=== PATIENT | female | born 1980 | race Caucasian/White ===

== ENCOUNTER 2016-06-11 05:22 | Emergency (ER) | payer OTHER ==
[~2016-06-11] VITALS: Ht 165.1 cm; Wt 74.8 kg
[~2016-06-11 05:22] MED LIST: AGM875T PO; ALPR.5T; AMOX500C2 PO; CTLP20T; CYCL10TA9 PO; HYDR-3454 PO; HYDR-757 PO; HYDR1TAB8 OP; IBUP-2055 PO; METR500T21 PO; NAPR-243 PO; ONDA8TAB9 PO; ONDAN4ODT PO; PRD20T PO; PRD5T PO; SSD50T TOP; TRAM50TA2 PO; TRM50T PO
--- OUTSIDE RECORDS SUMMARY | 2016-06-11 05:30 | XMS REPORT | Continuity of Care Document ---
Author Author [facility] Organization [facility] Address Unknown Phone Unavailable Care Team Providers Care Metropolitan Editor Name Role Phone [facility] PCP Insurance Providers Payer Name Policy Number Subscriber Name Relationship Enter Insurance Name [id number] Stephania Browne Jr 01 Advance Directives Directive Response Recorded Date/Time Advance Directives No 10/04/15 9:27am Health Care Power of Corporate Communications Manager No 10/04/15 9:27am Organ Donor No 10/04/15 9:27am Resuscitation Status Full Code 10/04/15 9:27am Problems Active Problems Medical Problem Onset Date Status Abdominal pain Unknown Acute Bacterial vaginosis Unknown Acute Cholecystitis with cholelithiasis Unknown Acute Contusion of wrist Unknown Acute Dental caries into pulp Unknown Acute Facial swelling Unknown Acute Labile hypertension Unknown Acute Labile hypertension Unknown Acute Small bowel ischemia Unknown Acute Strain of wrist, right Unknown Acute small bowel obstruction with ischemia Unknown Acute Medications Current Home Medications Medication Dose Units Route Directions Days/Qty Instructions Start Date Tramadol Hcl 50 Mg 50 Mg Oral Three Times A Day as needed for Pain 10/03/15 Ibuprofen 200 Mg 400 Mg Oral Daily as needed for Pain TAKES 2 (200 MG) TABLETS 10/04/15 Hydrocodone/Acetaminophen 1 Each 1 Each Oral Every 4HRS as needed for Abdominal Pain 30 10/05/15 Past Home Medications Medication Directions Ordered Status Alprazolam 0.5 Mg Tablet, 08/23/09 Discontinued Citalopram Hydrobromide 20 Mg Tablet, 08/23/09 Discontinued Prednisone 5 Mg Tab, 5 Mg Oral As Directed 11/25/09 Discontinued Silver Sulfadiazine 50 Gm Cr, 0 Topically Three Times A Day 08/02/10 Discontinued Hydrocodone Bitartrate/Ibuprofen 1 Each Tablet, 1 - 2 Each Ophthalmic Q 4 - 6 Hrs Prn 08/02/10 Discontinued Cyclobenzaprine Hcl (Flexeril) 10 Mg Tablet, 1 Each Oral Q8hr Prn 10/18/11 Discontinued Naproxen 500 Mg Tablet, 1 Each Oral Three Times A Day And Prn 10/18/11 Discontinued Naproxen 500 Mg Tablet, 1 Each Oral Three Times A Day And Prn 10/31/11 Discontinued Tramadol Hcl 50 Mg Tab, 50 Mg Oral Q4-6HOURS as needed 10/31/11 Discontinued Ondansetron Hcl 4 Mg Tab, 4 Mg Oral Every 4HRS 10/31/11 Discontinued Amoxicillin 500 Mg Capsule, 2 Each Oral Three Times A Day 09/29/12 Discontinued Prednisone 20 Mg Tab, 40 Mg Oral Daily 09/29/12 Discontinued Amoxicillin/Clavulanate K 875 Mg Tab, 1 Tab Oral Twice A Day 08/01/14 Discontinued Hydrocodone Bit/Acetaminophen 1 Each Tablet, 1 Ea Oral Every 6 Hours as needed for Mild Pain 08/01/14 Discontinued Metronidazole 500 Mg Tablet, 500 Mg Oral Twice A Day 01/01/15 Discontinued Hydrocodone/Acetaminophen 1 Each Tablet, 1 Each Oral Every 4HRS as needed for Pain 10/03/15 Discontinued Ondansetron 8 Mg Tab.rapdis, 8 Mg Oral Every 4HRS as needed for Nausea/ Vomiting 10/03/15 Discontinued Social History Social History Problem Response Recorded Date/Time Alcohol Use Denies Use 10/04/2015 9:27am Recreational Drug Use No 10/04/2015 9:27am Recent Foreign Travel No 10/04/2015 9:27am Recent Infectious Disease Exposure No 10/04/2015 9:27am Hospitalization with Isolation Denies 10/05/2015 2:33pm Sexually Transmitted Disease No 10/04/2015 9:27am HIV/AIDS No 10/04/2015 9:27am Smoking Status Current Everyday Smoker 10/04/2015 9:27am Query Response Start Date Stop Date Smoking Status Current Everyday Smoker Hospital Discharge Instructions Patient Instructions Physician Instructions New, Converted or Re-Newed RX: RX on Chart Plan of Care/Instructions/FU: Dressings off in 48 hours. Incentive spirometry. F/U in 3 weeks Activity as Tolerated: Yes Discharge Diet: No Restrictions Care Plan Patient Instructions:: Dressings off in 48 hours. Incentive spirometry. F/U in 3 weeks Plan of Care Discharge Date 10/05/15 1:35pm Disposition 01 HOME, SELF-CARE Instructions/Education Provided Laparoscopic Cholecystectomy (DC) Forms Provided PDI Surgical Prescriptions See Medication Section Referrals (Unspecified) - Reason(s) for Referral: FOLLOW UP WITH DR WOO ON 10/27/15 AT 11:00 Care Plan and Goals See Discharge Instructions Section Functional Status Query Response Date Recorded Patient Orientation Person Place Time Situation Normal For Age October 05, 2015 2:33pm Comprehension Ability Understands Concepts October 04, 2015 9:27am Allergies, Adverse Reactions, Alerts Allergen Type Severity Reaction Status Last Updated Morphine Allergy Unknown Active 10/04/15 Immunizations Name Given Type Date of Influenza Vaccine 01/27/14 Historical Hepatitis A No Historical Hepatitis B No Historical Tetanus Booster (TDap) Less than 5yrs Historical Vital Signs Acute Vital Signs Vital Response Date/Time Temperature (Fahrenheit) 97.8 degrees F (97.6 - 99.5) 10/05/2015 2:31pm Temperature (Calculated Celsius) 36.32549 degrees C (36.4 - 37.5) 10/05/2015 1:00pm Temperature Source Tympanic 10/05/2015 2:31pm Pulse Rate (adult) 84 bpm (60 - 90) 10/05/2015 2:31pm Respiratory Rate 20 bpm (12 - 24) 10/05/2015 2:31pm O2 Sat by Pulse Oximetry 97 % (88 - 100) 10/05/2015 2:31pm Blood Pressure 133/85 mm Hg 10/05/2015 2:31pm Blood Pressure Mean 101 mm Hg 10/05/2015 1:00pm Pain Pain Intensity 4 10/05/2015 1:00pm Height (Feet) 5 feet 10/04/2015 9:27am Height (Inches) 5.00 inches 10/04/2015 9:27am Height (Calculated Centimeters) 165.501245 cm 10/04/2015 9:27am Weight (Pounds) 162 pounds 10/04/2015 9:27am Weight (Ounces) 0.0 oz 10/04/2015 9:27am Weight (Calculated Grams) 03517.965 gm 10/04/2015 9:27am Weight (Calculated Kilograms) 73.304590 kilograms 10/04/2015 9:27am Calculated BMI 27.0 10/04/2015 9:27am Results Laboratory Results Test Name Result Units Flags Reference Collection Date/Time Result Date/ Time Comments White Blood Count 11.6 10^3/uL H 4.3-11.0 10/03/2015 5:10pm 10/03/2015 5: 19pm Red Blood Count 4.69 10^6/uL 4.35-5.85 10/03/2015 5:10pm 10/03/2015 5: 19pm Hemoglobin 14.6 G/DL 11.5-16.0 10/03/2015 5:10pm 10/03/2015 5:19pm Hematocrit 42 % 35-52 10/03/2015 5:10pm 10/03/2015 5:19pm Mean Corpuscular Volume 89 FL 80-99 10/03/2015 5:10pm 10/03/2015 5: 19pm Mean Corpuscular Hemoglobin 31 PG 25-34 10/03/2015 5:10pm 10/03/2015 5: 19pm Mean Corpuscular Hemoglobin Concent 35 G/DL 32-36 10/03/2015 5:10pm 09/2015 5:19pm Red Cell Distribution Width 12.0 % 10.0-14.5 10/03/2015 5:10pm 2015 5:19pm Platelet Count 310 10^3/uL 130-400 10/03/2015 5:10pm 10/03/2015 5:19pm Mean Platelet Volume 9.3 FL 7.4-10.4 10/03/2015 5:10pm 10/03/2015 5: 19pm Neutrophils (%) (Auto) 50 % 42-75 10/03/2015 5:10pm 10/03/2015 5:19pm Lymphocytes (%) (Auto) 35 % 12-44 10/03/2015 5:10pm 10/03/2015 5:19pm Monocytes (%) (Auto) 10 % 0-12 10/03/2015 5:10pm 10/03/2015 5:19pm Eosinophils (%) (Auto) 5 % 0-10 10/03/2015 5:10pm 10/03/2015 5:19pm Basophils (%) (Auto) 1 % 0-10 10/03/2015 5:10pm 10/03/2015 5:19pm Neutrophils # (Auto) 5.8 X 10^3 1.8-7.8 10/03/2015 5:10pm 10/03/2015 5: 19pm Lymphocytes # (Auto) 4.0 X 10^3 1.0-4.0 10/03/2015 5:10pm 10/03/2015 5: 19pm Monocytes # (Auto) 1.2 X 10^3 H 0.0-1.0 10/03/2015 5:10pm 10/03/2015 5: 19pm Eosinophils # (Auto) 0.5 10^3/uL H 0.0-0.3 10/03/2015 5:10pm 10/03/2015 5 :19pm Basophils # (Auto) 0.1 10^3/uL 0.0-0.1 10/03/2015 5:10pm 10/03/2015 5: 19pm Urine Color YELLOW 10/03/2015 4:39pm 10/03/2015 5:01pm Urine Clarity CLEAR 10/03/2015 4:39pm 10/03/2015 5:01pm Urine pH 7 5-9 10/03/2015 4:39pm 10/03/2015 5:01pm Urine Specific [place] 1.005 * 1.016-1.022 10/03/2015 4:39pm 2015 5:01pm Urine Protein NEGATIVE NEGATIVE 10/03/2015 4:39pm 10/03/2015 5:01pm Urine Glucose (UA) NEGATIVE NEGATIVE 10/03/2015 4:39pm 10/03/2015 5: 01pm Urine RBC (Auto) NEGATIVE NEGATIVE 10/03/2015 4:39pm 10/03/2015 5: 01pm Urine Ketones NEGATIVE NEGATIVE 10/03/2015 4:39pm 10/03/2015 5:01pm Urine Nitrite NEGATIVE NEGATIVE 10/03/2015 4:39pm 10/03/2015 5:01pm Urine Bilirubin NEGATIVE NEGATIVE 10/03/2015 4:39pm 10/03/2015 5: 01pm Urine Urobilinogen NORMAL MG/DL NORMAL 10/03/2015 4:39pm 10/03/2015 5: 01pm Urine Leukocyte Esterase NEGATIVE NEGATIVE 10/03/2015 4:39pm 2015 5:01pm Urine RBC NONE /HPF 10/03/2015 4:39pm 10/03/2015 5:01pm Urine WBC RARE /HPF 10/03/2015 4:39pm 10/03/2015 5:01pm Urine Bacteria NONE /HPF 10/03/2015 4:39pm 10/03/2015 5:01pm Urine Squamous Epithelial Cells 5-10 /HPF 10/03/2015 4:39pm 2015 5:01pm Urine Crystals NONE /LPF 10/03/2015 4:39pm 10/03/2015 5:01pm Urine Casts NONE /LPF 10/03/2015 4:39pm 10/03/2015 5:01pm Urine Mucus NEGATIVE /LPF 10/03/2015 4:39pm 10/03/2015 5:01pm Urine Culture Indicated NO 10/03/2015 4:39pm 10/03/2015 5:01pm Sodium Level 138 MMOL/L 135-145 10/03/2015 5:10pm 10/03/2015 5:42pm Potassium Level 3.8 MMOL/L 3.6-5.0 10/03/2015 5:10pm 10/03/2015 5:42pm Chloride Level 107 MMOL/L 98-107 10/03/2015 5:10pm 10/03/2015 5:42pm Carbon Dioxide Level 24 MMOL/L 21-32 10/03/2015 5:10pm 10/03/2015 5: 42pm Anion Gap 7 MMOL/L 5-14 10/03/2015 5:10pm 10/03/2015 5:42pm Blood Urea Nitrogen 7 MG/DL 7-18 10/03/2015 5:10pm 10/03/2015 5:42pm Creatinine 0.62 MG/DL 0.60-1.30 10/03/2015 5:10pm 10/03/2015 5:42pm BUN/Creatinine Ratio 11 10/03/2015 5:10pm 10/03/2015 5:42pm Estimat Glomerular Filtration Rate > 60 10/03/2015 5:10pm 2015 5:42pm GFR INTERPRETIVE DATA UNITS FOR ESTIMATED GFR (eGFR): mL/min/1.73 M2 REFERENCE RANGE FOR ESTIMATED GFR (eGFR) eGFR NORMAL eGFR >60 MODERATELY DECREASED eGFR 30-59 SEVERLY DECREASED eGFR 15-29 KIDNEY FAILURE <15 (OR DIALYSIS) Glucose Level 84 MG/DL 70-105 10/03/2015 5:10pm 10/03/2015 5:42pm Calcium Level 8.7 MG/DL 8.5-10.1 10/03/2015 5:10pm 10/03/2015 5:42pm Total Bilirubin 0.3 MG/DL 0.1-1.0 10/03/2015 5:10pm 10/03/2015 5:42pm Alkaline Phosphatase 71 U/L 40-136 10/03/2015 5:10pm 10/03/2015 5:42pm Aspartate Amino Transf (AST/SGOT) 11 U/L 5-34 10/03/2015 5:10pm 2015 5:42pm Alanine Aminotransferase (ALT/SGPT) 10 U/L 0-55 10/03/2015 5:10pm 10/02 5:42pm Total Protein 6.5 G/DL 6.4-8.2 10/03/2015 5:10pm 10/03/2015 5:42pm Albumin 4.1 G/DL 3.2-4.5 10/03/2015 5:10pm 10/03/2015 5:42pm Amylase Level 38 U/L 25-125 10/03/2015 5:10pm 10/03/2015 5:42pm Lipase 32 U/L 8-78 10/03/2015 5:10pm 10/03/2015 5:42pm Procedures Procedure Status Date Provider(s) Robot-assisted laparoscopic cholecystectomy Completed 10/05/15 RONALD WOO MD Encounters Encounter Location Arrival/Admit Date Discharge/Depart Date Attending Provider Discharged Inpatient (obs) [facility] 10/04/15 8:41am 1:35pm RONALD WOO MD Departed Emergency Room [facility] 10/03/15 3:51pm 10/02 7:56pm ZAC VICENTE APRN
[2016-06-11] MEDS ORDERED: DEXAMETHASONE PF 10 MG/ML (DECADRON) VIAL IM STA (05:36)
--- NOTE | 2016-06-11 05:42 | ED Cough/URI ---
General Chief Complaint: Cough/Cold/Flu Symptoms Stated Complaint: SORE THROAT, COUGH, WIZZY Source: patient Exam Limitations: no limitations History of Present Illness Time seen by provider: 05:30 Initial Comments Here with report of cough, runny nose, nasal congestion and mild sore throat for the last 2 days. States she overall just doesn't feel well. She is drinking okay but eating a little less. Maybe some mild nausea but no vomiting. Denies diarrhea. Denies fever. Does feel chills. Timing/Duration: getting worse Severity/Quality: mild, dry cough Associated Symptoms: cough, muscle aches, nasal congestion, nasal drainage, sore throat, wheezing Allergies and Home Medications Allergies Coded Allergies: morphine (Verified Allergy, Unknown, 10/04/15) Home Medications No Active Prescriptions or Reported Meds Constitutional: see HPI chillsNo fever EENTM: nose congestion throat pain Respiratory: cough wheezing Cardiovascular: no symptoms reported Gastrointestinal: see HPI nauseaNo vomiting Genitourinary: no symptoms reported Musculoskeletal: no symptoms reported Skin: no symptoms reported Past [id number]-[id number] Hx Patient Social History Alcohol Use: Denies Use Recreational Drug Use: No Smoking Status: Never a Smoker Recent Foreign Travel: No Contact w/Someone Who Travel: No Recent Hopitalizations: No Immunizations Up To Date Tetanus Booster (TDap): Less than 5yrs PED Vaccines UTD: Yes Date of Influenza Vaccine: Jan 27, 2014 Seasonal Allergies Seasonal Allergies: No Surgeries HX Surgeries: Yes (D&C X2) Surgeries: Appendectomy, Section, Gallbladder, Hysterectomy Respiratory Hx Respiratory Disorders: No Cardiovascular Hx Cardiac Disorders: No Neurological Hx Neurological Disorders: No 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 System Hx 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 Disorders: No Sexually Transmitted Disease: No HIV/AIDS: No Female 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 Disorders: Denies [employer] History: Hysterectomy Genitourinary Hx Genitourinary Disorders: No Gastrointestinal Hx Gastrointestinal Disorders: Yes Gastrointestinal Disorders: Gall Bladder Disease Musculoskeletal Hx Musculoskeletal Disorders: Yes Musculoskeletal Disorders: Chronic Back Pain Endocrine Hx Endocrine Disorders: No HEENT HX ENT Disorders: No Loss of Vision: Denies Hearing Impairment: Denies Cancer Hx Cancer: No Psychosocial Hx Psychiatric Problems: No Integumentary HX Skin/Integumentary Disorder: No Blood Transfusions Hx Blood Disorders: No Adverse Reaction to a Blood Tr: No Reviewed Nursing Assessment Reviewed/Agree w Nursing PMH: Yes Family Medical History Significant Family History: No Pertinent Family Hx Family Medial History: Diabetes mellitus FHx: ovarian cancer Physical Exam Vital Signs Vital Sign - Last 12Hours 06/11/16 05:29 O2 Delivery Room Air Capillary Refill : General Appearance: WD/WN no apparent distress HEENT: PERRL/EOMI pharyngeal erythema other (moderate bilateral nares congestion with clear rhinorrhea) Respiratory: lungs clear normal breath sounds Cardiovascular: regular rate, rhythm no murmur Gastrointestinal: non tender soft Extremities: non-tender normal inspection Neurologic/Psychiatric: alert oriented x 3 Skin: normal color warm/dry Progress/Results/Core Measures Results/Orders Vital Signs/I&O Vital Sign - Last 12Hours 06/11/16 05:29 O2 Delivery Room Air Progress Note : Progress Note Seen and evaluated. Decadron 10 mg IM. Discharged home with return precautions. Patient verbalize understanding instructions and agreement with plan. Departure Impression Impression: Primary Impression: Upper respiratory infection Qualified Code: J06.9 - Acute upper respiratory infection, unspecified Additional Impression: Bronchitis Disposition: HOME, SELF-CARE Condition: Stable Departure-Patient Inst. Decision time for Depature: 05:30 Referrals: [facility] (PCP/Family) Primary Care Physician Patient Instructions: Viral Upper Respiratory Infection, Adult (DC), Acute Bronchitis, Adult (DC) Add. Discharge Instructions: All discharge instructions reviewed with patient and/or family. Voiced understanding. You may take ibuprofen and/or Tylenol as needed for fever pain control. You may use Afrin nasal spray or the generic, 12 hour relief, 2 sprays to each nostril twice daily for 3 days only and then stop. Do not use for more than 3 days. You may get this [id number]. Follow-up with your in a few days for recheck. Return for worse pain, fever, vomiting, breathing problems or other concerns as needed. Scripts No Active Prescriptions or Reported Meds Work/School Note: Work Release Form Date Seen in the Emergency Department: Jun 11, 2016 Return to Work: Jun 12, 2016 Restrictions: No Restrictions ADELE THRASHER MD Jun 11, 2016 05:42
[2016-06-11 06:02] VITALS: BP 142/93
== END 2016-06-11 06:02 | disposition home or self-care (01) ==
LOC: EDUNIT# 05:22 → ER 05:26
DX: J06.9 Acute upper respiratory infection, unspecified (principal); J40 Bronchitis, not specified as acute or chronic
CPT/HCPCS: 96372; 99282

== ENCOUNTER 2016-12-30 15:23 | Emergency (ER) | payer OTHER ==
[~2016-12-30] VITALS: Ht 165.1 cm; Wt 77.1 kg
--- OUTSIDE RECORDS SUMMARY | 2016-12-30 15:29 | XMS REPORT ---
Author Author RENÉE WONG Organization [employer] Address Unknown Phone Unavailable Care Team Providers Care Monitor Technician Name Role Phone RENÉE WONG Unavailable Allergies No Known Allergies Problems Problem Type Condition Code Onset Dates Condition Status Problem Leukocytosis, unspecified 288.60 Active Problem Essential hypertension, benign 401.1 Active Problem Acute pharyngitis 462 Active Problem Panic disorder F41.0 Active Problem STATE HEP A (ADULT) DX V05.3 Active Problem Major depressive disorder, recurrent episode, severe F33.2 Active Problem Fever, unspecified 780.60 Active Problem Esophageal reflux 530.81 Active Problem Other malaise and fatigue 780.79 Active Problem Leukorrhea, not specified as infective 623.5 Active Assessment Panic disorder F41.0 Active Assessment Major depressive disorder, recurrent episode, severe F33.2 Active Problem Major depressive disorder, recurrent episode, severe, without mention of psychotic behavior 296.33 Active Problem Nondependent tobacco use disorder 305.1 Active Medications No Known Medications Procedures Procedure Coding System Code Date Psych diagnostic evaluation, established patient CPT-4 54275 May 18, 2015 Results No Known Results Summary Purpose [employer] Submission
--- OUTSIDE RECORDS SUMMARY | 2016-12-30 15:29 | XMS REPORT ---
Author Author MARY CARMEN CUBA Organization [employer] Address Unknown Phone Unavailable Care Team Providers Care Radiologist Diagnostic Name Role Phone MARY CARMEN CUBA CP Unavailable Allergies No Known Allergies Problems Problem Type Condition Code Onset Dates Condition Status Problem Leukocytosis, unspecified 288.60 Active Problem Essential hypertension, benign 401.1 Active Problem Acute pharyngitis 462 Active Problem Major depressive disorder, recurrent episode, severe, without mention of psychotic behavior 296.33 Active Problem Nondependent tobacco use disorder 305.1 Active Problem Panic disorder F41.0 Active Problem STATE HEP A (ADULT) DX V05.3 Active Problem Major depressive disorder, recurrent episode, severe F33.2 Active Problem Fever, unspecified 780.60 Active Problem Esophageal reflux 530.81 Active Problem Other malaise and fatigue 780.79 Active Problem Leukorrhea, not specified as infective 623.5 Active Medications No Known Medications Results No Known Results Summary Purpose [employer] Submission
--- OUTSIDE RECORDS SUMMARY | 2016-12-30 15:29 | XMS REPORT ---
Author Author RENÉE WONG Organization [employer] Address Unknown Phone Unavailable Care Team Providers Care Pool Hall Inspector Name Role Phone RENÉE WONG Unavailable Allergies [...] Medications Procedures Procedure Coding System Code Date Psychotherapy, patient &/family, 30 minutes, established patient CPT-4 56194 May 19, 2015 Results No Known Results Summary Purpose [employer] Submission
--- OUTSIDE RECORDS SUMMARY | 2016-12-30 15:29 | XMS REPORT ---
Author ARA Verma [facility] [employer] Address Unknown Phone Unavailable Care Team Providers Care Repairer Helper Name Role Phone ARA CONNOLLY CP Unavailable Allergies, Adverse Reactions, Alerts Substance Reaction Event Type N.K.D.A. Info Not Available Non Drug Allergy Problems Problem Type Condition Code Onset Dates Condition Status Assessment Insomnia, unspecified type G47.00 Active Problem Panic disorder F41.0 Active Assessment Major depressive disorder, recurrent episode, severe F33.2 Active Problem Vaginal discharge N89.8 Active Problem Insomnia, unspecified type G47.00 Active Problem Gastroesophageal reflux disease with esophagitis K21.0 Active Problem Constipation, unspecified constipation type K59.00 Active Problem Major depressive disorder, recurrent episode, severe F33.2 Active Problem Anxiety F41.9 Active Problem Low back pain M54.5 Active Assessment Vaginal discharge N89.8 Active Assessment Constipation, unspecified constipation type K59.00 Active Assessment Low back pain M54.5 Active Assessment Gastroesophageal reflux disease with esophagitis K21.0 Active Medications Medication Code System Code Instructions Start Date End Date Status Dosage Amitriptyline HCl [facility] [address]-89 100 MG Orally Once a day October 24, 2015 1 tablet Pepcid [facility] [address]-12 20 mg Orally twice a day Dec 20, 2015 1 tablet at bedtime Tramadol HCl [facility] [address]-68 50 mg Orally 3 times a day September 19, 2015 1 tablet Flagyl [facility] [address]-70 500 MG Orally every 8 hrs Dec 20, 2015 Dec 30, 2015 1 tablet Xanax [facility] [address]-67 0.25 MG Orally 2 times a day October 24, 2015 1 tablet MiraLax [facility] [address]-61 17 gm/dose Orally Once a day September 19, 2015 1 cap-ful mixed with 8 oz of water Protonix [facility] [address]-05 40 mg Orally Once a day November 17, 2015 1 tablet Procedures Procedure Coding System Code Date Office Visit, Est Pt., Level 4 CPT-4 89467 Dec 20, 2015 Vital Signs Date/Time: Dec 20, 2015 Cardiac Monitoring Heart Rate 90 bpm Weight 161 lbs Height 65.5 in BMI 26.38 Index Blood Pressure Diastolic 90 mmHg Blood Pressure Systolic 130 mmHg Results No Known Results Summary Purpose [employer] Submission
--- OUTSIDE RECORDS SUMMARY | 2016-12-30 15:30 | XMS REPORT ---
Author ARA Verma [facility] [employer] Address Unknown Phone Unavailable Care Team Providers Care Legal Coordinator Name Role Phone ARA CONNOLLY CP Unavailable Allergies No Known Allergies Problems Problem Type Condition Code Onset Dates Condition Status Problem Panic disorder F41.0 Active Problem Vaginal discharge N89.8 Active Problem Insomnia, unspecified type G47.00 Active Problem Gastroesophageal reflux disease with esophagitis K21.0 Active Problem Constipation, unspecified constipation type K59.00 Active Problem Major depressive disorder, recurrent episode, severe F33.2 Active Problem Anxiety F41.9 Active Problem Low back pain M54.5 Active Medications Medication Code System Code Instructions Start Date End Date Status Dosage Xanax [facility] [address]-33 0.25 MG Orally 2 times a day October 24, 2015 1 tablet Results No Known Results Summary Purpose [employer] Submission
--- OUTSIDE RECORDS SUMMARY | 2016-12-30 15:30 | XMS REPORT ---
Author ARA Verma [facility] [employer] Address Unknown Phone Unavailable Care Team Providers Care Cell Maker Name Role Phone ARA CONNOLLY CP Unavailable Allergies No Known Allergies Problems Problem Type Condition Code Onset Dates Condition Status Problem Anxiety F41.9 Active Problem Low back pain M54.5 Active Problem Insomnia, unspecified type G47.00 Active Problem Panic disorder F41.0 Active Assessment Gastroesophageal reflux disease without esophagitis K21.9 Active Problem Constipation, unspecified constipation type K59.00 Active Problem Major depressive disorder, recurrent episode, severe F33.2 Active Medications Medication Code System Code Instructions Start Date End Date Status Dosage Protonix [facility] [address]-70 40 mg Orally Once a day November 17, 2015 1 tablet Results No Known Results Summary Purpose [employer] Submission
[2016-12-30] MEDS ORDERED: HYDROcodone/APAP 5 MG/325 MG (LORTAB) TAB PO ONE (15:45)
--- NOTE | 2016-12-30 15:49 | ED Upper Extremity ---
General Chief Complaint: Upper Extremity Stated Complaint: R WRIST INJ Nursing Triage Note: PT TRIPPED AND FELL LANDING WITH OUTSTRETCHED R ARM. SHE IS C/O R WRIST AND HAND PAIN. SHE DENIES ANY OTHER INJURY. Nursing Sepsis Screen: No Definite Risk Source: patient Exam Limitations: no limitations History of Present Illness Time seen by provider: 15:48 Initial Comments To ER with right wrist pain. Patient states that she tripped and fell while she was outside working with her garden hose. She flexed the right wrist and has pain over the dorsal aspect as well as swelling of the right wrist. Onset: just prior to arrival Severity: moderate Pain/Injury Location: right wrist Modifying Factors: Worse With Movement Allergies and Home Medications Allergies Coded Allergies: morphine (Verified Allergy, Unknown, 10/04/15) Home Medications No Active Prescriptions or Reported Meds Constitutional: see HPI EENTM: see HPI Respiratory: no symptoms reported Cardiovascular: no symptoms reported Genitourinary: no symptoms reported Musculoskeletal: see HPI Skin: no symptoms reported Psychiatric/Neurological: No Symptoms Reported Past Hqryxrf-Eqyres-Mwtztd Hx Patient Social History Alcohol Use: Denies Use Recreational Drug Use: No Smoking Status: Current Everyday Smoker Type Used: Cigarettes 2nd Hand Smoke Exposure: Yes Recent Foreign Travel: No Contact w/Someone Who Travel: No Recent Infectious Disease Expo: No Recent Hopitalizations: No Physical Abuse: No Sexual Abuse: No Immunizations Up To Date Tetanus Booster (TDap): Less than 5yrs PED Vaccines UTD: Yes Date of Influenza Vaccine: Jan 27, 2014 Seasonal Allergies Seasonal Allergies: No Surgeries History of Surgeries: Yes (D&C X2) Surgeries: Appendectomy, Section, Gallbladder, Hysterectomy Respiratory History of Respiratory Disorde: No Currently Using CPAP: No Currently Using BIPAP: No Cardiovascular History of Cardiac Disorders: No Neurological History of Neurological Disord: No 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 System Hx 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 Disorders: No Sexually Transmitted Disease: No HIV/AIDS: No Female 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 Gastrointestinal History of Gastrointestinal Di: Yes Gastrointestinal Disorders: Gall Bladder Disease Musculoskeletal History of Musculoskeletal Dis: Yes Musculoskeletal Disorders: Chronic Back Pain Endocrine History of Endocrine Disorders: No HEENT Loss of Vision: Denies Hearing Impairment: Denies Cancer History of Cancer: No Psychosocial History of Psychiatric Problem: No Suicide Risk Score: 0 Integumentary History of Skin or Integumenta: No Blood Transfusions History of Blood Disorders: No Adverse Reaction to a Blood Tr: No Family Medical History Significant Family History: No Pertinent Family Hx Family Medial History: Diabetes mellitus FHx: ovarian cancer Physical Exam Vital Signs Vital Sign - Last 12Hours 12/30/16 15:36 Temp 97.2 Pulse 89 Resp 18 B/P (MAP) 135/87 Pulse Ox 97 O2 Delivery Room Air Capillary Refill : Less Than 3 Seconds General Appearance: WD/WN, no apparent distress HEENT: PERRL/EOMI Neck: non-tender, full range of motion Respiratory: no accessory muscle use Gastrointestinal: soft Elbow/Forearm: normal inspection, non-tender Neurologic/Tendon: normal sensation, normal motor functions, normal tendon functions Neurologic/Psychiatric: alert, normal mood/affect, oriented x 3 Skin: normal color, warm/dry Progress/Results/Core Measures Results/Orders My Orders Orders - ZAC VICENTE APRN Wrist, Right, 3 Views Or More (12/30/16 15:42) Hydrocodone/Apap 5/325 Tablet (Lortab 5 (12/30/16 15:45) Hand, Right, 3 Views (12/30/16 15:42) Medications Given in ED Current Medications Medications Dose Ordered Sig/Lance Route Start Time Stop Time Status Last Admin Dose Admin Acetaminophen/ Hydrocodone Bitart 1 tab ONCE ONCE PO 12/30/16 15:45 12/30/16 15:46 DC 12/30/16 15:48 1 TAB Vital Signs/I&O Vital Sign - Last 12Hours 12/30/16 15:36 Temp 97.2 Pulse 89 Resp 18 B/P (MAP) 135/87 Pulse Ox 97 O2 Delivery Room Air Blood Pressure Mean: 103 Departure Impression Impression: Primary Impression: Strain of wrist, right Disposition: 01 HOME, SELF-CARE Condition: Improved Departure-Patient Inst. Decision time for Depature: 16:29 Referrals: [facility] (PCP/Family) Primary Care Physician Patient Instructions: Common Wrist Injuries (DC) Add. Discharge Instructions: 1. We do not see any fracture or dislocation on your wrist x-rays. Your fingers look okay as well. You have persistent pain at the end of this week he should follow-up with your doctor to discuss obtaining an MRI to get a better look ligaments and bones in the wrist 2. Return to ER for any concerns 3. Wear the splint for the next 3-5 days until the pain subsides. Tylenol and Motrin for pain All discharge instructions reviewed with patient and/or family. Voiced understanding. Scripts No Active Prescriptions or Reported Meds ZAC VICENTE APRN Dec 30, 2016 15:49
--- NOTE | 2016-12-30 16:07 | Diagnostic Imaging Report ---
INDICATION: Right hand pain. COMPARISON: None. FINDINGS: 3 views of the right hand demonstrate no fracture or dislocation. Articular surfaces are normal. No foreign body seen. No bony erosion. IMPRESSION: Negative right hand. Dictated by: Dictated on workstation # [id number]
--- NOTE | 2016-12-30 16:11 | Diagnostic Imaging Report ---
INDICATION: Fall, right wrist pain. COMPARISON: None. EXAMINATION: Three views of the right wrist were obtained. FINDINGS: No fracture or dislocation. Articular surfaces are normal. No foreign body. IMPRESSION: Negative right wrist. Dictated by: Dictated on workstation # [id number]
[2016-12-30 16:53] VITALS: BP 135/87
== END 2016-12-30 16:53 | disposition home or self-care (01) ==
LOC: EDUNIT# 15:23 → ER 15:24
DX: S66.911A Strain of unspecified muscle, fascia and tendon at wrist and hand level, right hand, initial encounter (principal); F17.210 Nicotine dependence, cigarettes, uncomplicated; Z87.19 Personal history of other diseases of the digestive system; Z80.41 Family history of malignant neoplasm of ovary; Z90.49 Acquired absence of other specified parts of digestive tract; Z87.59 Personal history of other complications of pregnancy, childbirth and the puerperium; Z90.710 Acquired absence of both cervix and uterus; W01.0XXA Fall on same level from slipping, tripping and stumbling without subsequent striking against object, initial encounter; Y92.007 Garden or yard of unspecified non-institutional (private) residence as the place of occurrence of the external cause
CPT/HCPCS: 73110; 73130; 99283

== ENCOUNTER 2017-12-11 03:22 | Emergency (ER) | payer OTHER ==
[~2017-12-11] VITALS: Ht 165.1 cm; Wt 72.6 kg
[2017-12-11 03:41] LABS: BILIRUBIN,URINE NEGATIVE (NEGATIVE); CLARITY,URINE CLEAR; COLOR,URINE YELLOW; GLUCOSE, URINE (UA) NEGATIVE (NEGATIVE); KETONES,URINE NEGATIVE (NEGATIVE); LEUKOCYTE ESTERASE ,URINE NEGATIVE (NEGATIVE); NITRITE,URINE NEGATIVE (NEGATIVE); PH,URINE 6.5 (5-9); PROTEIN,URINE NEGATIVE (NEGATIVE); UROBILINOGEN,URINE 1 MG/DL (NORMAL)
--- NOTE | 2017-12-11 04:03 | ED Abdominal Pain ---
General Chief Complaint: Abdominal/GI Problems Stated Complaint: ABD PAIN Nursing Triage Note: Pt presents to er with complaint of low abd pain and low back pain. states she took an ibuprofen before bed around 11pm. Sepsis Screen: No Definite Risk Source of Information: Patient Exam Limitations: No Limitations History of Present Illness Date Seen by Provider: Dec 11, 2017 Time Seen by Provider: 03:33 Initial Comments C/O LOWER ABDOMINAL PAIN AND LOWER BACK PAIN SINCE 0900 YESTERDAY C/O PAIN ON URINATIONS + NAUSEA, NO VOMITING. NO DIARRHEA NO FEVER NO KNOWN SICK CONTACTS OR SUSPICIOUS FOODS PT HAS HAD HYST / OVARIES INTACT; APPY AND CHOLECYSTECTOMY PCP: [facility] [place] Allergies and Home Medications Allergies Coded Allergies: morphine (Verified Allergy, Unknown, 10/04/15) Home Medications No Active Prescriptions or Reported Meds Patient Home Medication List Home Medication List Reviewed: Yes Review of Systems Constitutional: no symptoms reported; No chills, No diaphoresis, No fever Respiratory: No Symptoms Reported Cardiovascular: No Symptoms Reported Gastrointestinal: See HPI, Abdominal Pain; Denies Constipated, Denies Diarrhea ; Nausea; Denies Vomiting Genitourinary: See HPI, Flank Pain, Pain Musculoskeletal: see HPI, back pain Skin: no symptoms reported Psychiatric/Neurological: No Symptoms Reported Endocrine: No Symptoms Reported Hematologic/Lymphatic: No Symptoms Reported Past Jwgkmuu-Dguugp-Xnoydo Hx Patient Social History Alcohol Use: Denies Use Recreational Drug Use: No Smoking Status: Former Smoker Type Used: Cigarettes 2nd Hand Smoke Exposure: Yes Recent Foreign Travel: No Contact w/Someone Who Travel: No Recent Infectious Disease Expo: No Recent Hopitalizations: No Immunizations Up To Date Tetanus Booster (TDap): Less than 5yrs PED Vaccines UTD: Yes Date of Influenza Vaccine: Jan 27, 2014 Seasonal Allergies Seasonal Allergies: No Past Medical History Surgeries: Yes (D&C X2; HYST/OVARIES INTACT) Appendectomy, Section, Gallbladder, Hysterectomy Respiratory: No Currently Using CPAP: No Currently Using BIPAP: No Cardiac: No Neurological: No 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 Disorders: No 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00" Weight: 160lbs. 0oz. [id number]; 27.0 BMI Method:Stated General Appearance: WD/WN, no apparent distress, other (WALKS UPRIGHT AND MOVES WITHOUT DIFFICULTY) Respiratory: normal breath sounds, no respiratory distress, no accessory muscle use Cardiovascular: regular rate, rhythm, no edema, no JVD, no murmur Gastrointestinal: normal bowel sounds, soft, no organomegaly, no pulsatile mass ; No distended, No guarding, No rebound; tenderness (MILS SUPRAPUBIC TENDERNESS) ; No hernia, No mass Extremities: normal inspection, no pedal edema, normal capillary refill Back: CVA tenderness (R) (MILD), CVA tenderness (L) (MILD) Neurologic/Psychiatric: day treatment clinician/art therapist II-XII nml as tested, no motor/sensory deficits, alert, normal mood/affect, oriented x 3 Skin: normal color, warm/dry; No rash Progress/Results/Core Measures Results/Orders Lab Results Laboratory Tests Test 12/11/17 03:35 12/11/17 04:29 Range/Units Urine Color YELLOW Urine Clarity CLEAR Urine pH 6.5 5-9 Urine Specific [place] 1.020 1.016-1.022 Urine Protein NEGATIVE NEGATIVE Urine Glucose (UA) NEGATIVE NEGATIVE Urine Ketones NEGATIVE NEGATIVE Urine Nitrite NEGATIVE NEGATIVE Urine Bilirubin NEGATIVE NEGATIVE Urine Urobilinogen 1 NORMAL MG/DL Urine Leukocyte Esterase NEGATIVE NEGATIVE Urine RBC (Auto) NEGATIVE NEGATIVE Urine RBC NONE /HPF Urine WBC NONE /HPF Urine Squamous Epithelial Cells >50 H /HPF Urine Crystals NONE /LPF Urine Bacteria TRACE /HPF Urine Casts NONE /LPF Urine Mucus LARGE H /LPF Urine Culture Indicated NO White Blood Count 9.9 4.3-11.0 10^3/uL Red Blood Count 4.49 4.35-5.85 10^6/uL Hemoglobin 13.8 11.5-16.0 G/DL Hematocrit 40 35-52 % Mean Corpuscular Volume 89 80-99 FL Mean Corpuscular Hemoglobin 31 25-34 PG Mean Corpuscular Hemoglobin Concent 35 32-36 G/DL Red Cell Distribution Width 12.5 10.0-14.5 % Platelet Count 328 130-400 10^3/uL Mean Platelet Volume 9.5 7.4-10.4 FL Neutrophils (%) (Auto) 57 42-75 % Lymphocytes (%) (Auto) 30 12-44 % Monocytes (%) (Auto) 10 0-12 % Eosinophils (%) (Auto) 3 0-10 % Basophils (%) (Auto) 1 0-10 % Neutrophils # (Auto) 5.6 1.8-7.8 X 10^3 Lymphocytes # (Auto) 3.0 1.0-4.0 X 10^3 Monocytes # (Auto) 1.0 0.0-1.0 X 10^3 Eosinophils # (Auto) 0.3 0.0-0.3 10^3/uL Basophils # (Auto) 0.1 0.0-0.1 10^3/uL Sodium Level 138 135-145 MMOL/L Potassium Level 3.4 L 3.6-5.0 MMOL/L Chloride Level 104 98-107 MMOL/L Carbon Dioxide Level 24 21-32 MMOL/L Anion Gap 10 5-14 MMOL/L Blood Urea Nitrogen 11 7-18 MG/DL Creatinine 0.62 0.60-1.30 MG/DL Estimat Glomerular Filtration Rate > 60 BUN/Creatinine Ratio 18 Glucose Level 96 70-105 MG/DL Calcium Level 8.8 8.5-10.1 MG/DL Corrected Calcium 8.8 8.5-10.1 MG/DL Total Bilirubin 0.5 0.1-1.0 MG/DL Aspartate Amino Transf (AST/SGOT) 11 5-34 U/L Alanine Aminotransferase (ALT/SGPT) 10 0-55 U/L Alkaline Phosphatase 70 40-136 U/L Total Protein 6.4 6.4-8.2 GM/DL Albumin 4.0 3.2-4.5 GM/DL Amylase Level 31 25-125 U/L Lipase 24 8-78 U/L My Orders Orders - MARLON SHI DO Ua Culture If Indicated (12/11/17 03:34) Saline Lock/Iv-Start (12/11/17 04:16) Ct Abdomen/Pelvis W (12/11/17 04:16) Amylase (12/11/17 04:16) Cbc With Automated Diff (12/11/17 04:16) Comprehensive Metabolic Panel (12/11/17 04:16) Lipase (12/11/17 04:16) Abdomen, Flat & Upright/Decub (12/11/17 04:16) Saline Lock/Iv-Start (12/11/17 04:16) Lactated Ringers (Lr 1000 Ml Iv Solution (12/11/17 04:16) Ondansetron Injection (Zofran Injectio (12/11/17 04:30) Iohexol Injection (Omnipaque 350 Mg/Ml 1 (12/11/17 05:00) Ns (Ivpb) (Sodium Chloride 0.9%) (12/11/17 05:00) Ketorolac Injection (Toradol Injection) (12/11/17 05:30) Medications Given in ED Current Medications Medications Dose Ordered Sig/Lance Route Start Time Stop Time Status Last Admin Dose Admin Iohexol 100 ml ONCE ONCE IV 12/11/17 05:00 12/11/17 05:01 UNV 12/11/17 05:02 100 ML Lactated Ringer's 1,000 ml @ 0 mls/hr Q0M ONCE IV 12/11/17 04:16 12/11/17 04:18 DC 12/11/17 04:27 1,000 MLS/HR Ondansetron HCl 4 mg ONCE ONCE IVP 12/11/17 04:30 12/11/17 04:31 DC 12/11/17 04:27 4 MG Sodium Chloride 80 ml ONCE ONCE IV 12/11/17 05:00 12/11/17 05:01 UNV 12/11/17 05:02 80 ML Vital Signs/I&O 12/11/17 03:30 Temp 98.5 Pulse 91 Resp 18 B/P (MAP) 145/96 (112) Pulse Ox 98 O2 Delivery Room Air Blood Pressure Mean: 112 Progress Progress Note : Progress Note UNEVENTFUL ER STAY PT SLEPT/RESTED QUIETLY FOR MOST OF ER STAY WALKS UPRIGHT AND MOVES WITHOUT DIFFICULTY Diagnostic Imaging Comments CT ABDOMEN/PELVIS--2.4 X 2.2 X 2.6 CM RIGHT OVARIAN CYST, OTHERWISE NO ACUTE PROCESS, PER [facility] VIA FAX @ [id number] Reviewed: Reviewed by Me Departure Impression Primary Impression: Right ovarian cyst Additional Impression: LOWER ABDOMINAL AND LOW BACK PAIN Disposition: HOME, SELF-CARE Condition: Stable Departure-Patient Inst. Referrals: [facility] (PCP/Family) Primary Care Physician Patient Instructions: Acute Abdomen (Belly Pain), Adult (DC), Ovarian Cyst (DC) Add. Discharge Instructions: LOTS OF CLEAR LIQUIDS ACTIVITIES TOLERATED FOLLOW UP WITH [facility] IN 2-3 DAYS IF NO BETTER RETURN TO ER IF WORSE All discharge instructions reviewed with patient and/or family. Voiced understanding. Scripts Ketorolac Tromethamine (Ketorolac Tromethamine) 10 Mg Tablet 10 MG PO Q6H for Pain, #15 TAB Prov: MARLON SHI DO 12/11/17 Ondansetron (Zofran Odt) 4 Mg Tab.rapdis 4 MG PO Q4H for Nausea/Vomiting, #10 TAB Prov: MARLON SHI DO 12/11/17 MARLON SHI DO Dec 11, 2017 04:03
[2017-12-11 04:14] LABS: BACTERIA,URINE TRACE /HPF; SQUAMOUS EPITHELIAL CELL,UR >50 /HPF
[2017-12-11] MEDS ORDERED: LACTATED RINGERS 1,000 ML IV ONE (04:16)
[2017-12-11] MEDS ORDERED: ONDANSETRON 4 MG/2 ML (SDV) Z0FRAN IVP ONE (04:30)
[2017-12-11 04:34] LABS: BASOPHILS # (AUTO) 0.1 10^3/uL (0.0-0.1); BASOPHILS % (AUTO) 1 % (0-10); EOSINOPHILS # (AUTO) 0.3 10^3/uL (0.0-0.3); EOSINOPHILS % (AUTO) 3 % (0-10); HEMATOCRIT 40 % (35-52); HEMOGLOBIN 13.8 G/DL (11.5-16.0); LYMPHOCYTES % (AUTO) 30 % (12-44); MEAN CORPUSCULAR HEMOGLOBIN 31 PG (25-34); MEAN CORPUSCULAR HGB CONC 35 G/DL (32-36); MEAN CORPUSCULAR VOLUME 89 FL (80-99); MEAN PLATELET VOLUME 9.5 FL (7.4-10.4); MONOCYTES % (AUTO) 10 % (0-12); NEUTROPHILS # (AUTO) 5.6 X 10^3 (1.8-7.8); NEUTROPHILS % (AUTO) 57 % (42-75); PLATELET COUNT 328 10^3/uL (130-400); RED BLOOD COUNT 4.49 10^6/uL (4.35-5.85); RED CELL DISTRIBUTION WIDTH 12.5 % (10.0-14.5); WHITE BLOOD COUNT 9.9 10^3/uL (4.3-11.0)
[2017-12-11 04:57] LABS: ALANINE AMINOTRANSFERASE 10 U/L (0-55); ALKALINE PHOSPHATASE 70 U/L (40-136); AMYLASE 31 U/L (25-125); BILIRUBIN,TOTAL 0.5 MG/DL (0.1-1.0); BUN/CREATININE RATIO 18; CALCIUM 8.8 MG/DL (8.5-10.1); CARBON DIOXIDE 24 MMOL/L (21-32); CHLORIDE 104 MMOL/L (98-107); CREATININE SERUM 0.62 MG/DL (0.60-1.30); GFR ESTIMATED > 60; GLUCOSE 96 MG/DL (70-105); LIPASE 24 U/L (8-78); POTASSIUM 3.4 MMOL/L (3.6-5.0); SODIUM 138 MMOL/L (135-145); TOTAL PROTEIN 6.4 GM/DL (6.4-8.2)
[2017-12-11] MEDS ORDERED: IOHEXOL 350 MG/ML 100 ML (OMNIPAQUE 350) VIAL IV ONE (05:00)
[2017-12-11] MEDS ORDERED: NS 250 ML (IVPB) BAG IV ONE (05:00)
[2017-12-11] MEDS ORDERED: KETO10TA PO (05:29)
[2017-12-11] MEDS ORDERED: ONDA4TAB8 PO (05:29)
[2017-12-11] MEDS ORDERED: KETOROLAC 30 MG/ML VIAL IVP ONE (05:30)
[2017-12-11 05:34] VITALS: BP 145/96
--- NOTE | 2017-12-11 06:39 | Diagnostic Imaging Report ---
PROCEDURE: CT abdomen and pelvis with contrast. TECHNIQUE: Multiple contiguous axial images were obtained through the abdomen and pelvis after administration of intravenous contrast. INDICATION: Abdominal and back pain. Comparison made with prior examination 01/01/2015. FINDINGS: The heart size is normal. The lung bases are clear. The liver is normal in size without focal lesions. There is no biliary ductal dilatation. Gallbladder appears to be surgically absent. Spleen is normal. The pancreas and adrenal glands are unremarkable. Kidneys are normal in appearance. Aorta is nonaneurysmal. Bowel gas pattern is nonspecific. There is no free air. There is no ascites. There are no focal inflammatory changes. There is a 2.6 cm right adnexal cyst. Uterus is surgically absent. Osseous structures are unremarkable. IMPRESSION: Right ovarian cyst otherwise unremarkable CT abdomen and pelvis. Dictated by: Dictated on workstation # [id number]
--- NOTE | 2017-12-11 07:29 | Diagnostic Imaging Report ---
INDICATION: Abdominal pain and back pain. Two views were obtained. FINDINGS: The lung bases are clear. Bowel gas pattern is nonspecific. There is no free air. There are no abnormal abdominal calcifications. IMPRESSION: Nonspecific bowel gas pattern. Dictated by: Dictated on workstation # [id number]
== END 2017-12-11 05:34 | disposition home or self-care (01) ==
LOC: EDUNIT# 03:22 → ER 03:24
DX: N83.202 Unspecified ovarian cyst, left side (principal); M54.5 Low back pain; Z80.41 Family history of malignant neoplasm of ovary; Z90.49 Acquired absence of other specified parts of digestive tract; Z88.5 Allergy status to narcotic agent; Z87.891 Personal history of nicotine dependence; Z90.89 Acquired absence of other organs; Z87.59 Personal history of other complications of pregnancy, childbirth and the puerperium; Z90.710 Acquired absence of both cervix and uterus; Z87.448 Personal history of other diseases of urinary system
CPT/HCPCS: 36415; 74019; 74177; 80053; 81000; 82150; 83690; 85025

== ENCOUNTER 2017-12-30 16:02 | Emergency (ER) | payer OTHER ==
[~2017-12-30] VITALS: Ht 165.1 cm; Wt 74.8 kg
[~2017-12-30 16:02] MED LIST changes: +HYDR-4226 PO; +KETO10TA PO; +ONDA4TAB8 PO
--- OUTSIDE RECORDS SUMMARY | 2017-12-30 16:06 | XMS REPORT ---
Author Author LESLEYPREETSOHA [facility] Address [address] [place] [address] Care Team Providers Care Casualty Claims Supervisor Name Role Phone SOHA SUTTON Unavailable PROBLEMS Type Condition ICD9-CM Code [id number] Code Onset Dates Condition Status SNOMED Code Problem Panic disorder F41.0 Active 207812321 Problem Anxiety F41.9 Active 41839635 Problem Major depressive disorder, recurrent episode, severe F33.2 Active 646878477114 Problem Fatigue, unspecified type R53.83 Active 46138582 Problem Gastroesophageal reflux disease with esophagitis K21.0 Active 243768996 Problem Constipation, unspecified constipation type K59.00 Active 26193478 Problem Low back pain M54.5 Active 308946497 Problem Vaginal discharge N89.8 Active 549364518 Problem Insomnia, unspecified type G47.00 Active 436960651 ALLERGIES Substance Reaction Event Type Date Status Morphine Sulfate rash Drug Allergy Apr, Active ENCOUNTERS Encounter Location Date Diagnosis [facility] IN [facility] [id number] [place] [address] August, Bronchitis J40 [facility] [id number] [place] [address] 39085- 1909 Apr, Wheezing R06.2 ; Body aches R52 and Acute bronchitis, unspecified organism J20.9 [facility] IN [facility] [id number] [place] [address]68 Mar, Other viral agents as the cause of diseases classified elsewhere B97.89 and Acute upper respiratory infection, unspecified J06.9 [facility] [id number] [place] [address] 10492- 4428 August, [facility] [address] [address] August, [place] [address] [place] [address] 34885- 9449 August, Major depressive disorder, recurrent episode, severe F33.2 ; Panic disorder F41.0 ; Insomnia, unspecified type G47.00 ; Gastroesophageal reflux disease with esophagitis K21.0 ; Low back pain M54.5 ; Constipation, unspecified constipation type K59.00 and Fatigue, unspecified type R53.83 [facility] IN [facility] [id number] [place] [address]6213 -8472 Jul, Sore throat J02.9 and Exposure to Streptococcal pharyngitis Z20.818 [place] [id number] [place] [address] 72695- 1338 Feb, [place] [id number] [place] [address] 76604- 4776 Nov, Major depressive disorder, recurrent episode, severe F33.2 ; Insomnia, unspecified type G47.00 ; Gastroesophageal reflux disease with esophagitis K21.0 ; Low back pain M54.5 ; Constipation, unspecified constipation type K59.00 and Vaginal discharge N89.8 [place] [id number] [place] [address] 38215- 3800 Oct, Gastroesophageal reflux disease without esophagitis K21.9 [place] [id number] [place] [address] 97393- 7935 Oct, [place] [id number] [place] [address] 16583- 0294 Sep, Major depressive disorder, recurrent episode, severe F33.2 ; Panic disorder F41.0 ; Low back pain M54.5 and Vaginal odor N89.8 [place] [id number] [place] [address] 56781- 1354 Sep, [place] [id number] [place] [address] 88519- 6258 August, Frequent urination R35.0 ; Encounter to establish care Z76.89 ; Abscess L02.91 ; Insomnia, unspecified type G47.00 ; Anxiety F41.9 ; Low back pain M54.5 ; Other chronic pain G89.29 and Constipation, unspecified constipation type K59.00 [facility] [address] [address] Apr, Major depressive disorder, recurrent episode, severe F33.2 and Panic disorder F41.0 [facility] [id number] [place] [address] 82508- 6036 Apr, [facility] [id number] [place] [address] 78314- 5221 Apr, Major depressive disorder, recurrent episode, severe F33.2 and Panic disorder F41.0 [facility] [id number] [place] [address] 84027- 4520 14 Jul, 2014 [facility] [id number] [place] [address] 43822- 9099 Jul, [facility] [id number] [place] [address] 61229- 6947 May, [facility] [id number] [place] [address] 40782- 2995 May, [facility] [address] [address] 4[address] May, [facility] [id number] [place] [address] 84536- 1107 May, [facility] [address] [place] [address] 29524- 5915 Apr, [facility] [id number] [place] [address] 23181- 3839 Apr, [facility] [address] [place] [address] 446077- 1016 Apr, [facility] [id number] [place] [address] 61327- 7891 16 Apr, 2014 [facility] [place] [facility] [address] [id number] [place] [address]- 6700 16 Apr, 2014 [facility] [place] [facility] [address] [id number] [place] [address]- 0830 16 Apr, 2014 [facility] [place] [facility] [address] [id number] [place] [address]- 7423 14 Apr, 2014 [facility] [place] [facility] [address] [id number] [place] [address]- 1716 14 Apr, 2014 [facility] [place] [facility] [address] [id number] [place] [address]- 1392 Apr, [facility] [place] [facility] [address] [id number] [place] [address]- 9581 Apr, [facility] [place] [facility] [address] [id number] [place] [address]- 8547 Jan, [facility] [place] [facility] [address] [id number] [place] [address]- 3557 Jan, [facility] [place] [facility] [address] [id number] [place] [address]- 4660 Nov, [facility] [place] [facility] [address] [id number] [place] [address]- 2839 Nov, [facility] [place] [facility] [address] [id number] [address] 2158 Oct, [facility] [place] [facility] [address] [id number] [address] 8624 Oct, [facility] [place] [facility] [address] [id number] [place] [address]- 2419 Dec, [facility] [place] [facility] [address] [id number] [place] [address]- 4816 Sep, [facility] [place] [facility] [address] [id number] [place] [address]- 7831 Jul, [facility] [place] [facility] [address] [facility] [id number] [place] [address] 8415 Jun, IMMUNIZATIONS No Known Immunizations SOCIAL HISTORY Never Assessed REASON FOR VISIT Cold symptoms, running nose , scratchy troat , sinus congestion , body ache , fever x 2 days -- [facility] PLAN OF CARE Activity Details Follow Up prn Reason: VITAL SIGNS Height 65.5 in 2017-05-06 Weight 159.0 lbs 2017-05-06 Temperature 98.5 degrees Fahrenheit 2017-05-06 Heart Rate 80 bpm 2017-05-06 Respiratory Rate 22 2017-05-06 BMI 26.05 kg/m2 2017-05-06 Blood pressure systolic 136 mmHg 2017-05-06 Blood pressure diastolic 78 mmHg 2017-05-06 MEDICATIONS Medication Instructions Dosage Frequency Start Date End Date Duration Status Lexapro 10 mg Orally Once a day 1 tablet 24h August, 30 day(s) Not-Taking Azithromycin 250 MG Orally Once a day 2 tablets on the first day, then 1 tablet daily for 4 days 24h Apr, Apr, 5 day(s) Active MiraLax 17 gm/dose Orally Once a day 1 cap-ful mixed with 8 oz of water 24h August, Not-Taking Xanax 0.25 MG Orally 2 times a day 1 tablet 12h Sep, Not- Taking Amitriptyline HCl 100 MG Orally Once a day 1 tablet 24h Sep, 30 day(s) Not-Taking Protonix 40 mg Orally Once a day 1 tablet 24h Oct, 30 day(s) Not-Taking ibuprofen 1 tab Active PredniSONE 20 mg Orally Once a day 1 tablet 24h Apr, Apr, 05 days Active Tramadol HCl 50 mg Orally 3 times a day 1 tablet 8h August, Not -Taking Pepcid 20 mg Orally twice a day 1 tablet at bedtime 12h Nov, 30 day(s) Not-Taking RESULTS Name Result Date Reference Range INFLUENZA A & B (IN HOUSE) INFLUENZA A negative INFLUENZA B negative Control positive Lot # [id number] Exp date 06/2019 Xray : Chest 2 View (IN HOUSE) 2017-05-06 PROCEDURES Procedure Date Ordered Result Body Site INFLUENZA ASSAY W/OPTIC May 06, 2017 X-RAY EXAM CHEST 2 VIEWS May 06, 2017 INSTRUCTIONS MEDICATIONS ADMINISTERED No Known Medications MEDICAL (GENERAL) HISTORY Type Description Date Surgical History Appendectomy 09/2014 Surgical History Cholecystectomy 09/2015
--- OUTSIDE RECORDS SUMMARY | 2017-12-30 16:06 | XMS REPORT ---
Author Author ARA CONNOLLY [facility] Address [address] [place] [address] Care Team Providers Care Inspector Welded Parts Name Role Phone ARA CONNOLLY Unavailable PROBLEMS Type Condition ICD9-CM Code UUG37-BQ Code Onset Dates Condition Status SNOMED Code Problem Panic disorder F41.0 Active 164504261 Problem Anxiety F41.9 Active 46661276 Problem Major depressive disorder, recurrent episode, severe F33.2 Active 908897171388 Problem Fatigue, unspecified type R53.83 Active 55565097 Problem Gastroesophageal reflux disease with esophagitis K21.0 Active 892125854 Problem Constipation, unspecified constipation type K59.00 Active 11627905 Problem Low back pain M54.5 Active 596426177 Problem Vaginal discharge N89.8 Active 930287788 Problem Insomnia, unspecified type G47.00 Active 046752048 ALLERGIES No Information SOCIAL HISTORY Never Assessed PLAN OF CARE VITAL SIGNS MEDICATIONS Unknown Medications RESULTS No Results PROCEDURES No Known procedures IMMUNIZATIONS No Known Immunizations MEDICAL (GENERAL) HISTORY Type Description Date Surgical History Appendectomy 09/2014 Surgical History Cholecystectomy 09/2015
--- OUTSIDE RECORDS SUMMARY | 2017-12-30 16:06 | XMS REPORT ---
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 Name Role Phone RODERICK PRITCHETT Unavailable PROBLEMS Type Condition ICD9-CM Code [id number] Code Onset Dates Condition Status SNOMED Code Problem Panic disorder F41.0 Active 490228497 Problem Anxiety F41.9 Active 10314490 Problem Major depressive disorder, recurrent episode, severe F33.2 Active 638542706646 Problem Fatigue, unspecified type R53.83 Active 47232826 Problem Gastroesophageal reflux disease with esophagitis K21.0 Active 088169027 Problem Constipation, unspecified constipation type K59.00 Active 29589041 Problem Low back pain M54.5 Active 565324506 Problem Vaginal discharge N89.8 Active 760387294 Problem Insomnia, unspecified type G47.00 Active 421427440 ALLERGIES Substance Reaction Event Type Date Status Morphine Sulfate rash Drug Allergy August, Active ENCOUNTERS Encounter Location Date Diagnosis [facility] [address] [place] [address] 56341 [address] August, Bronchitis J40 [facility] [id number] [place] [address] 50013- 9738 Apr, Wheezing R06.2 ; Body aches R52 and Acute bronchitis, unspecified organism J20.9 [facility] [address] [place] [address] 21966 -2064 Mar, Other viral agents as the cause of diseases classified elsewhere B97.89 and Acute upper respiratory infection, unspecified J06.9 [facility] [id number] [place] [address] 03774- 5896 August, [facility] [id number] [place] [address] 41181- 3561 August, [place] [address] [place] [address] 00525- 8943 August, Major depressive disorder, recurrent episode, severe F33.2 ; Panic disorder F41.0 ; Insomnia, unspecified type G47.00 ; Gastroesophageal reflux disease with esophagitis K21.0 ; Low back pain M54.5 ; Constipation, unspecified constipation type K59.00 and Fatigue, unspecified type R53.83 [facility] IN [facility] [id number] [place] [address] 41747 -8223 Jul, Sore throat J02.9 and Exposure to Streptococcal pharyngitis Z20.818 [place] [address] [address]- 0525 Feb, [place] [id number] [place] [address] 19517- 1414 Nov, Major depressive disorder, recurrent episode, severe F33.2 ; Insomnia, unspecified type G47.00 ; Gastroesophageal reflux disease with esophagitis K21.0 ; Low back pain M54.5 ; Constipation, unspecified constipation type K59.00 and Vaginal discharge N89.8 [place] [id number] [place] [address] 14490- 1711 Oct, Gastroesophageal reflux disease without esophagitis K21.9 [place] [id number] [place] [address] 30617- 4847 Oct, [place] [address] 97551- 1271 Sep, Major depressive disorder, recurrent episode, severe F33.2 ; Panic disorder F41.0 ; Low back pain M54.5 and Vaginal odor N89.8 [place] [id number] [place] [address] 99741- 8303 Sep, [place] [id number] [place] [address] 37327- 9659 August, Frequent urination R35.0 ; Encounter to establish care Z76.89 ; Abscess L02.91 ; Insomnia, unspecified type G47.00 ; Anxiety F41.9 ; Low back pain M54.5 ; Other chronic pain G89.29 and Constipation, unspecified constipation type K59.00 [facility] [address] [place] [address] 16785- 2993 Apr, Major depressive disorder, recurrent episode, severe F33.2 and Panic disorder F41.0 [facility] [id number] [place] [address] 53200- 2332 Apr, [facility] [id number] [place] [address] 38548- 7354 Apr, Major depressive disorder, recurrent episode, severe F33.2 and Panic disorder F41.0 [facility] [id number] [place] [address] 47552- 8943 14 Jul, 2014 [facility] [id number] [place] [address] 36118- 2764 Jul, [facility] [id number] [place] [address] 32168- 3656 May, [facility] [id number] [place] [address] 73596- 9907 May, [facility] [address] [place] [address] 98373- 7095 May, [facility] [id number] [place] [address] 32298- 8506 May, [facility] [address] [place] [address] 91059- 4136 Apr, [facility] [id number] [place] [address] 762300- 2464 Apr, [facility] [address] [place] [address] 920470- 4486 Apr, [facility] [id number] [place] [address] 14691686- 8210 Apr, [facility] [place] [facility] [address] [id number] [place] [address]- 6853 16 Apr, 2014 [facility] [place] [facility] [address] [id number] [place] [address]- 0336 16 Apr, 2014 [facility] [place] [facility] [address] [id number] [place] [address]- 1109 14 Apr, 2014 [facility] [place] [facility] [address] [id number] [place] [address]- 1239 14 Apr, 2014 [facility] [place] [facility] [address] [id number] [place] [address]- 7798 Apr, [facility] [place] [facility] [address] [id number] [place] [address]- 6830 Apr, [facility] [place] [facility] [address] [id number] [place] [address]- 7438 Jan, [facility] [place] [facility] [address] [id number] [place] [address]- 2371 Jan, [facility] [place] [facility] [address] [id number] [place] [address]- 2769 Nov, [facility] [place] [facility] [address] [id number] [place] [address]- 8050 Nov, [facility] [place] [facility] [address] [id number] [place] [address]- 6619 Oct, [facility] [place] [facility] [address] [id number] [address]- 0477 Oct, [facility] [place] [facility] [address] [id number] [place] [address]- 3681 Dec, [facility] [place] [facility] [address] [id number] [place] [address]- 2696 Sep, [facility] [place] [facility] [address] [id number] [place] [address]- 2515 Jul, [facility] [place] [facility] [address] [facility] [id number] [place] [address]- 6307 Jun, IMMUNIZATIONS No Known Immunizations SOCIAL HISTORY Never Assessed REASON FOR VISIT for 2 days has been coughing, congestion, sneezing. [email or web address] PLAN OF CARE Activity Details Follow Up prn Reason: VITAL SIGNS Height 65.5 in 2017-09-03 Weight 155.6 lbs 2017-09-03 Temperature 99.4 degrees Fahrenheit 2017-09-03 Heart Rate 84 bpm 2017-09-03 Respiratory Rate 20 2017-09-03 BMI 25.50 kg/m2 2017-09-03 Blood pressure systolic 140 mmHg 2017-09-03 Blood pressure diastolic 84 mmHg 2017-09-03 MEDICATIONS Medication Instructions Dosage Frequency Start Date End Date Duration Status Flonase 50 MCG/ACT Nasally Once a day 1 spray in each nostril 24h August, 30 day(s) Active ProAir HFA 108 (90 Base) MCG/ACT Inhalation every 6 hrs 2 puffs as needed 6h August, 7 days Active Amitriptyline HCl 100 MG Orally Once a day 1 tablet 24h Sep, 30 day(s) Not-Taking Tramadol HCl 50 mg Orally 3 times a day 1 tablet 8h August, Not -Taking PredniSONE 20 MG Orally Once a day 2 tablet 24h August, August, 5 days Active Lexapro 10 mg Orally Once a day 1 tablet 24h August, 30 day(s) Not-Taking Protonix 40 mg Orally Once a day 1 tablet 24h Oct, 30 day(s) Not-Taking Xanax 0.25 MG Orally 2 times a day 1 tablet 12h Sep, Not- Taking MiraLax 17 gm/dose Orally Once a day 1 cap-ful mixed with 8 oz of water 24h August, Not-Taking Pepcid 20 mg Orally twice a day 1 tablet at bedtime 12h Nov, 30 day(s) Not-Taking ibuprofen 1 tab Not-Taking RESULTS No Results PROCEDURES No Known procedures INSTRUCTIONS MEDICATIONS ADMINISTERED No Known Medications MEDICAL (GENERAL) HISTORY Type Description Date Surgical History Appendectomy 09/2014 Surgical History Cholecystectomy 09/2015
--- OUTSIDE RECORDS SUMMARY | 2017-12-30 16:06 | XMS REPORT ---
Author Author ARA CONNOLLY Organization [facility] Address [address] [place] [address] Care Team Providers Care Trade Show Coordinator Name Role Phone ARA CONNOLLY Unavailable PROBLEMS Type Condition ICD9-CM Code EFL36-PG Code Onset Dates Condition Status SNOMED Code Problem Panic disorder F41.0 Active 414845365 Problem Anxiety F41.9 Active 16085777 Problem Major depressive disorder, recurrent episode, severe F33.2 Active 117272330997 Problem Fatigue, unspecified type R53.83 Active 14177699 Problem Gastroesophageal reflux disease with esophagitis K21.0 Active 083621865 Problem Constipation, unspecified constipation type K59.00 Active 48452027 Problem Low back pain M54.5 Active 786985919 Problem Vaginal discharge N89.8 Active 608879041 Problem Insomnia, unspecified type G47.00 Active 205072290 ALLERGIES No Information SOCIAL HISTORY Never Assessed PLAN OF CARE VITAL SIGNS MEDICATIONS Medication Instructions Dosage Frequency Start Date End Date Duration Status Lexapro 10 mg Orally Once a day 1 tablet 24h August, 30 day(s) Active RESULTS No Results PROCEDURES No Known procedures IMMUNIZATIONS No Known Immunizations MEDICAL (GENERAL) HISTORY Type Description Date Surgical History Appendectomy 09/2014 Surgical History Cholecystectomy 09/2015
--- OUTSIDE RECORDS SUMMARY | 2017-12-30 16:07 | XMS REPORT ---
Author Author ARA CONNOLLY [facility] Address [address] [place] [address] Care Team Providers Care Manufacturing Leader Name Role Phone AVE CONNOLLYNETTE Unavailable PROBLEMS Type Condition ICD9-CM Code [id number] Code Onset Dates Condition Status SNOMED Code Problem Panic disorder F41.0 Active 608383355 Problem Anxiety F41.9 Active 60128310 Problem Major depressive disorder, recurrent episode, severe F33.2 Active 494941212073 Problem Fatigue, unspecified type R53.83 Active 94082905 Problem Gastroesophageal reflux disease with esophagitis K21.0 Active 573267472 Problem Constipation, unspecified constipation type K59.00 Active 47406076 Problem Low back pain M54.5 Active 500479980 Problem Vaginal discharge N89.8 Active 593232485 Problem Insomnia, unspecified type G47.00 Active 520221986 ALLERGIES Substance Reaction Event Type Date Status Morphine Sulfate rash Drug Allergy August, Active SOCIAL HISTORY Never Assessed PLAN OF CARE Activity Details Follow Up 4 Weeks Reason:fatigue VITAL SIGNS Height 65.5 in 2016-09-03 Weight 169.2 lbs 2016-09-03 Temperature 98.6 degrees Fahrenheit 2016-09-03 Heart Rate 92 bpm 2016-09-03 Respiratory Rate 18 2016-09-03 BMI 27.73 kg/m2 2016-09-03 Blood pressure systolic 122 mmHg 2016-09-03 Blood pressure diastolic 88 mmHg 2016-09-03 MEDICATIONS Medication Instructions Dosage Frequency Start Date End Date Duration Status Tramadol HCl 50 mg Orally 3 times a day 1 tablet 8h August, Active Amitriptyline HCl 100 MG Orally Once a day 1 tablet 24h Sep, 30 day(s) Active Protonix 40 mg Orally Once a day 1 tablet 24h Oct, 30 day(s) Active Xanax 0.25 MG Orally 2 times a day 1 tablet 12h Sep, Active Pepcid 20 mg Orally twice a day 1 tablet at bedtime 12h Nov, 30 day(s) Active RESULTS Name Result Date Reference Range TSH 2016-09-03 TSH 2.110 0.450-4.500 CBC 2016-09-03 WBC 10.3 3.4-10.8 RBC 4.52 3.77-5.28 Hemoglobin 13.7 11.1-15.9 Hematocrit 41.3 34.0-46.6 MCV 91 79-97 MCH 30.3 26.6-33.0 MCHC 33.2 31.5-35.7 RDW 13.0 12.3-15.4 Platelets 367 150-379 Neutrophils 56 Lymphs 32 Monocytes 9 Eos 3 Basos 0 Neutrophils (Absolute) 5.7 1.4-7.0 Lymphs (Absolute) 3.3 0.7-3.1 Monocytes(Absolute) 0.9 0.1-0.9 Eos (Absolute) 0.3 0.0-0.4 Baso (Absolute) 0.0 0.0-0.2 Immature Granulocytes 0 Immature Grans (Abs) 0.0 0.0-0.1 CMP 2016-09-03 Glucose, Serum 87 65-99 BUN 8 6-20 Creatinine, Serum 0.61 0.57-1.00 eGFR If NonAfricn Am 117 >59 eGFR If Africn Am 135 >59 BUN/Creatinine Ratio 13 9-23 Sodium, Serum 140 134-144 Potassium, Serum 4.5 3.5-5.2 Chloride, Serum 101 96-106 Carbon Dioxide, Total 25 18-29 Calcium, Serum 8.9 8.7-10.2 Protein, Total, Serum 6.6 6.0-8.5 Albumin, Serum 4.3 3.5-5.5 Globulin, Total 2.3 1.5-4.5 A/G Ratio 1.9 1.2-2.2 Bilirubin, Total 0.5 0.0-1.2 Alkaline Phosphatase, S 76 39-117 AST (SGOT) 14 0-40 ALT (SGPT) 13 0-32 PROCEDURES Procedure Date Ordered Result Body Site COMPLETE CBC W/AUTO DIFF WBC September 03, 2016 COMPREHEN METABOLIC PANEL September 03, 2016 ASSAY THYROID STIM HORMONE September 03, 2016 VENIPUNCT, ROUTINE* September 03, 2016 IMMUNIZATIONS No Known Immunizations MEDICAL (GENERAL) HISTORY Type Description Date Surgical History Appendectomy 09/2014 Surgical History Cholecystectomy 09/2015
--- OUTSIDE RECORDS SUMMARY | 2017-12-30 16:07 | XMS REPORT ---
Author Author RODERICK PRITCHETT Organization [facility] Address [address] [place] [address] Care Team Providers Care Plastic Frame Inserter Name Role Phone RODERICK PRITCHETT Unavailable PROBLEMS Type Condition ICD9-CM Code NEA37-PF Code Onset Dates Condition Status SNOMED Code Problem Panic disorder F41.0 Active 624499537 Problem Anxiety F41.9 Active 68669533 Problem Major depressive disorder, recurrent episode, severe F33.2 Active 379097253490 Problem Fatigue, unspecified type R53.83 Active 05730678 Problem Gastroesophageal reflux disease with esophagitis K21.0 Active 571408776 Problem Constipation, unspecified constipation type K59.00 Active 20094520 Problem Low back pain M54.5 Active 900909297 Problem Vaginal discharge N89.8 Active 433737059 Problem Insomnia, unspecified type G47.00 Active 309824342 ALLERGIES Substance Reaction Event Type Date Status Morphine Sulfate rash Drug Allergy Mar, Active ENCOUNTERS Encounter Location Date Diagnosis [facility] [id number] [place] [address] August, Bronchitis J40 [facility] [id number] [place] [address] 57958- 8769 Apr, Wheezing R06.2 ; Body aches R52 and Acute bronchitis, unspecified organism J20.9 [facility] [id number] [place] [address] Mar, Other viral agents as the cause of diseases classified elsewhere B97.89 and Acute upper respiratory infection, unspecified J06.9 [facility] [id number] [place] [address] 89874[address] 9748 August, [facility] [id number] [place] [address] 04570- 6288 August, [place] [id number] [place] [address] 06217- 2259 August, Major depressive disorder, recurrent episode, severe F33.2 ; Panic disorder F41.0 ; Insomnia, unspecified type G47.00 ; Gastroesophageal reflux disease with esophagitis K21.0 ; Low back pain M54.5 ; Constipation, unspecified constipation type K59.00 and Fatigue, unspecified type R53.83 [facility] [id number] [place] [address]231 [address]1655 Jul, Sore throat J02.9 and Exposure to Streptococcal pharyngitis Z20.818 [place] [id number] [place] [address] 79448- 3895 Feb, [place] [id number] [place] [address] 39490- 8117 Nov, Major depressive disorder, recurrent episode, severe F33.2 ; Insomnia, unspecified type G47.00 ; Gastroesophageal reflux disease with esophagitis K21.0 ; Low back pain M54.5 ; Constipation, unspecified constipation type K59.00 and Vaginal discharge N89.8 [place] [id number] [place] [address] 42249- 5709 Oct, Gastroesophageal reflux disease without esophagitis K21.9 [place] [id number] [place] [address] 89690- 9266 Oct, [place] [id number] [place] [address] 87494- 2623 Sep, Major depressive disorder, recurrent episode, severe F33.2 ; Panic disorder F41.0 ; Low back pain M54.5 and Vaginal odor N89.8 [place] [id number] [place] [address] 76588- 6833 Sep, [place] [id number] [place] [address] 25991- 1171 August, Frequent urination R35.0 ; Encounter to establish care Z76.89 ; Abscess L02.91 ; Insomnia, unspecified type G47.00 ; Anxiety F41.9 ; Low back pain M54.5 ; Other chronic pain G89.29 and Constipation, unspecified constipation type K59.00 [facility] [id number] [place] [address] 53803- 0798 Apr, Major depressive disorder, recurrent episode, severe F33.2 and Panic disorder F41.0 [facility] [id number] [place] [address] 61503- 8106 Apr, [facility] [id number] [place] [address] 36537- 3611 Apr, Major depressive disorder, recurrent episode, severe F33.2 and Panic disorder F41.0 [facility] [id number] [place] [address] 67179- 8082 Jul, [facility] [id number] [place] [address] 59990- 1013 Jul, [facility] [id number] [place] [address] 78741- 4311 May, [facility] [id number] [place] [address] 89085- 4037 May, [facility] [id number] [place] [address] 11997- 8572 May, [facility] [id number] [place] [address] 45766- 4947 May, [facility] [id number] [place] [address] 33436- 0689 Apr, [facility] [id number] [place] [address] 38446- 4215 Apr, [facility] [id number] [place] [address] 83620- 4183 Apr, [facility] [id number] [place] [address] 65129- 4269 16 Apr, 2014 [facility] [place] [facility] [address] [id number] [place] [address] 9725 16 Apr, 2014 [facility] [place] [facility] [address] [id number] [place] [address]- 4365 16 Apr, 2014 [facility] [place] [facility] [address] [id number] [place] [address]- 1477 14 Apr, 2014 [facility] [place] [facility] [address] [id number] [place] [address]- [address]37 14 Apr, 2014 [facility] [place] [facility] [address] [id number] [place] [address]- 1454 Apr, [facility] [place] [facility] [address] [id number] [place] [address]- 2273 Apr, [facility] [place] [facility] [address] [id number] [place] [address] Jan, [facility] [place] [facility] [address] [id number], [place] [address] Jan, [facility] [place] [facility] [address] [id number] [place] [address]- 7043 Nov, [facility] [place] [facility] [address] [id number] [place] [address]- 6176 Nov, [facility] [place] [facility] [address] [id number], [place] [address] Oct, [facility] [place] [facility] [address] [id number], [place] [address] Oct, [facility] [place] [facility] [address] [id number] [place] [address]- 7687 Dec, [facility] [place] [facility] [address] [id number], [place] [address] Sep, [facility] [place] [facility] [address] [id number] [place] [address] 3[address] Jul, [facility] [place] [facility] [address] [facility] [id number] [place] [address] Jun, IMMUNIZATIONS No Known Immunizations SOCIAL HISTORY Never Assessed REASON FOR VISIT cough, head and chest congestion. been sick for 4 days. [email or web address] PLAN OF CARE Activity Details Follow Up prn Reason: VITAL SIGNS Height 65.5 in 2017-04-02 Weight 159.6 lbs 2017-04-02 Temperature 97.8 degrees Fahrenheit 2017-04-02 Heart Rate 88 bpm 2017-04-02 Respiratory Rate 20 2017-04-02 BMI 26.15 kg/m2 2017-04-02 Blood pressure systolic 124 mmHg 2017-04-02 Blood pressure diastolic 78 mmHg 2017-04-02 MEDICATIONS Medication Instructions Dosage Frequency Start Date End Date Duration Status Tramadol HCl 50 mg Orally 3 times a day 1 tablet 8h August, Active Pepcid 20 mg Orally twice a day 1 tablet at bedtime 12h Nov, 30 day(s) Active Lexapro 10 mg Orally Once a day 1 tablet 24h August, 30 day(s) Not-Taking Amitriptyline HCl 100 MG Orally Once a day 1 tablet 24h Sep, 30 day(s) Not-Taking MiraLax 17 gm/dose Orally Once a day 1 cap-ful mixed with 8 oz of water 24h August, Not-Taking Protonix 40 mg Orally Once a day 1 tablet 24h Oct, 30 day(s) Active Xanax 0.25 MG Orally 2 times a day 1 tablet 12h Sep, Active RESULTS No Results PROCEDURES No Known procedures INSTRUCTIONS MEDICATIONS ADMINISTERED No Known Medications MEDICAL (GENERAL) HISTORY Type Description Date Surgical History Appendectomy 09/2014 Surgical History Cholecystectomy 09/2015
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
[2017-12-30] MEDS ORDERED: ACETAMINOPHEN 500 MG TAB (TYLENOL) PO ONE (16:15)
[2017-12-30] MEDS ORDERED: PROCHLORPERAZINE 10 MG/2ML INJ (COMPAZINE) IV ONE (16:15)
[2017-12-30] MEDS ORDERED: ONDANSETRON 4 MG/2 ML (SDV) Z0FRAN IVP ONE (16:15)
[2017-12-30] MEDS ORDERED: KETOROLAC 30 MG/ML VIAL IVP ONE (16:15)
--- NOTE | 2017-12-30 16:20 | ED Headache ---
General Stated Complaint: LETHARGIC, CHEST TIGHTNESS, BP HIGH Source: patient Exam Limitations: no limitations History of Present Illness Date Seen by Provider: Dec 30, 2017 Time Seen by Provider: 16:06 Initial Comments The patient presents to the ER by private conveyance with chief complaint she's having a headache and high blood pressure this weekend since Saturday. She's taken some ibuprofen but not much else. She does have a history of migraines in the past. She's also having a history of high blood pressure and couple years ago she was on lisinopril for about a year but then they took her off it because it until she needed anymore. She has an appointment to see her doctor about this on 09 January, 10 days from today. She just has malaise and tiredness weakness fatigue, headache and occasional nausea without vomiting. No fevers chills, shortness of breath chest pain, belly pain or other focal symptoms. She says her blood pressure has been as high as 170s over 113. Allergies and Home Medications Allergies Coded Allergies: morphine (Verified Allergy, Unknown, 10/04/15) Home Medications Ketorolac Tromethamine 10 Mg Tablet, 10 MG PO Q6H Prescribed by: MARLON SHI on 12/11/17 0529 Ondansetron 4 Mg Tab.rapdis, 4 MG PO Q4H Prescribed by: MARLON SHI on 12/11/17 0529 Patient Home Medication List Home Medication List Reviewed: Yes Review of Systems Review of Systems Constitutional: No chills, No diaphoresis, No fever; malaise; No weakness Eyes: Denies Blindness, Denies Blurred Vision Ears, Nose, Mouth, Throat: denies ear pain, denies ear discharge Respiratory: No cough, No short of breath, No wheezing Cardiovascular: No chest pain, No edema, No Hx of Intervention, No palpitations Gastrointestinal: No abdominal pain, No constipation, No diarrhea; nausea; No vomiting Genitourinary: No discharge, No dysuria Musculoskeletal: No back pain, No joint pain Past Gmvqgjc-Perjhs-Ggwwfm Hx Patient Social History Alcohol Use: Denies Use Recreational Drug Use: No Smoking Status: Former Smoker Type Used: Cigarettes 2nd Hand Smoke Exposure: Yes Recent Foreign Travel: No Contact w/Someone Who Travel: No Recent Hopitalizations: No Immunizations Up To Date Tetanus Booster (TDap): Less than 5yrs PED Vaccines UTD: Yes Date of Influenza Vaccine: Jan 27, 2014 Seasonal Allergies Seasonal Allergies: No Past Medical History Surgeries: Yes (D&C X2; HYST/OVARIES INTACT) Appendectomy, Section, Gallbladder, Hysterectomy Respiratory: No Currently Using CPAP: No Currently Using BIPAP: No Cardiac: No Neurological: No 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 Disorders: No Female 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 Sexually Transmitted Disease: No HIV/AIDS: No Gastrointestinal: Yes Gall Bladder Disease Musculoskeletal: Yes Chronic Back Pain Endocrine: No Loss of Vision: Denies Hearing Impairment: Denies Cancer: No Psychosocial: No Integumentary: No Blood Disorders: No Adverse Reaction/Blood Tranf: No Family Medical History Diabetes mellitus FHx: ovarian cancer No Pertinent Family Hx Physical Exam Vital Signs Vital Signs - First Documented 12/30/17 16:09 Temp 97.7 Pulse 101 Resp 20 B/P (MAP) 173/99 (123) Pulse Ox 97 O2 Delivery Room Air Capillary Refill : Height, Weight, BMI Height: 5'5.00" Weight: 160lbs. 0oz. [id number]; 27.0 BMI Method:Stated General Appearance: WD/WN, no apparent distress HEENT: PERRL/EOMI, normal ENT inspection, TMs normal, pharynx normal Neck: non-tender, normal inspection Cardiovascular: normal peripheral pulses, regular rate, rhythm, no edema, no murmur, tachycardia Respiratory: chest non-tender, lungs clear, normal breath sounds, no respiratory distress, no accessory muscle use Gastrointestinal: normal bowel sounds, non tender, soft Extremities: normal inspection, normal capillary refill Psychiatric: alert, oriented x 3 Crainal Nerves: normal hearing, normal speech, PERRL Coordination/Gait: normal gait Motor/Sensory: no motor deficit, no sensory deficit, no pronator drift Skin: normal color, warm/dry Progress/Results/Core Measures Results/Orders Lab Results Laboratory Tests Test 12/30/17 16:10 12/30/17 16:32 Range/Units White Blood Count 12.4 H 4.3-11.0 10^3/uL Red Blood Count 4.62 4.35-5.85 10^6/uL Hemoglobin 14.6 11.5-16.0 G/DL Hematocrit 40 35-52 % Mean Corpuscular Volume 87 80-99 FL Mean Corpuscular Hemoglobin 32 25-34 PG Mean Corpuscular Hemoglobin Concent 36 32-36 G/DL Red Cell Distribution Width 12.1 10.0-14.5 % Platelet Count 341 130-400 10^3/uL Mean Platelet Volume 9.2 7.4-10.4 FL Neutrophils (%) (Auto) 64 42-75 % Lymphocytes (%) (Auto) 26 12-44 % Monocytes (%) (Auto) 8 0-12 % Eosinophils (%) (Auto) 2 0-10 % Basophils (%) (Auto) 0 0-10 % Neutrophils # (Auto) 8.0 H 1.8-7.8 X 10^3 Lymphocytes # (Auto) 3.2 1.0-4.0 X 10^3 Monocytes # (Auto) 1.0 0.0-1.0 X 10^3 Eosinophils # (Auto) 0.3 0.0-0.3 10^3/uL Basophils # (Auto) 0.0 0.0-0.1 10^3/uL Sodium Level 137 135-145 MMOL/L Potassium Level 3.5 L 3.6-5.0 MMOL/L Chloride Level 102 98-107 MMOL/L Carbon Dioxide Level 24 21-32 MMOL/L Anion Gap 11 5-14 MMOL/L Blood Urea Nitrogen 9 7-18 MG/DL Creatinine 0.63 0.60-1.30 MG/DL Estimat Glomerular Filtration Rate > 60 BUN/Creatinine Ratio 14 Glucose Level 125 H 70-105 MG/DL Calcium Level 9.3 8.5-10.1 MG/DL Corrected Calcium 9.1 8.5-10.1 MG/DL Magnesium Level 2.4 1.8-2.4 MG/DL Total Bilirubin 0.4 0.1-1.0 MG/DL Aspartate Amino Transf (AST/SGOT) 10 5-34 U/L Alanine Aminotransferase (ALT/SGPT) 12 0-55 U/L Alkaline Phosphatase 77 40-136 U/L Troponin I < 0.30 <0.30 NG/ML C-Reactive Protein High Sensitivity 0.20 0.00-0.50 MG/DL Total Protein 6.9 6.4-8.2 GM/DL Albumin 4.2 3.2-4.5 GM/DL Thyroid Stimulating Hormone (TSH) 1.25 0.35-4.94 UIU/ML Urine Color YELLOW Urine Clarity SLIGHTLY CLOUDY Urine pH 7 5-9 Urine Specific [place] 1.015 L 1.016-1.022 Urine Protein NEGATIVE NEGATIVE Urine Glucose (UA) NEGATIVE NEGATIVE Urine Ketones NEGATIVE NEGATIVE Urine Nitrite NEGATIVE NEGATIVE Urine Bilirubin NEGATIVE NEGATIVE Urine Urobilinogen 1 NORMAL MG/DL Urine Leukocyte Esterase NEGATIVE NEGATIVE Urine RBC (Auto) NEGATIVE NEGATIVE Urine RBC NONE /HPF Urine WBC NONE /HPF Urine Squamous Epithelial Cells 5-10 /HPF Urine Renal Epithelial Cells NONE /HPF Urine Crystals PRESENT H /LPF Urine Amorphous Sediment LARGE JUANITO URATES H /LPF Urine Bacteria FEW H /HPF Urine Casts NONE /LPF Urine Mucus NEGATIVE /LPF Urine Culture Indicated NO Urine Opiates Screen NEGATIVE NEGATIVE Urine Oxycodone Screen NEGATIVE NEGATIVE Urine Methadone Screen NEGATIVE NEGATIVE Urine Propoxyphene Screen NEGATIVE NEGATIVE Urine Barbiturates Screen NEGATIVE NEGATIVE Ur Tricyclic Antidepressants Screen NEGATIVE NEGATIVE Urine Phencyclidine Screen NEGATIVE NEGATIVE Urine Amphetamines Screen NEGATIVE NEGATIVE Urine Methamphetamines Screen NEGATIVE NEGATIVE Urine Benzodiazepines Screen NEGATIVE NEGATIVE Urine Cocaine Screen NEGATIVE NEGATIVE Urine Cannabinoids Screen NEGATIVE NEGATIVE My Orders Orders - [employer]KI SALES Cbc With Automated Diff (12/30/17 16:12) Comprehensive Metabolic Panel (12/30/17 16:12) Hs C Reactive Protein (12/30/17 16:12) Drug Screen Stat (Urine) (12/30/17 16:12) Magnesium (12/30/17 16:12) Thyroid Stimulating Hormone (12/30/17 16:12) Troponin I (12/30/17 16:12) Ua Culture If Indicated (12/30/17 16:12) Saline Lock/Iv-Start (12/30/17 16:12) Acetaminophen Tablet (Tylenol Tablet) (12/30/17 16:15) Ondansetron Injection (Zofran Injectio (12/30/17 16:15) Prochlorperazine Injection (Compazine In (12/30/17 16:15) Ketorolac Injection (Toradol Injection) (12/30/17 16:15) Medications Given in ED Current Medications Medications Dose Ordered Sig/Lance Route Start Time Stop Time Status Last Admin Dose Admin Acetaminophen 1,000 mg ONCE ONCE PO 12/30/17 16:15 12/30/17 16:16 DC 12/30/17 16:31 1,000 MG Ketorolac Tromethamine 10 mg ONCE ONCE IVP 12/30/17 16:15 12/30/17 16:16 DC 12/30/17 16:31 10 MG Ondansetron HCl 4 mg ONCE ONCE IVP 12/30/17 16:15 12/30/17 16:16 DC 12/30/17 16:31 4 MG Prochlorperazine Edisylate 10 mg ONCE ONCE IV 12/30/17 16:15 12/30/17 16:16 DC 12/30/17 16:31 10 MG Vital Signs/I&O 12/30/17 16:09 Temp 97.7 Pulse 101 Resp 20 B/P (MAP) 173/99 (123) Pulse Ox 97 O2 Delivery Room Air Progress Progress Note #1: Time: 16:20 Progress Note A pretty nonspecific set of complaints. We'll check some basic labs. No clinical evidence of a upper respiratory tract infection. No red flag headache signs either. Seems like she is having a migraine headache although she denies this. Her headache could be causing the high blood pressure. It's also possible high blood pressures causing her headaches but she has no focal neural deficits. If the labs show any evidence of infection or other worrisome symptoms and I will also give her some Compazine, Zofran, Tylenol and Toradol trying get her headache under better control. By the time the labs back hopefully her headache will improve and her blood pressure will follow however if it does not then I will be happy to start her on some lisinopril again and send her to her outpatient follow-up appointment. Progress Note #2: Time: 17:11 Progress Note The patient's blood pressure has improved down to the 140s systolic and her headache has improved. Probably her headache was driving her blood pressure. We gave her some nausea medicines that took away her nausea and we'll encourage her to take some Benadryl go home get some sleep. Follow-up at the scheduled PCP appointment Initial ECG Impression Date: Dec 30, 2017 Initial ECG Impression Time: 16:11 Initial ECG Rate: 103 Initial ECG Rhythm: S.Tach Initial ECG Intervals: Normal Initial ECG Impression: Normal, Nonspecific Changes Initial ECG Comparisson: No Previous ECG Available Comment No ST elevation or depression. Sinus tachycardia Departure Impression Primary Impression: Headache Qualified Codes: G44.209 - Tension-type headache, unspecified, not intractable Additional Impression: Hypertension Qualified Codes: I10 - Essential (primary) hypertension Disposition: HOME, SELF-CARE Condition: Improved Departure-Patient Inst. Decision time for Depature: 17:12 Referrals: [facility] (PCP/Family) Primary Care Physician Patient Instructions: Controlling Your Blood Pressure Through Lifestyle Add. Discharge Instructions: Use Tylenol 1000 g every 8 hours in addition to ibuprofen 800 mg every 8 hours as needed for headache. Get some sleep. If you need to you can use 25 mg of Benadryl to help you get some sleep. Work/School Note: Work Release Form Date Seen in the Emergency Department: Dec 30, 2017 Return to Work: Jan 01, 2018 Restrictions: No Restrictions Copy Copies To 1: KHRIS SCHUMACHER TITUS J Dec 30, 2017 16:20
[2017-12-30 16:24] LABS: BASOPHILS % (AUTO) 0 % (0-10); EOSINOPHILS # (AUTO) 0.3 10^3/uL (0.0-0.3); EOSINOPHILS % (AUTO) 2 % (0-10); HEMATOCRIT 40 % (35-52); HEMOGLOBIN 14.6 G/DL (11.5-16.0); LYMPHOCYTES # (AUTO) 3.2 X 10^3 (1.0-4.0); LYMPHOCYTES % (AUTO) 26 % (12-44); MEAN CORPUSCULAR HEMOGLOBIN 32 PG (25-34); MEAN CORPUSCULAR HGB CONC 36 G/DL (32-36); MEAN CORPUSCULAR VOLUME 87 FL (80-99); MEAN PLATELET VOLUME 9.2 FL (7.4-10.4); MONOCYTES % (AUTO) 8 % (0-12); NEUTROPHILS % (AUTO) 64 % (42-75); PLATELET COUNT 341 10^3/uL (130-400); RED BLOOD COUNT 4.62 10^6/uL (4.35-5.85); RED CELL DISTRIBUTION WIDTH 12.1 % (10.0-14.5); WHITE BLOOD COUNT 12.4 10^3/uL (4.3-11.0)
[2017-12-30 16:38] LABS: ALANINE AMINOTRANSFERASE 12 U/L (0-55); ALBUMIN 4.2 GM/DL (3.2-4.5); ALKALINE PHOSPHATASE 77 U/L (40-136); BILIRUBIN,TOTAL 0.4 MG/DL (0.1-1.0); BUN/CREATININE RATIO 14; CALCIUM 9.3 MG/DL (8.5-10.1); CARBON DIOXIDE 24 MMOL/L (21-32); CHLORIDE 102 MMOL/L (98-107); CREATININE SERUM 0.63 MG/DL (0.60-1.30); GFR ESTIMATED > 60; GLUCOSE 125 MG/DL (70-105); MAGNESIUM 2.4 MG/DL (1.8-2.4); POTASSIUM 3.5 MMOL/L (3.6-5.0); SODIUM 137 MMOL/L (135-145); TOTAL PROTEIN 6.9 GM/DL (6.4-8.2)
[2017-12-30 16:40] LABS: BILIRUBIN,URINE NEGATIVE (NEGATIVE); CLARITY,URINE SLIGHTLY CLOUDY; COLOR,URINE YELLOW; GLUCOSE, URINE (UA) NEGATIVE (NEGATIVE); KETONES,URINE NEGATIVE (NEGATIVE); LEUKOCYTE ESTERASE ,URINE NEGATIVE (NEGATIVE); NITRITE,URINE NEGATIVE (NEGATIVE); PH,URINE 7 (5-9); PROTEIN,URINE NEGATIVE (NEGATIVE); UROBILINOGEN,URINE 1 MG/DL (NORMAL)
[2017-12-30 16:51] LABS: AMORPHOUS SEDIMENT,UR LARGE AMOR URATES /LPF; BACTERIA,URINE FEW /HPF
[2017-12-30 16:52] LABS: AMPHETAMINE SCREEN, URINE NEGATIVE (NEGATIVE); BARBITURATE SCREEN URINE NEGATIVE (NEGATIVE); BENZODIAZEPINES SCREEN URINE NEGATIVE (NEGATIVE); CANNABINOID SCREEN, URINE NEGATIVE (NEGATIVE); COCAINE SCREEN URINE NEGATIVE (NEGATIVE); METHADONE STAT NEGATIVE (NEGATIVE); METHAMPHETAMINE SCREEN URINE S NEGATIVE (NEGATIVE); OPIATE SCREEN URINE NEGATIVE (NEGATIVE); OXYCODONE STAT NEGATIVE (NEGATIVE); PROPOXYPHENE STAT NEGATIVE (NEGATIVE); TRICYCLIC ANTIDEPRESSANTS SCRE NEGATIVE (NEGATIVE)
[2017-12-30 17:25] VITALS: BP 144/98
== END 2017-12-30 17:25 | disposition home or self-care (01) ==
LOC: EDUNIT# 16:02 → ER 16:03
DX: R51 Headache (principal); I10 Essential (primary) hypertension; Z88.5 Allergy status to narcotic agent; Z87.891 Personal history of nicotine dependence; Z90.49 Acquired absence of other specified parts of digestive tract; Z90.710 Acquired absence of both cervix and uterus; Z98.890 Other specified postprocedural states; Z80.8 Family history of malignant neoplasm of other organs or systems
CPT/HCPCS: 36415; 80053; 80306; 81000; 83735; 84443; 84484; 85025; 86141; 93005; 96374; 96375

== ENCOUNTER → 2018-07-03 | Outpatient (CLI) | payer OTHER ==
[~2018-07-03] MED LIST changes: -HYDR-3454 PO; +HYDR-3455 PO; +LISI10TA2 PO; +METO-395 PO; +METR-145 PO; -METR500T21 PO; +MULT-141 PO
--- NOTE | 2018-07-03 09:06 | Diagnostic Imaging Report ---
PROCEDURE: CT abdomen and pelvis with contrast. TECHNIQUE: Multiple contiguous axial images were obtained through the abdomen and pelvis after administration of intravenous contrast. INDICATION: Constipation and lower abdominal pain. COMPARISON: Correlation is made with prior CT from 12/11/2017. FINDINGS: The lung bases are clear. No discrete liver mass is identified. The gallbladder is not visualized and it may be surgically absent. No biliary duct dilatation is seen. The pancreas and spleen are unremarkable. No adrenal mass is identified. Kidneys are unremarkable. Aorta is nonaneurysmal. The small and large bowel loops are normal in caliber. No obstruction is seen. There is no ascites. Small right ovarian cyst is noted measuring 19 mm. Bladder is unremarkable. No inflammatory process is seen. IMPRESSION: Stable CT of the abdomen and pelvis when compared with exam from 12/11/2017. No acute abnormality is detected. Dictated by: Dictated on workstation # [id number]
== END ==
LOC: RAD 07:14
PROVIDERS: ATTEND Physician Assistant
DX: K59.09 Other constipation (principal)
CPT/HCPCS: 74177

== ENCOUNTER 2018-07-09 05:39 | Outpatient (CLI) | payer OTHER ==
[~2018-07-09] VITALS: Ht 165.1 cm; Wt 67.6 kg
[~2018-07-09 05:39] MED LIST changes: -LISI10TA2 PO; -METO-395 PO; -MULT-141 PO
[2018-07-09] MEDS ORDERED: MULT-141 PO (13:37)
[2018-07-09] MEDS ORDERED: LISI10TA2 PO (13:37)
[2018-07-09] MEDS ORDERED: METO-395 PO (13:37)
== END 2018-07-09 13:41 | disposition home or self-care (01) ==
LOC: PREOP 05:39
PROVIDERS: ATTEND Surgery
DX: Z01.818 Encounter for other preprocedural examination (principal)

== ENCOUNTER 2018-07-15 09:36 | Day surgery (SDC) | payer OTHER ==
[~2018-07-15] VITALS: Ht 165.1 cm; Wt 67.6 kg
[~2018-07-15 09:36] MED LIST changes: +LISI10TA2 PO; +METO-395 PO; +MULT-141 PO
[2018-07-15] MEDS ORDERED: LACTATED RINGERS 1,000 ML IV ONE (09:48)
[2018-07-15] MEDS ORDERED: MIDAZOLAM 2 MG/2 ML (VERSED) VIAL ONE (09:52)
[2018-07-15] MEDS ORDERED: PROPOFOL INJECTION 50 ML IV ONE (09:52)
--- NOTE | 2018-07-15 09:57 | Progress Note-Pre Operative ---
Pre-Operative Progress Note H&P Reviewed The H&P was reviewed, patient examined and no changes noted. Date Seen by Provider: Jul 15, 2018 Time Seen by Provider: 09:56 Date H&P Reviewed: Jul 15, 2018 Time H&P Reviewed: 09:56 Pre-Operative Diagnosis: dysphagia, change in bowel habits RAKEL PINEDA DO Jul 15, 2018 09:57
[2018-07-15] MEDS ORDERED: HURRICAINE EXT TUBE (BENZOCAINE) ONE (10:02)
[2018-07-15] MEDS ORDERED: LACTATED RINGERS 1,000 ML IV STA (10:02)
[2018-07-15 10:10] VITALS: BP 127/90
[2018-07-15] MEDS ORDERED: HURRICAINE EXT TUBE (BENZOCAINE) XX PRN (10:15)
--- NOTE | 2018-07-15 10:41 | Progress Note-Post Operative ---
Post-Operative Progess Note Surgeon (s)/Breastfeeding Program Coordinator (s) Surgeon RAKEL PINEDA DO Breastfeeding Program Coordinator: NA Pre-Operative Diagnosis dysphagia, change in bowel habits Post-Operative Diagnosis Hiatal hernia, normal colon Procedure & Operative Findings Date of Procedure 07/15/18 Procedure Performed/Findings EGD w/ biopsies and colonoscopy Anesthesia Type per CULTURAL ANTHROPOLOGY PROFESSOR Estimated Blood Loss Estimated blood loss (mL): Minimal Specimens/Packing Specimens Removed Biopsy of gastric antrum and GE junction RAKEL PINEDA DO Jul 15, 2018 10:41
--- NOTE | 2018-07-15 10:45 | Discharge Inst-Simple/Standard ---
Discharge Inst-Standard Patient Instructions/Follow Up Plan of Care/Instructions/FU: 2 weeks follow up with Dr. Durand. Activity as Tolerated: Yes Discharge Diet: No Restrictions RAKEL DURAND DO Jul 15, 2018 10:45
--- NOTE | 2018-07-15 10:50 | Anesthesia-General Post-Op ---
MAC Patient Condition Mental Status/LOC: Same as Preop Cardiovascular: Satisfactory Nausea/Vomiting: Absent Respiratory: Satisfactory Pain: Controlled Complications: Absent Post Op Complications Complications None Follow Up Care/Instructions Patient Instructions None needed. Anesthesiology Discharge Order Discharge Order Patient is doing well, no complaints, stable vital signs, no apparent adverse anesthesia problems. SAGRARIO CARLSON DO Jul 15, 2018 10:50
[2018-07-15 11:05] VITALS: BP 119/69
[2018-07-15 11:35] VITALS: BP 127/84
[2018-07-15 11:45] VITALS: BP 127/84
--- NOTE | 2018-07-15 17:57 | OPERATIVE REPORT ---
DATE OF SERVICE: 07/15/2018 PREOPERATIVE DIAGNOSES: Dysphagia, change in bowel habits. POSTOPERATIVE DIAGNOSES: Hiatal hernia, normal colon. PROCEDURE: EGD with biopsies and colonoscopy. SURGEON: Rakel Durand DO ANESTHESIA: Per WEBSITE PROJECT MANAGER. ESTIMATED BLOOD LOSS: None. COMPLICATIONS: None. INDICATIONS: The patient is a 37-year-old female with dysphagia and change in bowel habits. She understands risks and benefits of procedures and wished to proceed with procedure. Consent was signed on the chart. DESCRIPTION OF PROCEDURE: The patient was taken to the endoscopy suite, placed in left lateral recumbent position. Timeout was performed. Scope was inserted into the mouth, down the esophagus, stomach and into the duodenum without difficulty. There were no polyps, masses or ulcerations within the duodenum. Scope was then slowly retracted back into the stomach where it was further insufflated. Slight erythematous changes in the antrum. Biopsy was obtained. Scope was retroflexed just noting a small hiatal hernia. No other pathology noted. Scope was returned to its normal position, slowly withdrawn to the distal esophagus where biopsy was performed of the GE junction. Scope was then slowly retracted back to completely remove noting no other pathology. Digital rectal exam was performed. There were no palpable polyps, masses or ulcerations. Scope was inserted into the rectum, advanced all the way to the cecum with minimal difficulty. Prep was adequate. Scope was then inserted through the ileocecal valve and had normal appearance of the terminal ileum. Scope was retracted back to the cecum, which had normal appearance. No polyps, masses or ulcerations. Scope was continuously retracted back. No polyps, masses or ulceration within the ascending, transverse, descending and sigmoid colon. Once in the rectum, scope was retroflexed noting no other pathology. Scope was returned to its normal position, slowly withdrawn until completely removed. The patient tolerated procedure well without any complications. She was taken to recovery room in stable condition. RECOMMENDATIONS: The patient will follow up in the office in 2 weeks to discuss pathology results. She routine screening guidelines. Any issues before that will be seen at that time. Job ID: [id number] DocumentID: [id number] Dictated Date: 07/15/2018 11:26:04 Business Development Professional Date: 07/15/2018 17:56:37 Dictated By: RAKEL DURAND DO
== END 2018-07-15 11:45 | disposition home or self-care (01) ==
LOC: ENDO 09:36
PROVIDERS: ATTEND Surgery
DX: K59.00 Constipation, unspecified (principal); K21.9 Gastro-esophageal reflux disease without esophagitis; K44.9 Diaphragmatic hernia without obstruction or gangrene; I10 Essential (primary) hypertension; F17.210 Nicotine dependence, cigarettes, uncomplicated; Z79.899 Other long term (current) drug therapy

== ENCOUNTER 2019-03-15 15:49 | Emergency (ER) | payer OTHER ==
[~2019-03-15] VITALS: Ht 165 cm; Wt 69.0 kg
--- NOTE | 2019-03-15 16:13 | ED Headache ---
General Chief Complaint: Head/Cervical Problems Stated Complaint: HX BRAIN SURGERY/PAIN IN BACK OF HEAD Nursing Triage Note: Patient reports headache x 4 hours Nursing Sepsis Screen: No Definite Risk Source: patient Exam Limitations: no limitations History of Present Illness Date Seen by Provider: Mar 15, 2019 Time Seen by Provider: 15:54 Initial Comments The patient arrives the ER by private conveyance with chief complaint that she has a headache in her left occiput starting about 4 hours ago that is lasting longer than any of her previous headaches. She has a history of migraine headaches. She takes. Vraylar and metoprolol for blood pressure. 3 months ago she had a meningioma removed at [facility] as it was symptomatic. There is another one that they're just watching and the last time they imaged it was about 3 months ago. She's not having any fevers or chills but she did have some tenderness in her left ear for the past day or so. She's having no drainage or discharge. No loose or painful teeth. No difficulty swallowing eating or breathing. She's not having any nausea or vomiting. She did take ibuprofen couple hours ago without success. She is very anxious about her headache. Historically she's had a C- section, hysterectomy, cholecystectomy. Allergies and Home Medications Allergies Coded Allergies: morphine (Verified Allergy, Unknown, 10/04/15) Home Medications Lisinopril 10 Mg Tablet, 10 MG PO DAILY, (Reported) Metoprolol Succinate 100 Mg Tab.er.24h, 100 MG PO DAILY, (Reported) Multivit with Calcium,Iron,Min 1 Each Tablet, 1 EACH PO DAILY, (Reported) Patient Home Medication List Home Medication List Reviewed: Yes Review of Systems Review of Systems Constitutional: No chills, No diaphoresis Eyes: Denies Blindness, Denies Blurred Vision Ears, Nose, Mouth, Throat: see HPI, ear pain; denies ear discharge Respiratory: No cough, No short of breath Cardiovascular: No edema, No Hx of Intervention Gastrointestinal: No abdominal pain, No constipation, No diarrhea, No nausea Genitourinary: No discharge, No dysuria Past Jjzmfnt-Zmsimj-Urykzo Hx Patient Social History Alcohol Use: Denies Use Recreational Drug Use: No Smoking Status: Former Smoker Type Used: Cigarettes 2nd Hand Smoke Exposure: Yes Recent Foreign Travel: No Contact w/Someone Who Travel: No Recent Infectious Disease Expo: No Recent Hopitalizations: No Immunizations Up To Date Tetanus Booster (TDap): Less than 5yrs PED Vaccines UTD: Yes Date of Influenza Vaccine: Jan 27, 2018 Seasonal Allergies Seasonal Allergies: No Past Medical History Surgeries: Yes (D&C X2; HYST/OVARIES INTACT) Appendectomy, Section, Gallbladder, Hysterectomy Respiratory: No Currently Using CPAP: No Currently Using BIPAP: No Cardiac: Yes Hypertension Neurological: No 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 Disorders: No 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 Sexually Transmitted Disease: No HIV/AIDS: No Genitourinary: No Gastrointestinal: Yes (dysphagia) Gastroesophageal Reflux, Gall Bladder Disease Musculoskeletal: Yes Chronic Back Pain Endocrine: No HEENT: No Loss of Vision: Denies Hearing Impairment: Denies Cancer: No Psychosocial: No Integumentary: No Blood Disorders: No Adverse Reaction/Blood Tranf: No Family Medical History Diabetes mellitus FHx: ovarian cancer No Pertinent Family Hx Physical Exam Vital Signs Vital Signs - First Documented 03/15/19 15:57 Pulse 90 Resp 18 B/P (MAP) 161/82 (108) Pulse Ox 98 Capillary Refill : Less Than 3 Seconds Height, Weight, BMI Height: 5'5.00" Weight: 149lbs. 0.0oz. [id number]; 25.00 BMI Method:Stated General Appearance: WD/WN, mild distress HEENT: PERRL/EOMI, TMs normal, pharynx normal (mucosa is moist), other (left ear canal erythematous, tender to manipulation; tender along the well-healed old scar) Neck: full range of motion, supple, normal inspection, tender lateral (left side posterior lateral) Cardiovascular: normal peripheral pulses, regular rate, rhythm Respiratory: lungs clear, normal breath sounds, no respiratory distress, no accessory muscle use Gastrointestinal: normal bowel sounds, non tender, soft Psychiatric: alert, oriented x 3 Crainal Nerves: normal hearing, normal speech, PERRL Coordination/Gait: normal finger to nose, normal gait Motor/Sensory: no motor deficit, no sensory deficit Skin: normal color, warm/dry Progress/Results/Core Measures Results/Orders My Orders Orders - SUKI SALES Acetaminophen Tablet (Tylenol Tablet) (03/15/19 16:15) Ketorolac Injection (Toradol Injection) (03/15/19 16:15) Medications Given in ED Current Medications Medications Dose Ordered Sig/Lance Route Start Time Stop Time Status Last Admin Dose Admin Acetaminophen 1,000 mg ONCE ONCE PO 03/15/19 16:15 03/15/19 16:16 DC 03/15/19 16:12 1,000 MG Ketorolac Tromethamine 60 mg ONCE ONCE IM 03/15/19 16:15 03/15/19 16:16 DC 03/15/19 16:13 60 MG Vital Signs/I&O 03/15/19 15:57 Pulse 90 Resp 18 B/P (MAP) 161/82 (108) Pulse Ox 98 Blood Pressure Mean: 108 POS Progress Progress Note #1: Time: 16:12 Progress Note She started out with tenderness around her left ear and now she has an erythematous, inflamed, tender left ear canal with pain around her left occipital scar from a benign meningioma removal 3 months ago. It's less likely that the other meningioma has grown significantly in 3 months and she has no neurologic symptoms. Plan is to give her some pain medicines and see if this helps her. If so we can put her on topical antibiotics for her ear and follow up outpatient with primary care in the next day or 2. If not we can obtain imaging to look for intracranial pathology that significant. Progress Note #2: Time: 16:54 Progress Note The patient's headache is significantly improved. She's having no nausea or neurologic symptoms at this time. We have discussed doing CT imaging tonight with the risk of radiation versus going home getting some sleep, using [id number] pain meds and if symptoms do not improve by tomorrow and she can follow-up with primary care team to discuss outpatient MRI. if her symptoms worsen or she started to have neurologic symptoms and she knows now to return to the ER for further evaluation immediately. She is in agreement with this plan. Departure Impression Primary Impression: Otitis externa of left ear Qualified Codes: H60.392 - Other infective otitis externa, left ear Additional Impression: Headache Qualified Codes: G44.209 - Tension-type headache, unspecified, not intractable Disposition: 01 HOME, SELF-CARE Condition: Improved Departure-Patient Inst. Decision time for Depature: 16:56 Referrals: [facility] (PCP/Family) Primary Care Physician Patient Instructions: Outer Ear Infection (DC) Add. Discharge Instructions: Placed 10 drops of the ofloxacin in your left ear canal daily for the next week. If you're still having significant headache despite the Tylenol and ibuprofen you should follow-up with your primary care doctor next couple days. If you begin to experience weakness, numbness, tingling, loss of control of bowel or bladder, difficulty walking, confusion or other worrisome symptoms then please return to the nearest ER. Tylenol 1000 mg every 8 hours as needed for pain. Ibuprofen 800 mg every 8 hours as needed for pain. All discharge instructions reviewed with patient and/or family. Voiced understanding. Scripts Ofloxacin (Ofloxacin) 5 Ml Drops 10 DROPS OP DAILY for 7 Days, #5 ML 0 Refills Prov: SUKI SALES 03/15/19 Work/School Note: Work Release Form Date Seen in the Emergency Department: Mar 15, 2019 Return to Work: Mar 17, 2019 Restrictions: No Restrictions SUKI SALES Mar 15, 2019 16:13 POS
[2019-03-15] MEDS ORDERED: ACETAMINOPHEN 500 MG TAB (TYLENOL) PO ONE (16:15)
[2019-03-15] MEDS ORDERED: KETOROLAC 60 MG/2 ML VIAL IM ONE (16:15)
[2019-03-15] MEDS ORDERED: OFLO5DRO3 OP (17:01)
[2019-03-15 17:10] VITALS: BP 161/82
== END 2019-03-15 17:10 | disposition home or self-care (01) ==
LOC: EDUNIT# 15:49 → ER 15:50
DX: H60.92 Unspecified otitis externa, left ear (principal); R51 Headache; I10 Essential (primary) hypertension; K21.9 Gastro-esophageal reflux disease without esophagitis; Z86.69 Personal history of other diseases of the nervous system and sense organs; Z90.710 Acquired absence of both cervix and uterus; Z90.49 Acquired absence of other specified parts of digestive tract; Z88.5 Allergy status to narcotic agent; Z87.891 Personal history of nicotine dependence; Z77.22 Contact with and (suspected) exposure to environmental tobacco smoke (acute) (chronic); Z80.41 Family history of malignant neoplasm of ovary
CPT/HCPCS: 99284

== ENCOUNTER 2019-06-20 19:11 | Emergency (ER) | payer OTHER ==
[~2019-06-20] VITALS: Ht 165.1 cm; Wt 64.4 kg
[~2019-06-20 19:11] MED LIST changes: -IBUP-2055 PO; +IBUP-2473 PO; -METO-395 PO; +MTP100TCR PO; +OFLO5DRO3 OP; -TRAM50TA2 PO
--- NOTE | 2019-06-20 20:11 | Diagnostic Imaging Report ---
INDICATION: Foot and ankle pain and swelling. Three views of the left ankle were obtained. FINDINGS: The alignment is normal. The plafonds and talar dome are intact. Ankle mortise is symmetric. There is no fracture or dislocation. There is some spurring in the calcaneus. IMPRESSION: Spurring of the calcaneus, otherwise unremarkable. Dictated by: Dictated on workstation # [id number]
--- NOTE | 2019-06-20 20:13 | Diagnostic Imaging Report ---
INDICATION: Pain after fall. Three views of the left foot were obtained. FINDINGS: The alignment is normal. There is no fracture or dislocation. Soft tissues are unremarkable. IMPRESSION: No acute fracture or dislocation Dictated by: Dictated on workstation # [id number]
--- NOTE | 2019-06-20 20:18 | ED Lower Extremity ---
General Chief Complaint: Lower Extremity Stated Complaint: L ANKLE PAIN Nursing Triage Note: Pt amb to room triage with c/o L ankle/foot discomfort. Pt reports at approx 1630 on this day she stepped off x1 step et "twisted" her L ankle. Pt denies hitting head or LOC. Pt reports to have applied ice to ankle. Moderate swelling to L foot noted. Nursing Sepsis Screen: No Definite Risk History of Present Illness Date Seen by Provider: Jun 20, 2019 Time Seen by Provider: 19:35 Initial Comments 38-year-old female reports at 1630 today she twisted her left ankle and foot. She's had no previous injuries to her left lower extremity. She has ice in place at this time. She fell forward when this occurred, causing an abrasion superficially to her right palm. She reports her last tetanus vaccine was greater than 10 years. Onset: this afternoon Pain/Injury Location: left foot, left ankle Method of Injury: twisted Allergies and Home Medications Allergies Coded Allergies: morphine (Verified Allergy, Unknown, 10/04/15) Home Medications Lisinopril 10 Mg Tablet, 10 MG PO DAILY, (Reported) Metoprolol Succinate 100 Mg Tab.er.24h, 100 MG PO DAILY, (Reported) Multivit with Calcium,Iron,Min 1 Each Tablet, 1 EACH PO DAILY, (Reported) Ofloxacin 5 Ml Drops, 10 DROPS OP DAILY Prescribed by: SUKI SALES on 03/15/19 1701 Patient Home Medication List Home Medication List Reviewed: Yes Review of Systems Constitutional: no symptoms reported, see HPI Musculoskeletal: see HPI, joint pain (left ankle) All Other Systems Reviewed Negative Unless Noted: Yes Past Iaozanz-Dwupdp-Kyrngq Hx Past Med/Social Hx: Reviewed Nursing Past Med/Soc Hx Patient Social History Alcohol Use: Denies Use Recreational Drug Use: No Smoking Status: Former Smoker Type Used: Cigarettes 2nd Hand Smoke Exposure: Yes Recent Foreign Travel: No Contact w/Someone Who Travel: No Recent Infectious Disease Expo: No Recent Hopitalizations: No Immunizations Up To Date Tetanus Booster (TDap): Less than 5yrs PED Vaccines UTD: Yes Date of Influenza Vaccine: Jan 27, 2018 Seasonal Allergies Seasonal Allergies: No Past Medical History Surgeries: Yes (D&C X2; HYST/OVARIES INTACT) Appendectomy, Section, Gallbladder, Hysterectomy, Neurological Respiratory: No Currently Using CPAP: No Currently Using BIPAP: No Cardiac: Yes Hypertension Neurological: Yes Brain Tumor 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 Disorders: No 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 Sexually Transmitted Disease: No HIV/AIDS: No Genitourinary: No Gastrointestinal: Yes (dysphagia) Gastroesophageal Reflux, Gall Bladder Disease Musculoskeletal: Yes Chronic Back Pain Endocrine: No HEENT: No Loss of Vision: Denies Hearing Impairment: Denies Cancer: No Psychosocial: No Integumentary: No Blood Disorders: No Adverse Reaction/Blood Tranf: No Family Medical History Diabetes mellitus FHx: ovarian cancer No Pertinent Family Hx Physical Exam Vital Signs Vital Signs - First Documented 06/20/19 19:35 Temp 36.9 Pulse 91 Resp 16 B/P (MAP) 142/94 (110) Pulse Ox 98 O2 Delivery Room Air Capillary Refill : Less Than 3 Seconds Height, Weight, BMI Height: 5'5.00" Weight: 149lbs. 0.0oz. 67.722751yr; 23.00 BMI Method:Stated General Appearance: WD/WN, no apparent distress Cardiovascular: normal peripheral pulses, regular rate, rhythm Respiratory: chest non-tender, lungs clear, normal breath sounds Ankles: left ankle normal range of motion, left ankle bone tenderness (lateral), left ankle soft tissue tenderness, left ankle swelling Feet: left foot normal inspection, left foot normal range of motion, left foot pain, left foot soft tissue tenderness (lateral aspect) Neurologic/Psychiatric: no motor/sensory deficits, alert, normal mood/affect, oriented x 3 Superficial puncture wound 2 sets of right palm. The patient clean the area with soap water and peroxide and applied Neosporin. No active bleeding or tenderness to palpation. Will give tetanus vaccine. Progress/Results/Core Measures Results/Orders My Orders Orders - NEDRA COLIN Foot, Left, 3 Views (06/20/19 19:43) Ankle, Left, 3 Views (06/20/19 19:43) Dipht,Pertuss(Acell),Tet Adult (Boostrix (06/20/19 20:30) Medications Given in ED Current Medications Medications Dose Ordered Sig/Lance Route Start Time Stop Time Status Last Admin Dose Admin Diphtheria/ Tetanus/Acell Pertussis 0.5 ml ONCE ONCE IM 06/20/19 20:30 06/20/19 20:27 DC 06/20/19 20:24 0.5 ML Vital Signs/I&O 06/20/19 06/20/19 19:35 20:27 Temp 36.9 36.9 Pulse 91 91 Resp 16 16 B/P (MAP) 142/94 (110) 142/94 (110) Pulse Ox 98 98 O2 Delivery Room Air Room Air Blood Pressure Mean: 110 Diagnostic Imaging Diagonstic Imaging: Xray Plain Films/CT/US/NM/MRI: other (left foot) Comments NAME: PURNIMA MURILLO [facility] REC#: [id number] PT STATUS: REG ER : 1980 PHYSICIAN: NEDRA COLIN ADMIT DATE: 06/20/19/ER Draft Date of Exam:06/20/19 FOOT, LEFT, 3 VIEWS INDICATION: Pain after fall. Three views of the left foot were obtained. FINDINGS: The alignment is normal. There is no fracture or dislocation. Soft tissues are unremarkable. IMPRESSION: No acute fracture or dislocation Dictated on workstation # [id number] Dict: 06/20/192005 Trans: 06/20/192012 SAMUEL [id number] Interpreted by: NICKIE CARMICHAEL MD Electronically signed b Reviewed: Reviewed by Me Diagonstic Imaging: Xray Plain Films/CT/US/NM/MRI: ankle Comments NAME: PURNIMA MURILLO [facility] REC#: [id number] PT STATUS: REG ER : 1980 PHYSICIAN: NEDRA COLIN ADMIT DATE: 06/20/19/ER Draft Date of Exam:06/20/19 ANKLE, LEFT, 3 VIEWS INDICATION: Foot and ankle pain and swelling. Three views of the left ankle were obtained. FINDINGS: The alignment is normal. The plafonds and talar dome are intact. Ankle mortise is symmetric. There is no fracture or dislocation. There is some spurring in the calcaneus. IMPRESSION: Spurring of the calcaneus, otherwise unremarkable. Dictated on workstation # [id number] Dict: 06/20/192005 Trans: 06/20/192009 SAMUEL [id number] Interpreted by: NICKIE CARMICHAEL MD Electronically signed by: Reviewed: Reviewed by Me Departure Impression Primary Impression: Left ankle sprain Qualified Codes: S93.492A - Sprain of other ligament of left ankle, initial encounter Disposition: 01 HOME, SELF-CARE Condition: Improved Departure-Patient Inst. Decision time for Depature: 20:15 Referrals: [facility] (PCP/Family) Primary Care Physician Patient Instructions: Ankle Sprain (DC) Add. Discharge Instructions: Ice and elevate left ankle for 20 minutes every 2 hours while awake. Clean abrasion to right hand with soap and water, rinse with peroxide and apply triple antibiotic ointment and Band-Aid 3 times daily. Alternate between Tylenol 650 mg and ibuprofen 600 mg every 4 hours for pain and swelling. Gentle range of motion to the left ankle. Use Rolly wrap as needed for the next 2-3 weeks. Follow-up with your primary care provider if symptoms are not improving in approximately 5-7 days. Return to the emergency department for new, urgent health care needs. All discharge instructions reviewed with patient and/or family. Voiced understanding. NEDRA COLIN Jun 20, 2019 20:18
[2019-06-20 20:27] VITALS: BP 142/94
[2019-06-20] MEDS ORDERED: TETANUS,DIPTH,PERTUSS P/F (BOOSTRIX) 0.5 ML VIAL IM ONE (20:30)
== END 2019-06-20 20:27 | disposition home or self-care (01) ==
LOC: EDUNIT# 19:11 → ER 19:12
DX: S93.492A Sprain of other ligament of left ankle, initial encounter (principal); I10 Essential (primary) hypertension; K21.9 Gastro-esophageal reflux disease without esophagitis; Z23 Encounter for immunization; Z80.41 Family history of malignant neoplasm of ovary; Z87.891 Personal history of nicotine dependence; Z88.5 Allergy status to narcotic agent; X50.1XXA Overexertion from prolonged static or awkward postures, initial encounter
CPT/HCPCS: 73610; 73630; 90715

== ENCOUNTER 2019-06-29 22:34 | Emergency (ER) | payer OTHER ==
[~2019-06-29] VITALS: Ht 165.1 cm; Wt 65.1 kg
[2019-06-29] MEDS ORDERED: PANTOPRAZOLE 40 MG (PROTONIX) VIAL IV STA (22:45)
[2019-06-29] MEDS ORDERED: ONDANSETRON 4 MG/2 ML (SDV) Z0FRAN IVP STA (22:45)
[2019-06-29] MEDS ORDERED: NS IV 1000 ML 1,000 ML IV STA (22:45)
[2019-06-29] MEDS ORDERED: KETOROLAC 30 MG/ML VIAL IVP STA (22:45)
--- NOTE | 2019-06-29 22:50 | ED General ---
General Stated Complaint: CHEST PAIN/SOB Source of Information: Patient History of Present Illness Date Seen by Provider: Jun 29, 2019 Time Seen by Provider: 22:36 Initial Comments 38-year-old female presenting with complaints of left-sided chest pain since around 6 PM tonight. She states that she's been having nausea and she was having several episodes of vomiting Saturday night. Tonight she had tried taking a nap after the pain and it was not helping. The pain was worse when she had gone to work and was moving around and breathing more. She has increased pain with deep breaths and exertion. She continues to have nausea but is not thrown up tonight. She had diarrhea last night as well. She denies having any cough but has been having shortness of breath with her left-sided chest pain. She has not tried in anything for pain. She did take Protonix because the nausea and vomiting last night. She also has low back pain. Allergies and Home Medications Allergies Coded Allergies: morphine (Verified Allergy, Unknown, 10/04/15) Home Medications Hydrocodone/Acetaminophen 1 Each Tablet, 1 TAB PO Q6H PRN for PAIN-SEVERE (8-10) Prescribed by: RACHEL PALMA on 06/30/1923 Lisinopril 10 Mg Tablet, 10 MG PO DAILY, (Reported) Metoprolol Succinate 100 Mg Tab.er.24h, 100 MG PO DAILY, (Reported) Multivit with Calcium,Iron,Min 1 Each Tablet, 1 EACH PO DAILY, (Reported) Ofloxacin 5 Ml Drops, 10 DROPS OP DAILY Prescribed by: SUKI SALES on 03/15/19 1701 Ondansetron 4 Mg Tab.rapdis, 4 MG PO Q6H PRN for NAUSEA/VOMITING Prescribed by: RACHEL PALMA on 06/30/1922 Sucralfate 1 Gm/10 Ml Oral.susp, 1 GM PO TIDAC Prescribed by: RACHEL PALMA on 06/30/1922 Patient Home Medication List Home Medication List Reviewed: Yes Review of Systems Review of Systems Constitutional: No chills; dizziness; No fever; malaise EENTM: no symptoms reported Respiratory: No hemoptysis; short of breath Cardiovascular: chest pain (left sided sharp); No edema; palpitations; No syncope Gastrointestinal: diarrhea, nausea, vomiting Genitourinary: no symptoms reported Musculoskeletal: no symptoms reported Skin: no symptoms reported Psychiatric/Neurological: No Symptoms Reported Past Yaaebig-Fqkgte-Kvxwzr Hx Past Med/Social Hx: Reviewed Nursing Past Med/Soc Hx Patient Social History Type Used: Cigarettes 2nd Hand Smoke Exposure: Yes Recent Foreign Travel: No Contact w/Someone Who Travel: No Recent Hopitalizations: No Immunizations Up To Date Tetanus Booster (TDap): Less than 5yrs PED Vaccines UTD: Yes Date of Influenza Vaccine: Jan 27, 2018 Seasonal Allergies Seasonal Allergies: No Past Medical History Surgeries: Yes (D&C X2; HYST/OVARIES INTACT) Appendectomy, Section, Gallbladder, Hysterectomy, Neurological Respiratory: No Currently Using CPAP: No Currently Using BIPAP: No Cardiac: Yes Hypertension Neurological: Yes Brain Tumor 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 Disorders: No 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 Sexually Transmitted Disease: No HIV/AIDS: No Genitourinary: No Gastrointestinal: Yes (dysphagia) Gastroesophageal Reflux, Hiatal Hernia, Gall Bladder Disease Musculoskeletal: Yes Chronic Back Pain Endocrine: No HEENT: No Loss of Vision: Denies Hearing Impairment: Denies Cancer: No Psychosocial: No Integumentary: No Blood Disorders: No Adverse Reaction/Blood Tranf: No Family Medical History Diabetes mellitus FHx: ovarian cancer No Pertinent Family Hx Physical Exam Vital Signs Vital Signs - First Documented 06/29/19 06/29/19 22:38 23:00 Temp 37.0 Pulse 97 Resp 17 B/P (MAP) 151/76 (101) Pulse Ox 98 O2 Delivery Room Air Capillary Refill : Height, Weight, BMI Height: 5'5.00" Weight: 149lbs. 0.0oz. 67.252491cc; 23.00 BMI Method:Stated General Appearance: WD/WN, Anxious, Mild Distress HEENT: PERRL/EOMI, Normal ENT Inspection, Pharynx Normal Neck: Full Range of Motion, Normal Inspection, Non Tender, Supple; No Carotid Bruit Respiratory: Lungs Clear, Normal Breath Sounds, No Accessory Muscle Use, No Respiratory Distress, Other (tender to palpation of left chest wall, similar pain to deeper in chest. Dull pain with palpation vs sharp pain with deep breath and in her chest) Cardiovascular: No Edema, No Gallop, No JVD, No Murmur, Normal Peripheral Pulses, Tachycardia Gastrointestinal: Normal Bowel Sounds, No Pulsatile Mass, Non Tender, Soft Extremity: Normal Capillary Refill, Normal Inspection, No Pedal Edema Neurologic/Psychiatric: Alert, Oriented x3, No Motor/Sensory Deficits Skin: Normal Color, Warm/Dry Progress/Results/Core Measures Suspected Sepsis SIRS Temperature: Pulse: Respiratory Rate: Laboratory Tests 06/29/19 22:48: White Blood Count 13.8H Blood Pressure / Mean: Laboratory Tests 06/29/19 22:48: Creatinine 0.75, INR Comment 1.0, Platelet Count 379, Total Bilirubin 0.3 Results/Orders Lab Results Laboratory Tests Test 06/29/19 22:48 06/29/19 23:05 Range/Units White Blood Count 13.8 H 4.3-11.0 10^3/uL Red Blood Count 4.73 4.35-5.85 10^6/uL Hemoglobin 14.7 11.5-16.0 G/DL Hematocrit 43 35-52 % Mean Corpuscular Volume 92 80-99 FL Mean Corpuscular Hemoglobin 31 25-34 PG Mean Corpuscular Hemoglobin Concent 34 32-36 G/DL Red Cell Distribution Width 12.1 10.0-14.5 % Platelet Count 379 130-400 10^3/uL Mean Platelet Volume 9.1 7.4-10.4 FL Neutrophils (%) (Auto) 60 42-75 % Lymphocytes (%) (Auto) 28 12-44 % Monocytes (%) (Auto) 9 0-12 % Eosinophils (%) (Auto) 2 0-10 % Basophils (%) (Auto) 1 0-10 % Neutrophils # (Auto) 8.3 H 1.8-7.8 X 10^3 Lymphocytes # (Auto) 3.9 1.0-4.0 X 10^3 Monocytes # (Auto) 1.2 H 0.0-1.0 X 10^3 Eosinophils # (Auto) 0.3 0.0-0.3 10^3/uL Basophils # (Auto) 0.1 0.0-0.1 10^3/uL Prothrombin Time 13.7 12.2-14.7 SEC INR Comment 1.0 0.8-1.4 Activated Partial Thromboplast Time 32 24-35 SEC D-Dimer 0.33 0.00-0.49 UG/ML Sodium Level 141 135-145 MMOL/L Potassium Level 3.7 3.6-5.0 MMOL/L Chloride Level 104 98-107 MMOL/L Carbon Dioxide Level 25 21-32 MMOL/L Anion Gap 12 5-14 MMOL/L Blood Urea Nitrogen 10 7-18 MG/DL Creatinine 0.75 0.60-1.30 MG/DL Estimat Glomerular Filtration Rate > 60 BUN/Creatinine Ratio 13 Glucose Level 106 H 70-105 MG/DL Calcium Level 8.8 8.5-10.1 MG/DL Corrected Calcium 8.6 8.5-10.1 MG/DL Magnesium Level 2.1 1.6-2.4 MG/DL Total Bilirubin 0.3 0.1-1.0 MG/DL Aspartate Amino Transf (AST/SGOT) 9 5-34 U/L Alanine Aminotransferase (ALT/SGPT) 8 0-55 U/L Alkaline Phosphatase 86 40-136 U/L Troponin I < 0.30 <0.30 NG/ML Pro-B-Type Natriuretic Peptide 112.6 H <75.0 PG/ML Total Protein 7.1 6.4-8.2 GM/DL Albumin 4.3 3.2-4.5 GM/DL Lipase 23 8-78 U/L Urine Color YELLOW Urine Clarity SLT CLOUDY Urine pH 5.5 5-9 Urine Specific Mcdaniels >=1.030 1.016-1.022 Urine Protein NEGATIVE NEGATIVE Urine Glucose (UA) NEGATIVE NEGATIVE Urine Ketones NEGATIVE NEGATIVE Urine Nitrite NEGATIVE NEGATIVE Urine Bilirubin 1+ H NEGATIVE Urine Urobilinogen 0.2 < = 1.0 MG/DL Urine Leukocyte Esterase NEGATIVE NEGATIVE Urine RBC (Auto) NEGATIVE NEGATIVE Urine RBC NONE /HPF Urine WBC NONE /HPF Urine Squamous Epithelial Cells 5-10 /HPF Urine Crystals PRESENT H /LPF Urine Calcium Oxalate Crystals MODERATE H /LPF Urine Bacteria TRACE /HPF Urine Casts NONE /LPF Urine Mucus LARGE H /LPF Urine Culture Indicated NO My Orders Orders - RACHEL PALMA MD Cbc With Automated Diff (06/29/19 22:45) Magnesium (06/29/19 22:45) Ekg Tracing (06/29/19 22:45) Comprehensive Metabolic Panel (06/29/19 22:45) Protime With Inr (06/29/19 22:45) Partial Thromboplastin Time (06/29/19 22:45) O2 (06/29/19 22:45) Monitor-Rhythm Ecg Trace Only (06/29/19 22:45) Ed Iv/Invasive Line Start (06/29/19 22:45) Lipase (06/29/19 22:45) Troponin I Fs (06/29/19 22:45) Probnp Fs (06/29/19 22:45) Chest Pa/Lat (2 View) (06/29/19 22:45) Fibrin Degradation Products (06/29/19 22:45) Ns Iv 1000 Ml (Sodium Chloride 0.9%) (06/29/19 22:45) Ondansetron Injection (Zofran Injectio (06/29/19 22:45) Pantoprazole Injection (Protonix Injecti (06/29/19 22:45) Ketorolac Injection (Toradol Injection) (06/29/19 22:45) Ua Culture If Indicated (06/29/19 22:51) Fentanyl Injection (Sublimaze Injection (06/29/19 23:39) Orphenadrine Injection (Norflex Injectio (06/29/19 23:39) Sucralfate Tablet (Carafate Tablet) (06/30/19 00:15) Rx-Ondansetron Po (Rx-Zofran Po) (06/30/19 00:15) Rx-Hydrocodone/Apap 5-325 Mg (Rx-Vicodin (06/30/19 00:15) Medications Given in ED Current Medications Medications Dose Ordered Sig/Lance Route Start Time Stop Time Status Last Admin Dose Admin Acetaminophen/ Hydrocodone Bitart 1 ea Q6H PRN PO 06/30/19 00:15 06/30/19 00:31 DC 06/30/19 00:21 1 EA Ondansetron HCl 4 mg Q6H PRN PO 06/30/19 00:15 06/30/19 00:31 DC 06/30/19 00:22 4 MG Vital Signs/I&O 06/29/19 06/29/19 06/30/19 22:38 23:00 00:29 Temp 37.0 37.0 Pulse 97 74 Resp 17 19 B/P (MAP) 151/76 (101) 128/78 Pulse Ox 98 99 O2 Delivery Room Air Room Air Room Air 06/30/19 00:00 Intake Total 1000 ml Balance 1000 ml Capillary Refill : Progress Note #1: Progress Note Check basic labs and electrocardiogram with chest x-ray. We'll try Zofran for nausea and Protonix to see if that helps with her pain. Will also try dose of Toradol to see if that helps with her pain since she does have pain with deep breaths as well as palpation of her chest wall. Give IV fluids for hydration since she has been vomiting and her heart rate was initially a little over 100 when she first walked in. Progress Note #2: Time: 23:29 Progress Note Her CBC has mild elevation of the white blood cell count 13.8 thousand. She does have a mild left shift. Her urinalysis shows elevated specific gravity and crystals to go along with dehydration. Her heart rate is improved with hydration. Awaiting chemistry with cardiac enzymes and coags with a d-dimer. Progress Note #3: Time: 23:39 Progress Note Reviewed results with patient and her cardiac enzymes and chemistry were negative. She was still having pain but nausea was improved. will try Fentanyl and Norflex to see if that helps with her pain. She may have pulled something with her vomiting and have some pain from the n/v or continued stomach and esophagus irritation. Awaiting D dimer and coags still Progress Note #4: Time: 00:18 Progress Note Coags and D dimer are negative as well. Pt feels better after Fentanyl and Norflex. She also relates now that she does have a history of a hiatal hernia. Will continue treatment with Protonix at home. Add on Zofran with Carafate. Counseled to check back with primary about continued problems. Try liquid or bland diet for the next day or 2. Will send with a few hydrocodone for severe pain. ECG Initial ECG Impression Date: Jun 29, 2019 Initial ECG Impression Time: 22:44 Initial ECG Rate: 98 Initial ECG Rhythm: Normal Sinus Initial ECG Comparisson: Unchanged Comment Sinus rhythm with a heart rate 98 bpm. AR interval 160 ms. QT interval 335 ms and a QTc interval 428 ms. There is no acute ST elevation. This appears similar to prior tracing from December 2017. Diagnostic Imaging Diagonstic Imaging: Xray Plain Films/CT/US/NM/MRI: chest Comments On my review of her 2 view chest x-ray she does not have any definite infiltrate. She has no cardiomegaly or effusion. Reviewed: Reviewed by Me Departure Impression Primary Impression: Pleuritic chest pain Additional Impressions: Nausea and vomiting in adult patient Hiatal hernia with GERD and esophagitis Disposition: HOME, SELF-CARE Condition: Improved Departure-Patient Inst. Decision time for Depature: 00:25 Referrals: [facility] (PCP/Family) Primary Care Physician Patient Instructions: Chest Pain That Is Not Caused by the Heart (DC), Hiatal Hernia (DC), Nausea and Vomiting, Adult (DC), Pleuritic Chest Pain (DC) Add. Discharge Instructions: Stay well hydrated and drink plenty of fluids Follow up with clinic if not improving Take your Protonix (Pantoprazole) every day to help with acid and hiatal hernia. Take Carafate (sucralfate) to help with acid and hiatal hernia as well. Use the Dissolving Zofran tablets to help keep your stomach settled so you can drink and eat better. For severe pain you could use the Hydrocodone. Scripts Ondansetron (Ondansetron Odt) 4 Mg Tab.rapdis 4 MG PO Q6H PRN for NAUSEA/VOMITING for 2 Days, #8 TAB 0 Refills Prov: RACHEL PALMA MD 06/30/19 Hydrocodone/Acetaminophen (Hydrocodone-Acetamin 5-325 mg) 1 Each Tablet 1 TAB PO Q6H PRN for PAIN-SEVERE (8-10) for 2 Days, #8 TAB 0 Refills Prov: RACHEL PALMA MD 06/30/19 Sucralfate (Carafate) 1 Gm/10 Ml Oral.susp 1 GM PO TIDAC for hiatal hernia/GERD for 10 Days, #300 ML 0 Refills Prov: RACHEL PALMA MD 06/30/19 Work/School Note: Work Release Form Date Seen in the Emergency Department: Jun 29, 2019 Return to Work: Jun 30, 2019 Restrictions: No Restrictions RACHEL PALMA MD Jun 29, 2019 22:50
[2019-06-29 22:58] LABS: BASOPHILS % (AUTO) 1 % (0-10); EOSINOPHILS % (AUTO) 2 % (0-10); HEMATOCRIT 43 % (35-52); HEMOGLOBIN 14.7 G/DL (11.5-16.0); LYMPHOCYTES % (AUTO) 28 % (12-44); MEAN CORPUSCULAR HEMOGLOBIN 31 PG (25-34); MEAN CORPUSCULAR HGB CONC 34 G/DL (32-36); MEAN CORPUSCULAR VOLUME 92 FL (80-99); MEAN PLATELET VOLUME 9.1 FL (7.4-10.4); MONOCYTES % (AUTO) 9 % (0-12); NEUTROPHILS % (AUTO) 60 % (42-75); PLATELET COUNT 379 10^3/uL (130-400); RED CELL DISTRIBUTION WIDTH 12.1 % (10.0-14.5); WHITE BLOOD COUNT 13.8 10^3/uL (4.3-11.0)
[2019-06-29 22:59] LABS: BASOPHILS # (AUTO) 0.1 10^3/uL (0.0-0.1); EOSINOPHILS # (AUTO) 0.3 10^3/uL (0.0-0.3); LYMPHOCYTES # (AUTO) 3.9 X 10^3 (1.0-4.0); MONOCYTES # (AUTO) 1.2 X 10^3 (0.0-1.0); NEUTROPHILS # (AUTO) 8.3 X 10^3 (1.8-7.8)
[2019-06-29 23:22] LABS: CLARITY,URINE SLT CLOUDY; COLOR,URINE YELLOW; PH,URINE 5.5 (5-9)
[2019-06-29 23:25] LABS: BILIRUBIN,URINE 1+ (NEGATIVE); GLUCOSE, URINE (UA) NEGATIVE (NEGATIVE); KETONES,URINE NEGATIVE (NEGATIVE); NITRITE,URINE NEGATIVE (NEGATIVE); PROTEIN,URINE NEGATIVE (NEGATIVE)
[2019-06-29 23:26] LABS: BACTERIA,URINE TRACE /HPF; CALCIUM OXALATE CRYSTALS,UR MODERATE /LPF; LEUKOCYTE ESTERASE ,URINE NEGATIVE (NEGATIVE)
[2019-06-29 23:27] LABS: BUN/CREATININE RATIO 13; CALCIUM 8.8 MG/DL (8.5-10.1); CARBON DIOXIDE 25 MMOL/L (21-32); CHLORIDE 104 MMOL/L (98-107); CREATININE SERUM 0.75 MG/DL (0.60-1.30); GFR ESTIMATED > 60; GLUCOSE 106 MG/DL (70-105); MAGNESIUM 2.1 MG/DL (1.6-2.4); POTASSIUM 3.7 MMOL/L (3.6-5.0); SODIUM 141 MMOL/L (135-145)
[2019-06-29 23:28] LABS: ALANINE AMINOTRANSFERASE 8 U/L (0-55); ALBUMIN 4.3 GM/DL (3.2-4.5); ALKALINE PHOSPHATASE 86 U/L (40-136); BILIRUBIN,TOTAL 0.3 MG/DL (0.1-1.0); LIPASE 23 U/L (8-78); TOTAL PROTEIN 7.1 GM/DL (6.4-8.2)
[2019-06-29] MEDS ORDERED: ORPHENADRINE 60 MG/2 ML (NORFLEX) AMP IVP STA (23:39)
[2019-06-29] MEDS ORDERED: fentaNYL INJECTION 100 MCG/2 ML AMP IVP STA (23:39)
[2019-06-30 00:01] LABS: PROTHROMBIN TIME PATIENT 13.7 SEC (12.2-14.7)
[2019-06-30 00:02] LABS: FIBRIN DEGRADATION PRODUCTS 0.33 UG/ML (0.00-0.49)
[2019-06-30] MEDS ORDERED: RX-HYDROCODONE/APAP 5/325 MG #4 TAB PK PO PRN (00:15)
[2019-06-30] MEDS ORDERED: SUCRALFATE 1 GM (CARAFATE) TAB PO STA (00:15)
[2019-06-30] MEDS ORDERED: RX-ONDANSETRON 4 MG ODT (ZOFRAN) PPK #4 PO PRN (00:15)
[2019-06-30] MEDS ORDERED: SUCR1ORA5 PO (00:23)
[2019-06-30] MEDS ORDERED: ACHD5005 PO (00:23)
[2019-06-30] MEDS ORDERED: ONDA4TAB11 PO (00:23)
[2019-06-30 00:29] VITALS: BP 128/78
--- NOTE | 2019-06-30 06:21 | Diagnostic Imaging Report ---
HISTORY: Chest pain COMPARISON: 12/03/2015 TECHNIQUE: 2 views of the chest FINDINGS: There is hazy indistinction of the diaphragm at the medial right lung base and at the left lung base. No pleural effusion or pneumothorax is seen. The cardiac silhouette is normal in size. Lung volumes are mildly large. IMPRESSION: 1. Hazy indistinction of the diaphragm, left greater than right. This may be due to atelectasis or infiltrate, or possibly motion artifact. Dictated by: Dictated on workstation # [id number]
--- OUTSIDE RECORDS SUMMARY | 2019-07-04 13:47 | XMS REPORT | Encounter Summary ---
Author Author [facility] Organization [facility] Address Unknown Phone Unavailable Care Team Providers Care Process Assistant Name Role Phone Sherita Mishra MELE PCP Unavailable Reason for Visit * Reason Comments Other Encounter Details Care Team Description Date Type Department Romeo Mcdaniel MD [address] [facility] [address] [place] [address] Other 01/26/2019 Telephone [facility] [address] [place] [address] Social History Date Tobacco Use Types Packs/Day Years Used Quit: 11/19/2018 Former Smoker Cigarettes 0.5 13 Smokeless Tobacco: Never Used Drinks/Week oz/Week Comments Alcohol Use Never Sex Assigned at Date Recorded Not on file Industry Job Start Date Occupation Not on file Not on file Not on file Travel End Travel History Travel Start No recent travel history available. documented as of this encounter Miscellaneous Notes * Telephone Encounter - Mary Mora - 01/27/2019 12:44 PM CDT Patient is notified. * Telephone Encounter - Mary Mora - 01/26/2019 3:50 PM CDT Patient contacted clinic stating that she returned back to work last night, has not been sleeping well, and feels physically exhausted . She saw her PCP today a nd they felt like she should work at least 3-4 days a week for a few weeks inste ad of 5. Patient wanted to know if she could go to work for 3 days out of the we ek just until she felt like she has completely felt better. documented in this encounter Plan of Treatment Not on filedocumented as of this encounter Visit Diagnoses Not on filedocumented in this encounter
--- OUTSIDE RECORDS SUMMARY | 2019-07-04 13:47 | XMS REPORT | Encounter Summary ---
Author Author [facility] Organization [facility] Address Unknown Phone Unavailable Care Team Providers Care Gun Striper Name Role Phone MishraSherita MELE PCP Unavailable Reason for Referral * Radiology Services (Routine) Referred By Contact Referred To Contact Status Reason Specialty Diagnoses / Procedures Romeo Mcdaniel MD [address] [facility] [address] [place] [address] Wp Mri [address] [place] [address] Authorized Radiology Diagnoses Meningioma (HCC) P rocedures MRI HEAD WO/W CONTRAST Reason for Visit * Reason Comments Post Operative Visit * (Routine) Referred By Contact Referred To Contact Status Reason Specialty Diagnoses / Procedures Incomplete Neurosurgery Encounter Details Care Team Description Date Type Department Romeo Mcdaniel MD [address] [facility] [address] [place] [address] Meningioma (HCC) (Primary Dx) 01/23/2019 Office Visit The [facility] [address] [place] [id number] Social History Date Tobacco Use Types Packs/Day [...] history available. documented as of this encounter Last Filed Vital Signs Reading Time Taken Comments Vital Sign 112/74 01/23/2019 11:35 AM CDT Blood Pressure 74 01/23/2019 11:35 AM CDT Pulse 37 C (98.6 F) 01/23/2019 11:35 AM CDT Temperature - - Respiratory Rate - - Oxygen Saturation - - Inhaled Oxygen Concentration 68.5 kg (151 lb) 01/23/2019 11:35 AM CDT Weight - - Height 25.92 12/03/2018 7:00 AM CDT Body Mass Index documented in this encounter Progress Notes * Romeo Mcdaniel MD - 01/23/2019 12:00 PM CDT Neurosurgery Clinic Follow-up Patient Active Problem List Diagnosis Date Noted Acute blood loss as cause of postoperative anemia 12/04/2018 Anxiety 12/03/2018 Depression 12/03/2018 HTN (hypertension) 12/03/2018 IBS (irritable bowel syndrome) 12/03/2018 Meningioma (HCC) 11/26/2018 12/03/18: 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 Patholog y: Meningioma grade 1 38-year-old female who is status post resection of a tentorial meningioma. She is doing well overall. She still has some pain around the incision area, but is only taking Tylenol. She is off her other medications. Her balance seems to be doing okay. No other complaints. Awake, alert 5 out of 5 strength x4 Soft touch sensation x4 Gait within normal limits Incision well-healed No new imaging She is doing well and having an expected postoperative course. I expect her sym ptoms will improve. We also reviewed the pathology today in the office is a gra de 1 meningioma. I am going to remove her restrictions at this point. I have g iven her a form to return back to work. I would like to see her back in 3 month s with a repeat MRI of the brain. She will let me know if she has any questions or concerns. Please call [phone] with questions or concern Romeo Mcdaniel MD documented in this encounter Plan of Treatment Not on filedocumented as of this encounter Results * MRI HEAD WO/W CONTRAST (04/17/2019 1:09 PM BOILER RIVETER) Specimen Impressions Performed At 1. Prior left tentorial meningioma resection withou t evidence of residual or [facility] recurrent tumor. 2. Stable small hyperostotic right pt erional meningioma. 3. Persistent bilateral petrous apex and jugular foramen cephaloceles and partially empty appearance of the sella , likely due to intracranial hypertension (in the correct clinical setting). Finalized by Nathanael Chávez M.D. on 04/17 2:00 PM. Dictated by Nathanael Chávez M.D. on 04/17/2019 1:45 PM. Narrative Performed At EXAM: MRI BRAIN [facility] HISTORY: , S/P RESECTION OF TENTORIAL MENINGIOMA , TECHNIQUE: Multiplanar and multisequenc e MR imaging of the head was performed. This was done both before and after the administration of MultiHancecontrast. COMPARISON: MRI brain December 04, 2018 FINDINGS: Dr. Nathanael Chávez M.D. has personally re viewed these images and formulated the interpretations and opinions expressed in this report. Prior left suboccipital craniotomy and meningioma resection is again noted. No evidence of residual or recurrent tumor at the resection site. There is resolution of posterior fossa mass effe ct with posterior left cerebellar encephalomalacia and gliosis. Again the left transverse sinus is irregular, small caliber, and not well visualized. There is a stable small dome-shaped enhancing extra-axial nodule along the right pterional convexity measuring 1.1 cm (image 113 series 11) with associate d focal hyperostotic thickening. Prominent bilateral petrous apex cephal oceles, partially empty appearance of the sella and bilateral pars nervosa cephal oceles are again noted. The ventricles and subarachnoid spaces are otherwise normal in size and configuration. Brain parenchyma is othe rwise normal in signal. No significant intracranial mass effect. The vascular flow-voids are unremarkable. Diffusion weighted imaging is not indicative of a cute or recent infarct. Procedure Note Interface, Radiant Results - 04/17/2019 2:03 PM BOILER RIVETER EXAM: MRI BRAIN HISTORY: , S/P RESECTION OF TENTORIAL MENINGIOMA, TECHNIQUE: Multiplanar and multisequence MR imaging of the head was performed. This was done both before and after the administration of MultiHancecontrast. COMPARISON: MRI brain December 04, 2018 FINDINGS: Dr. Nathanael Chávez M.D. has personally reviewed these images and formulated the interpretations and opinions expressed in this report. Prior left suboccipital craniotomy and meningioma resection is again noted. No evidence of residual or recurrent tumor at the resection site. There is resolution of posterior fossa mass effect with posterior left cerebellar encephalomalacia and gliosis. Again the left transverse sinus is irregular, small caliber, and not well visualized. There is a stable small dome-shaped enhancing extra-axial nodule along the right pterional convexity measuring 1.1 cm (image 113 series 11) with associated focal hyperostotic thickening. Prominent bilateral petrous apex cephaloceles, partially empty appearance of the sella and bilateral pars nervosa cephaloceles are again noted. The ventricles and subarachnoid spaces are otherwise normal in size and configuration. Brain parenchyma is otherwise normal in signal. No significant intracranial mass effect. The vascular flow-voids are unremarkable. Diffusion weighted imaging is not indicative of acute or recent infarct. IMPRESSION 1. Prior left tentorial meningioma rese ction without evidence of residual or recurrent tumor. 2. Stable small hyperostotic right pter ional meningioma. 3. Persistent bilateral petrous apex an d jugular foramen cephaloceles and partially empty appearance of the sella, likely due to intracranial hypertension (in the correct clinical setting). Finalized by Nathanael Chávez M.D. on 04/17/2019 2:00 PM. Dictated by Nathanael Chávez M.D. on 04/17/2019 1:45 PM. Performing Organization Address City/State/Zipcode Ph one Number [facility] documented in this encounter Visit Diagnoses Diagnosis Meningioma (HCC) - Primary Benign neoplasm of cerebral meninges documented in this encounter
--- OUTSIDE RECORDS SUMMARY | 2019-07-04 13:47 | XMS REPORT | Encounter Summary ---
Author Author [facility] Organization [facility] Address Unknown Phone Unavailable Care Team Providers Care Motor Runner Name Role Phone Sherita Mishra MELE PCP Unavailable Reason for Referral * Radiology Services (Routine) Referred By Contact Referred To Contact Status Reason Specialty Diagnoses / Procedures Romeo Mcdaniel MD [address] [facility] [address] [place] [id number] New Request Radiology Diagnoses Meningioma (HCC) P rocedures MRI HEAD WO/W CONTRAST Reason for Visit * Reason Comments Other Return Patient * (Routine) Referred By Contact Referred To Contact Status Reason Specialty Diagnoses / Procedures Incomplete Encounter Details Care Team Description Date Type Department Romeo Mcdaniel MD [address] [facility] [address] [place] [id number] Meningioma (HCC) (Primary Dx) 04/17/2019 Office Visit [facility] [address] [place] [address] Social History Date Tobacco Use [...] Signs Reading Time Taken Comments Vital Sign 122/90 04/17/2019 1:33 PM STRAIGHTENING MACHINE FEEDER Blood Pressure 81 04/17/2019 1:33 PM STRAIGHTENING MACHINE FEEDER Pulse 36.9 C (98.5 F) 04/17/2019 1:33 PM STRAIGHTENING MACHINE FEEDER Temperature - - Respiratory Rate - - Oxygen Saturation - - Inhaled Oxygen Concentration - - Weight - - Height - - Body Mass Index documented in this encounter Progress Notes * Romeo Mcdaniel MD - 04/17/2019 1:45 PM STRAIGHTENING MACHINE FEEDER Neurosurgery Clinic Follow-up Patient Active Problem List Diagnosis Date Noted Acute blood loss as cause of postoperative anemia 12/04/2018 Anxiety 12/03/2018 Depression 12/03/2018 HTN (hypertension) 12/03/2018 IBS (irritable bowel syndrome) 12/03/2018 Meningioma (HCC) 11/26/2018 12/03/18: 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 Patholog y: Meningioma grade 1 38-year-old female who presents to clinic today for postoperative visit. She un derwent resection of a tentorial meningioma in November 2018. She is had a little bit of a slow recovery with some pain issues and anxiety. Overall, she is much better. She has returned back to work 4 days a week at this point. She does have good days and bad days. She still has some neck pain around the i ncision site. Awake, alert 5 out of 5 strength x4 Soft touch sensation x4 [id number] within normal limits Gait within normal limits without ataxia Incision healing well MRI of the brain reviewed which shows minimal or no residual along the tentorium . This is much improved from a preoperative MRI. The right-sided convexity men ingioma appears stable. Final read pending She is doing well. I think she is on the road to recovery. We reviewed her MRI today in the office. Overall, I think she will continue to improve with time. We need to continue to watch the angioma which was resected as well as the other meningioma on the right convexity with serial MRIs. I am going to have her get a repeat MRI in 1 year with and without contrast and see my excellent nurse pr actitioner, under Lilia Palmer. Please call [phone] with questions or concern Romeo Mcdaniel MD IGHTENING MACHINE FEEDER documented in this encounter Plan of Treatment Order Schedule Name Type Priority Associated Diag noses Expected: 04/17/2019 (Approximate), Expi res: 04/17/2020 MRI HEAD WO/W CONTRAST Imaging Routine Meningi yayo (HCC) documented as of this encounter Visit Diagnoses Diagnosis Meningioma (HCC) - Primary Benign neoplasm of cerebral meninges documented in this encounter
--- OUTSIDE RECORDS SUMMARY | 2019-07-04 13:47 | XMS REPORT | Clinical Summary ---
Author Author [facility] Organization [facility] Address Unknown Phone Unavailable Care Team Providers Care Load Builder Name Role Phone Sherita Mishra MELE PCP Unavailable Source Comments Some departments are not documenting in the electronic medical record. If you d o not see the information that you expected, contact Release of Information in [facility] Information Management department at [phone] for further assistan ce in locating additional records.[facility] Allergies Comments Active Allergy Reactions Severity Noted Date Morphine RASH Medium 11/26/2018 Medications End Date Status Medication Sig Dispensed Refills Start Date Active busPIRone (BUSPAR) 7.5 mg Take 1 tablet 0 /2 tablet by mouth 9 three times daily. Active DEXILANT 60 mg capsule Take 1 0 10/29/2 01 capsule by 9 mouth daily. Active escitalopram oxalate Take 1 tablet 0 (LEXAPRO) 10 mg tablet by mouth 9 daily. Active LINZESS 145 mcg cap Take 1 0 capsule capsule by 9 mouth daily. Active lisinopril-hydrochlorothi Take 1 tablet 0 07/0 3 azide (PRINZIDE, by mouth 9 ZESTORETIC) 10-12.5 mg daily. tablet Active metoprolol XL (TOPROL XL) Take 1 tablet 0 07/0 100 mg extended release by mouth 9 tablet daily. Active ranitidine(+) (ZANTAC) Take 1 tablet 0 //2 01 150 mg tablet by mouth 9 daily. Active gabapentin (NEURONTIN) Take 1 0 11/20/2 01 400 mg capsule capsule by 9 mouth three times daily. Active dexAMETHasone (DECADRON) Taper 26 tablet 0 0 2 mg tablet schedule: 4 9 mg every 8 hours for 2 days, then 4 mg every 12 hours for 2 days, then 2 mg every 12 hours for 2 days, then 2 mg every day for 2 days, then stop Take with food. Active diazePAM (VALIUM) 5 mg Take one-half 10 tablet 0 0 tablet tablet by 9 mouth every 6 hours as needed. Active senna/docusate Take one 0 (SENOKOT-S) 8.6/50 mg tablet by 9 tablet mouth twice daily. To prevent constipation while taking pain medications. Active methocarbamol (ROBAXIN) Take one 40 tablet 0 750 mg tablet tablet by 9 mouth four times daily as needed for Spasms. Active oxyCODONE (ROXICODONE, Take one 56 tablet 0 OXY-IR) 5 mg tablet tablet to 9 three tablets by mouth every 4 hours as needed Active oxyCODONE (ROXICODONE, Take one 75 tablet 0 OXY-IR) 5 mg tablet tablet to 9 three tablets by mouth every 4 hours as needed for pain. Active baclofen (LIORESAL) 10 mg Take 10 mg by 0 tablet mouth twice daily. Active clonazePAM (KLONOPIN) 0.5 Take 0.5 mg 0 mg tablet by mouth twice daily. Active meloxicam (MOBIC) 15 mg Take 15 mg by 0 tablet mouth daily. Active pantoprazole DR Take 40 mg by 0 (PROTONIX) 40 mg tablet mouth daily. Active traMADol (ULTRAM) 50 mg Take 50 mg by 0 tablet mouth every 6 hours as needed for Pain. Active traZODone (DESYREL) 100 Take 100 mg 0 mg tablet by mouth at bedtime daily. Active cariprazine (VRAYLAR) 3 Take by 0 mg cap mouth. Active diclofenac submicronized Take by 0 (ZORVOLEX) 35 mg cap mouth. Active Problems Problem Noted Date Acute blood loss as cause of postoperative anemia Anxiety 12/03/2018 Depression 12/03/2018 HTN (hypertension) 12/03/2018 IBS (irritable bowel syndrome) 12/03/2018 Meningioma 11/26/2018 Encounters Care Team Description Date Type Specialty Romeo Mcdaniel MD Other 05/14/2019 Telephone Neurosurgery Romeo Mcdaniel MD Meningioma (HCC) (Primary Dx) 04/17/2019 Office Visit Neurosurgery Romeo Mcdaniel MD 04/17/2019 Hospital Radiology Encounter from Last 3 Months Family History Medical History Relation Name Comments None Reported Father None Reported Mother Relation Name Status Comments Father Mother Alive Social History Date Tobacco Use Types Packs/Day Years Used Quit: 11/19/2018 Former Smoker Cigarettes 0.5 13 Smokeless Tobacco: Never Used Drinks/Week oz/Week Comments Alcohol Use Never Sex Assigned at Date Recorded Not on file Industry Job Start Date Occupation Not on file Not on file Not on file Travel End Travel History Travel Start No recent travel history available. Last Filed Vital Signs Reading Time Taken Comments Vital Sign 122/90 04/17/2019 1:33 PM LICENSED PHYSICAL THERAPIST Blood Pressure 81 04/17/2019 1:33 PM LICENSED PHYSICAL THERAPIST Pulse 36.9 C (98.5 F) 04/17/2019 1:33 PM LICENSED PHYSICAL THERAPIST Temperature - - Respiratory Rate 100% 12/05/2018 9:35 AM CDT Oxygen Saturation - - Inhaled Oxygen Concentration 68 kg (150 lb) 04/15/2019 8:46 AM LICENSED PHYSICAL THERAPIST Weight 165.1 cm (5' 5") 04/15/2019 8:46 AM LICENSED PHYSICAL THERAPIST Height 24.96 04/15/2019 8:46 AM LICENSED PHYSICAL THERAPIST Body Mass Index Plan of Treatment Health Maintenance Due Date Last Done Comments DTAP/TDAP VACCINES ( - 08/01/1991 Tdap) HIV SCREENING 08/01/1995 PHYSICAL (COMPREHENSIVE) 1998 EXAM CERVICAL CANCER SCREENING 2010 INFLUENZA VACCINE 11/27/2018 Implants Device Identifier Shelf Expiration Date Model / Serial / L ot Implanted Type Area Manufactur er 06/27/2023 [id number] / [id number] / [id number] Patch Dural 2x2in Lyoplant Cranial Brain AE SCULAP Bovine Pericardium [employer] - [id number] Implanted: Qty: 1 on 12/03/2018 by Romeo Mcdaniel MD at [facility] [id number] / NA / NA Mesh Cranial .6mm Large Temporal Skull STAN MURRELL Titanium Latex Free - Sna LP Implanted: Qty: 1 on 12/03/2018 by Romeo Mcdaniel MD at [facility] [id number] / NA / NA Plate Bone Level One Medium Curve Skull ALFONZO GROSS Craniofacial Bur Hole - Sna LP Implanted: Qty: 1 on 12/03/2018 by Romeo Mcdaniel MD at [facility] [id number] / NA / NA Plate Bone Level One Square Skull DIANA Mancia Craniofacial 2x2 Hole Ultra Low - LP Sna Implanted: Qty: 1 on 12/03/2018 by Romeo Mcdaniel MD at [facility] [id number] / NA / NA Screw Bone Level One Titanium Skull AVI ORTA Craniomaxillofacial Drill Free - LP Sna Implanted: Qty: 13 on 12/03/2018 by Romeo Mcdaniel MD at [facility] Procedures Comments Procedure Name Priority Date/Time Associated Diag nosis MRI HEAD WO/W CONTRAST Routine 04/17/2019 Meningi yayo (HCC) 1:09 PM LICENSED PHYSICAL THERAPIST from Last 3 Months Results * MRI HEAD WO/W CONTRAST (04/17/2019 1:09 PM LICENSED PHYSICAL THERAPIST) Specimen Impressions Performed At 1. 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 necessary based on Dx
--- OUTSIDE RECORDS SUMMARY | 2019-07-04 13:47 | XMS REPORT | Encounter Summary ---
Author Author [facility] Organization [facility] Address Unknown Phone Unavailable Care Team Providers Care Clinical Staff Anesthesiologist Name Role Phone Sherita Mishra CLINICAL APPLICATION SPECIALIST PCP Unavailable Reason for Visit * Reason Comments Other Encounter Details Care Team Description Date Type Department Romeo Mcdaniel MD [address] [facility] [address] [place] [address] Other 05/14/2019 Telephone The [facility] [address] [place] [address] Social History Date Tobacco Use [...] * Telephone Encounter - Mary Mora - 05/28/2019 10:32 AM TOP LIFT CUTTER Contacted patient to notify that cannot write a letter/ work form to exc use her from work due to her symptoms. LIFT CUTTER * Telephone Encounter - Mary Mora - 05/14/2019 3:17 PM TOP LIFT CUTTER Patient contacted clinic with c/o of experiencing blurry vision, headaches, and dizzy spells from time to time while working. She asked if she could have anothe r letter/ work form stating that she experiences these symptoms and that this is apart of her recovery. I stated to patient that I would need to speak with prov ider first to see if this would be okay. LIFT CUTTER documented in this encounter Plan of Treatment Not on filedocumented as of this encounter Visit Diagnoses Not on filedocumented in this encounter
--- OUTSIDE RECORDS SUMMARY | 2019-07-04 13:47 | XMS REPORT | Encounter Summary ---
Author Author [facility] Organization [facility] Address Unknown Phone Unavailable Care Team Providers Care Perfumer Name Role Phone Sherita Mishra BIOPROCESS ENGINEER PCP Unavailable Reason for Visit * Reason Comments Pain Encounter Details Care Team Description Date Type Department Liz Kraus MD [address] [place] [address] Pain 03/15/[address] [address] Social History Date Tobacco Use Types [...] encounter Miscellaneous Notes * Telephone Encounter - Liz Kraus MD - 03/15/2019 3:06 PM PNEUMATIC SYSTEM CONVEYOR OPERATOR Patient called because you for the past 3 hours started having severe back of th e neck pain. It is nonradiating and she has not had this kind of pain before. She has no other pains. She has had some chills but she is checked her temperat ure and has not had a fever. She has not been taking any pain medications other medications has been doing very well postoperatively. She has not noticed in n ature, any other symptoms Suspect that this could be musculoskeletal possibly m uscle spasms. Recommended that she try some muscle relaxants, which she has some at home, Tyle nol, and possibly some NSAIDs if all of that does not work. She does not appear to have any meningeal signs based on talking to the patient. MATIC SYSTEM CONVEYOR OPERATOR documented in this encounter Plan of Treatment Not on filedocumented as of this encounter Visit Diagnoses Not on filedocumented in this encounter
--- OUTSIDE RECORDS SUMMARY | 2019-07-04 13:47 | XMS REPORT | Encounter Summary ---
Author Author [facility] Organization [facility] Address Unknown Phone Unavailable Care Team Providers Care [employer] Chief Name Role Phone MishraSmileySherita MELE PCP Unavailable Reason for Referral * Radiology Services (Routine) Referred By Contact Referred To Contact Status Reason Specialty Diagnoses / Procedures Romeo Mcdaniel MD [address] [facility] [address] [place] [address] [facility] M[facility] [address] [place] [address] Authorized Radiology Diagnoses Meningioma (HCC) P rocedures MRI HEAD WO/W CONTRAST Reason for Visit * Radiology Services (Routine) Referred By Contact Referred To Contact Status Reason Specialty Diagnoses / Procedures Romeo Mcdaniel MD [address] [facility] [address] [place] [address] W[facility] Mri [address] [place] [address] Authorized Radiology Diagnoses Meningioma (HCC) P rocedures MRI HEAD WO/W CONTRAST Encounter Details Care Team Description Date Type Department Romeo Mcdaniel MD [address] [facility] [address] [place] [address] [phone] 04/17/2019 [facility] [address] [place] [address] Social History Date Tobacco Use Types Packs/Day [...] history available. documented as of this encounter Medications at Time of Discharge Start Date End Date Medication Sig Dispensed Refills baclofen (LIORESAL) 10 mg Take 10 mg by 0 tablet mouth twice daily. 11/20/2018 busPIRone (BUSPAR) 7.5 mg Take 1 tablet 0 tablet by mouth three times daily. cariprazine (VRAYLAR) 3 Take by 0 mg cap mouth. clonazePAM (KLONOPIN) 0.5 Take 0.5 mg 0 mg tablet by mouth twice daily. 12/05/2018 dexAMETHasone (DECADRON) Taper 26 tablet 0 2 mg tablet schedule: 4 mg every 8 hours for 2 days, then 4 mg every 12 hours for 2 days, then 2 mg every 12 hours for 2 days, then 2 mg every day for 2 days, then stop Take with food. 10/29/2018 DEXILANT 60 mg capsule Take 1 0 capsule by mouth daily. 12/05/2018 diazePAM (VALIUM) 5 mg Take one-half 10 tablet 0 tablet tablet by mouth every 6 hours as needed. diclofenac submicronized Take by 0 (ZORVOLEX) 35 mg cap mouth. 11/20/2018 escitalopram oxalate Take 1 tablet 0 (LEXAPRO) 10 mg tablet by mouth daily. 11/20/2018 gabapentin (NEURONTIN) Take 1 0 400 mg capsule capsule by mouth three times daily. 10/29/2018 LINZESS 145 mcg cap Take 1 0 capsule capsule by mouth daily. 10/29/2018 lisinopril-hydrochlorothi Take 1 tablet 0 azide (PRINZIDE, by mouth ZESTORETIC) 10-12.5 mg daily. tablet meloxicam (MOBIC) 15 mg Take 15 mg by 0 tablet mouth daily. 12/05/2018 methocarbamol (ROBAXIN) Take one 40 tablet 0 750 mg tablet tablet by mouth four times daily as needed for Spasms. 10/29/2018 metoprolol XL (TOPROL XL) Take 1 tablet 0 100 mg extended release by mouth tablet daily. 12/07/2018 oxyCODONE (ROXICODONE, Take one 56 tablet 0 OXY-IR) 5 mg tablet tablet to three tablets by mouth every 4 hours as needed 12/07/2018 oxyCODONE (ROXICODONE, Take one 75 tablet 0 OXY-IR) 5 mg tablet tablet to three tablets by mouth every 4 hours as needed for pain. pantoprazole DR Take 40 mg by 0 (PROTONIX) 40 mg tablet mouth daily. 10/29/2018 ranitidine(+) (ZANTAC) Take 1 tablet 0 150 mg tablet by mouth daily. 12/05/2018 senna/docusate Take one 0 (SENOKOT-S) 8.6/50 mg tablet by tablet mouth twice daily. To prevent constipation while taking pain medications. traMADol (ULTRAM) 50 mg Take 50 mg by 0 tablet mouth every 6 hours as needed for Pain. traZODone (DESYREL) 100 Take 100 mg 0 mg tablet by mouth at bedtime daily. documented as of this encounter Plan of Treatment Not on filedocumented as of this encounter Procedures Comments Procedure Name Priority Date/Time Associated Diag nosis MRI HEAD WO/W CONTRAST Routine 04/17/2019 Meningi yayo (HCC) 1:09 PM RN LICENSED PRACTICAL documented in this encounter Results * MRI HEAD WO/W CONTRAST (04/17/2019 1:09 PM RN LICENSED PRACTICAL) Specimen Impressions Performed At 1. Prior left [...] Interface, Radiant Results - 04/17/2019 2:03 PM RN LICENSED PRACTICAL EXAM: MRI BRAIN HISTORY: , S/P RESECTION [...] this encounter Visit Diagnoses Diagnosis Meningioma (HCC) Benign neoplasm of cerebral meninges documented in this encounter Administered Medications Action Date Dose Rate Site Medication Order MAR Action 04/17/2019 2:00 PM RN LICENSED PRACTICAL 15 mL gadobenate dimeglumine (MULTIHANCE) Given injection 15 mL 15 mL, Intravenous, ONCE, 1 dose, Sat04/17/19 at 1400, NOTE: This is a HIGH ALERT Medication., documented in this encounter
--- OUTSIDE RECORDS SUMMARY | 2019-07-04 13:48 | XMS REPORT ---
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 [facility] (54125) Exp date 11/12/20 (no code) [facility] (42117) Lot # [id number] (no code) [facility] (37757) No panel information on 2018-03-31 BLO trace-intact (no code) [facility] ([id number]) KET 07/2018~clear~ye (no code) [facility] llow~none~neagti [facility] ve~negative~nega [facility] tive (46899) RODOLFO no information (no code) [facility] (43251) Lot # [id number] (no code) [facility] (31869) pH (Bld) 6.0 [pH] (no code) 7.38 - 7.42 [pH] [facility] (16589) Protein (U) no information (no code) 0 - 20 mg/dL [facility] [Mass/Vol] [facility] (81962) SG 1.015 (no code) [facility] (30192) URO 0.2 (no code) [facility] (54871) No panel information on 2018-01-16 Albumin mass 3.9 g/dL (N) 3.4 - 5.4 g/dL [facility] (95104) Albumin/Globulin 1.6 (N) [facility] lt mass ratio [facility] (28735) ALP enzyme 69 U/L (N) 44 - 147 U/L [facility] alth act/vol [facility] (30032) ALT enzyme 8 U/L (N) 4 - 40 U/L [facility] act/vol [facility] (38097) AST enzyme 9 U/L (L) 10 - 34 U/L [facility] act/vol [facility] (40044) Basophils Auto 0.071 10*3/uL (N) 0 - 0.3 10*3/uL [facility] #/vol (Bld) [facility] (56156) Basophils/100 0.6 % (N) 0.5 - 1 % [facility] alth WBC Auto (Bld) [facility] (17030) Bilirubin mass 0.4 mg/dL (N) 0.1 - 1.2 mg/dL [facility] (77089) Calcium mass 8.8 mg/dL (N) 8.5 - 10.2 mg/dL [facility] (11321) Chloride molar 107 mmol/L (N) 95 - 106 mmol/L [facility] (93316) Cholesterol in 37 mg/dL (L) [facility] HDL mass [facility] (47288) Cholesterol in 113 (H) [facility] LDL mass conc [facility] (72836) Cholesterol mass 171 mg/dL (N) 180 - 200 mg/dL [facility] (99198) Cholesterol non 134 (H) [facility] HDL mass conc [facility] (35454) Cholesterol.tota 4.6 (N) [facility] lt l/Cholesterol in [facility] HDL mass ratio [facility] (69873) CO2 molar conc 28 mmol/L (N) 23 - 29 mmol/L [facility] (09070) Creatinine mass 0.62 mg/dL (N) [facility] conc [facility] (68144) CRP High 1.1 mg/L (N) 0 - 2 mg/L [facility] sensitivity [facility] method mass conc [facility] (87051) Eosinophils Auto 0.226 10*3/uL (N) 0.05 - 0.5 [facility] #/vol (Bld) 10*3/uL [facility] (79761) Eosinophils/100 1.9 % (N) 1 - 4 % [facility] WBC Auto (Bld) [facility] (61374) Erythrocyte 11.8 % (N) 11.6 - 14.6 % [facility] Auto Ratio [facility] (RBC) (45801) GFR/1.73 sq M 134 (N) 90 - 120 [facility] alth predicted among mL/min/{1.73_m2} mL/min/{1.73_m2} Center o f [facility] blacks MDRD vol [facility] rate/area (97235) (S/P/Bld) GFR/1.73 sq 115 (N) 90 - 120 [facility] M.predicted MDRD mL/min/{1.73_m2} mL/min/{1.73_m2} [facility] vol rate/area [facility] (98575) Globulin 2.5 (N) [facility] h Calculated mass [facility] (S) [facility] (57968) Glucose mass 90 mg/dL (N) 60 - 125 mg/dL [facility] (05438) Hematocrit Auto 40.6 % (N) 36.1 - 50.3 % Communi ty Health Volume Fraction [facility] (Bld) [facility] (97606) Hemoglobin mass 13.5 g/dL (N) 12.1 - 17.2 g/dL [facility] conc (Bld) [facility] (57040) Lymphocytes Auto 3.641 10*3/uL (N) 0.9 - 2.9 [facility] #/vol (Bld) 10*3/uL [facility] (59662) Lymphocytes/100 30.6 % (N) 20 - 40 % [facility] Health WBC Auto (Bld) [facility] (40025) MCH Auto Entitic 30.7 pg (N) 27 - 31 pg [facility] Health mass (RBC) [facility] (08088) MCHC Auto mass 33.3 g/dL (N) 32 - 36 g/dL [facility] Health conc (RBC) [facility] (73182) MCV Auto Entitic 92.3 fL (N) 80 - 100 fL [facility] Health volume (RBC) [facility] (11501) Monocytes Auto 0.928 10*3/uL (N) 0.3 - 0.9 [facility] Health #/vol (Bld) 10*3/uL [facility] (06107) Monocytes/100 7.8 % (N) 2 - 8 % [facility] He alth WBC Auto (Bld) [facility] (03491) Neutrophils Auto 7.033 10*3/uL (N) 1.7 - 7 10*3/uL [facility] #/vol (Bld) [facility] (04354) Neutrophils/100 59.1 % (N) 40 - 60 % [facility] Health WBC Auto (Bld) [facility] (82488) Platelet mean 9.5 fL (N) 7.2 - 11.7 fL [facility] Health volume Auto [facility] Entitic volume [facility] (Bld) (24198) Platelets Auto 313 10*3/uL (N) 150 - 450 [facility] #/vol (Bld) 10*3/uL [facility] (86818) Potassium molar 3.7 mmol/L (N) 3.7 - 5.2 mmol/L [facility] (72415) Protein mass 6.4 g/dL (N) 6.4 - 8.3 g/dL [facility] (15712) RBC Auto #/vol 4.40 10*6/uL (N) 4.2 - 6.1 [facility] (d) 10*6/uL [facility] (88765) Sodium molar 139 mmol/L (N) 135 - 145 mmol/L [facility] (61914) Thyrotropin Qn 1.46 m[IU]/L (N) 0.4 - 4 m[IU]/L [facility] (65833) Triglyceride 107 mg/dL (N) 0 - 150 mg/dL [facility] (98408) Urea nitrogen 12 mg/dL (N) 7 - 20 mg/dL [facility] (19925) Urea NOT APPLICABLE (no code) [facility] h nitrogen/Creatin [facility] (18822) WBC Auto #/vol 11.9 10*3/uL (H) 3.5 - 10.5 [facility] (d) 10*3/uL [facility] (81015) venous blood hemoglobin measurement (mass/volume) on 2017-12-30 Hemoglobin mass 14.6 g/dL (no code) 12.1 - 17.2 g/dL [facility] ([facility]) [facility] () urine urobilinogen measurement by automated test strip (mass/volume) on 2017-12-30 Urobilinogen 1 (no code) [facility] Test strip [facility] (08250) urine total bilirubin detection by test strip on 2017-12-30 Bilirubin Ql (U) no information (no code) Via [facility] (61501) urine protein assay by test strip, semi-quantitativ e on 2017-12-30 Protein Test no information (no code) Via [facility] strip (U) [facility] (50630) urine ph measurement by test strip on 2017-12-30 pH Test strip 7 [pH] (no code) 4.6 - 8 [pH] [facility] (45255) urine nitrite detection by test strip on 2017-12-30 Nitrite Test no information (no code) Via [facility] strip () [facility] (05706) urine ketones detection by automated test strip on 2017-12-30 Ketones no information (no code) [facility] Automated test Hospital strip Ql (U) [facility] (74433) urine glucose detection by automated test strip on 2017-12-30 Glucose no information (no code) [facility] Automated test Hospital strip Ql () [place] (06071) urine color determination on 2017-12-30 Color Nom (U) YELLOW (no code) Via [facility] (01418) urine clarity determination on 2017-12-30 Clarity Nom (U) SLIGHTLY CLOUDY (no code) [facility] (21602) thyroid stimulating hormone on 2017-12-30 Thyrotropin Qn 1.25 m[IU]/L (no code) 0.4 - 4 m[IU]/L Via [facility] (37065) squamous epithelial cells detection in urine sediment by light microscopy on 2017-12-30 Epithelial no information (no code) [facility] cells.squamous [facility] Ql (Urine [facility] sed) (08277) specific gravity of urine by test strip on 2017-12-30 Specific gravity 1.015 (*) [facility] Relative Density [facility] () [place] (16657) serum or plasma urea nitrogen/creatin ine mass ratio on 2017-12-30 Urea 14 mg/mg (no code) 6 - 22 mg/mg [facility] nitrogen/Creatin Hospital ine mass ratio [facility] (07424) serum or plasma urea nitrogen measurement (mass/volume) on 2017-12-30 Urea nitrogen 9 mg/dL (no code) 7 - 20 mg/dL Via [facility] (82617) serum or plasma troponin i.cardiac measurement (mass/volume) on 2017-12-30 Troponin no information (no code[facility] (07165) serum or plasma total bilirubin measurement (mass/volume) on 2017-12-30 Bilirubin mass 0.4 mg/dL (no code) 0.1 - 1.2 mg/dL Via [facility] (76757) serum or plasma sodium measurement (moles/volume) on 2017-12-30 Sodium molar 137 mmol/L (no code) 135 - 145 mmol/L Via [facility] (26849) serum or plasma protein measurement (mass/volume) on 2017-12-30 Protein mass 6.9 g/dL (no code) 6.4 - 8.3 g/dL Via [facility] (64918) serum or plasma potassium measurement (moles/volume) on 2017-12-30 Potassium molar 3.5 mmol/L (L) 3.7 - 5.2 mmol/L Via [facility] () serum or plasma glucose measurement (mass/volume) on 2017-12-30 Glucose mass 125 mg/dL (H) 60 - 125 mg/dL Via [facility] () serum or plasma creatinine measurement with calculation of estimated glomerular filtration rate on 2017-12-30 GFR/1.73 sq M no information (no code) Via [facility] non-blacks [facility] vol rate/area () (S/P/Bld) serum or plasma creatinine measurement (mass/volume) on 2017-12-30 Creatinine mass 0.63 mg/dL (no code) Via [facility] () serum or plasma chloride measurement (moles/volume) on 2017-12-30 Chloride molar 102 mmol/L (no code) 95 - 106 mmol/L Via [facility] (70086) serum or plasma calcium measurement (mass/volume) on 2017-12-30 Calcium mass 9.3 mg/dL (no code) 8.5 - 10.2 mg/dL Via [facility] (18784) serum or plasma c reactive protein measurement (mass/volume) on 2017-12-30 CRP mass conc 0.20 mg/L (no code) 0 - 8 mg/L Via [facility] (58216) serum or plasma aspartate aminotransferase measurement (enzymatic activity/volume) on 2017-12-30 AST enzyme 10 U/L (no code) 10 - 34 U/L [facility] (45317) serum or plasma anion gap determination (moles/volume) on 2017-12-30 Anion gap 3 11 mmol/L (no code) 3 - 11 mmol/L [facility] molar [facility] (81256) serum or plasma alkaline phosphatase measurement (enzymatic activity/volume) on 2017-12-30 ALP enzyme 77 U/L (no code) 44 - 147 U/L [facility] act/[facility] (52146) serum or plasma albumin measurement (mass/volume) on 2017-12-30 Albumin mass 4.2 g/dL (no code) 3.4 - 5.4 g/dL Via [facility] (09275) serum or plasma alanine aminotransferase measurement (enzymatic activity/volume) on 2017-12-30 ALT enzyme 12 U/L (no code) 4 - 40 U/L [facility] act/[facility] (67599) renal epithelial cells detection in urine sediment by light microscopy on 2017-12-30 Epithelial NONE (no code) [facility] cells.renal LM Hospital Ql (Urine sed) [facility] (27523) mucus detection in urine sediment by light microscopy on 2017-12-30 Mucus LM Ql no information (no code) [facility] (Urine sed) [facility] (19616) magnesium on 2017-12-30 Magnesium mass 2.4 mg/dL (no code) 1.7 - 2.2 mg/dL Via [facility] (39852) leukocyte esterase on 2017-12-30 Leukocyte no information (no code) [facility] esterase Test Hospital strip Ql (U) [facility] (17912) erythrocytes detection in urine sediment by light microscopy on 2017-12-30 RBC LM Ql (Urine no information (no code) [facility] sed) [facility] (87172) crystals detection in urine sediment by light microscopy on 2017-12-30 Crystals LM Ql PRESENT (*) [facility] (Urine sed) [facility] (93822) complete urinalysis with reflex to culture on 2017-12-30 Complete NO (no code) [facility] urinalysis with Hospital reflex to [facility] culture (30536) casts detection in urine sediment by light microscopy on 2017-12-30 Casts LM Ql NONE (no code) [facility] (Urine sed) [facility] (06372) carbon dioxide on 2017-12-30 CO2 molar conc 24 mmol/L (no code) 23 - 29 mmol/L Via [facility] () calcium measurement corrected for albumin on 2017-12-30 Calcium mass 9.1 mg/dL (no code) 8.5 - 10.2 mg/dL Via [facility] conc [facility] (05432) blood neutrophils automated count (number/volume) on 2017-12-30 Neutrophils Auto 8.0 10*3/uL (H) 1.7 - 7 10*3/uL Via [facility] #/vol (Bld) [facility] (32220) blood monocytes/100 leukocytes on 2017-12-30 Monocytes/100 8 % (no code) 2 - 8 % [facility] WBC Auto (Bld) [facility] () blood monocytes automated count (number/volume) on 2017-12-30 Monocytes Auto 1.0 10*3/uL (no code) 0.3 - 0.9 [facility] #/vol (Bld) 10*3/uL [facility] (75800) blood lymphocytes automated count (number/volume) on 2017-12-30 Lymphocytes Auto 3.2 10*3/uL (no code) 0.9 - 2.9 Via [facility] ti #/vol (Bld) 10*3/uL [facility] (77666) blood leukocytes automated count (number/volume) on 2017-12-30 WBC Auto #/vol 12.4 10*3/uL (H) 3.5 - 10.5 Via [facility] i (Bld) 10*3/uL [facility] (77912) blood hematocrit (volume fraction) on 2017-12-30 Hematocrit Auto 40 % (no code) 36.1 - 50.3 % Via [facility] Volume Fraction Hospital (Bld) [facility] (66737) blood erythrocytes automated count (number/volume) on 2017-12-30 RBC Auto #/vol 4.62 10*6/uL (no code) 4.2 - 6.1 Via [facility] i (Bld) 10*6/uL [facility] (05455) bacteria detection in urine sediment by light microscopy on 2017-12-30 Bacteria LM Ql FEW (*) [facility] (Urine sed) [facility] (67328) automated urine sediment leukocyte count by microscopy (number/high power field) on 2017-12-30 WBC LM.HPF NONE (no code) Via [facility] #/area (Urine Hospital sed) [facility] (30055) automated urine sediment erythrocyte count by microscopy (number/high power field) on 2017-12-30 RBC LM.HPF NONE (no code) Via [facility] #/area (Urine Hospital sed) [facility] (28616) automated erythrocyte mean corpuscular volume on 2017-12-30 MCV Auto Entitic 87 fL (no code) 80 - 100 fL Via Ch[facility] sti volume (RBC) [facility] (70080) automated erythrocyte mean corpuscular hemoglobin concentration measurement (mass/volume) on 2017-12-30 MCHC Auto mass 36 g/dL (no code) 32 - 36 g/dL Via [facility] ti conc (RBC) [facility] (19741) automated erythrocyte mean corpuscular hemoglobin (mass per erythrocyte) on 2017-12-30 MCH Auto Entitic 32 pg (no code) 27 - 31 pg Via [facility] ti mass (RBC) [facility] (74722) automated erythrocyte distribution width ratio on 2017-12-30 Erythrocyte 12.1 % (no code) 11.6 - 14.6 % Via [facility] distribution Hospital width Auto Ratio [facility] (RBC) (49371) automated eosinophil count on 2017-12-30 Eosinophils Auto 0.3 10*3/uL (no code) 0.05 - 0.5 Via [facility] ti #/vol (Bld) 10*3/uL [facility] (64324) automated blood platelet mean volume measurement on 2017-12-30 Platelet mean 9.2 fL (no code) 7.2 - 11.7 fL Via [facility] ti volume Auto Hospital Entitic volume [facility] (Bld) (40272) automated blood platelet count (count/volume) on 2017-12-30 Platelets Auto 341 10*3/uL (no code) 150 - 450 Via [facility] #/vol (Bld) 10*3/uL [facility] (57076) automated blood neutrophils/100 leukocytes on 2017-12-30 Neutrophils/100 64 % (no code) 40 - 60 % Via [facility] i WBC Auto (Bld) [facility] (77145) automated blood lymphocytes/100 leukocytes on 2017-12-30 Lymphocytes/100 26 % (no code) 20 - 40 % Via [facility] i WBC Auto (Bld) [facility] (79894) automated blood eosinophils/100 leukocytes on 2017-12-30 Eosinophils/100 2 % (no code) 1 - 4 % [facility] WBC Auto (Bld) [facility] (06310) automated blood basophils/100 leukocytes on 2017-12-30 Basophils/100 0 % (no code) 0.5 - 1 % [facility] WBC Auto (d) [facility] (77052) automated blood basophil count (count/volume) on 2017-12-30 Basophils Auto 0.0 10*3/uL (no code) 0 - 0.3 10*3/uL Via risti #/vol (Bld) [facility] (64587) amorphous sediment detection in urine sediment by light microscopy on 2017-12-30 Amorphous LARGE JUANITO (*) [facility] sediment [facility] (50095[facility] venous blood hemoglobin measurement (mass/volume) on 2017-12-11 Hemoglobin (HGB) 13.8 g/dL (no code) 12.1 - 17.2 g/dL Via [facility] () urine urobilinogen measurement by automated test strip (mass/volume) on 2017-12-11 Urine, 1 (no code) [facility] urobilinogen [facility] (32263) urine total bilirubin detection by test strip on 2017-12-11 Urine, bilirubin no information (no code) Via [facility] (31658) urine protein assay by test strip, semi-quantitativ e on 2017-12-11 Urine, protein no information (no code) Via [facility] (29257) urine ph measurement by test strip on 2017-12-11 Urine, pH 6.5 [pH] (no code) 4.6 - 8 [pH] Via [facility] (72517) urine nitrite detection by test strip on 2017-12-11 Urine, nitrite no information (no code) Via [facility] (88363) urine ketones detection by automated test strip on 2017-12-11 Urine, ketones no information (no code) Via [facility] (49867) urine glucose detection by automated test strip on 2017-12-11 Urine, glucose no information (no code) Via [facility] (85421) urine color determination on 2017-12-11 Urine, color YELLOW (no code) Via [facility] (83024) urine clarity determination on 2017-12-11 Urine, clarity CLEAR (no code) Via [facility] (55526) squamous epithelial cells detection in urine sediment by light microscopy on 2017-12-11 Urine, squamous no information (*) [facility] cells presence [facility] in sediment [facility] (45429) specific gravity of urine by test strip on 2017-12-11 Urine, specific 1.020 (no code) Via [facility] (90908) serum or plasma urea nitrogen/creatin ine mass ratio on 2017-12-11 BUN/Creatinine 18 mg/mg (no code) 6 - 22 mg/mg [facility] Ratio [facility] (71057) serum or plasma urea nitrogen measurement (mass/volume) on 2017-12-11 Urea nitrogen 11 mg/dL (no code) 7 - 20 mg/dL Via [facility] (03191) serum or plasma total bilirubin measurement (mass/volume) on 2017-12-11 Bilirubin 0.5 mg/dL (no code) 0.1 - 1.2 mg/dL [facility] (total) [facility] (77415) serum or plasma sodium measurement (moles/volume) on 2017-12-11 Sodium 138 mmol/L (no code) 135 - 145 mmol/L [facility] (95992) serum or plasma protein measurement (mass/volume) on 2017-12-11 Protein 6.4 g/dL (no code) 6.4 - 8.3 g/dL Via [facility] (25936) serum or plasma potassium measurement (moles/volume) on 2017-12-11 Potassium 3.4 mmol/L (L) 3.7 - 5.2 mmol/L [facility] (54004) serum or plasma glucose measurement (mass/volume) on 2017-12-11 Glucose 96 mg/dL (no code) 60 - 125 mg/dL [facility] (46743) serum or plasma creatinine measurement with calculation of estimated glomerular filtration rate on 2017-12-11 eGFR (non-black) no information (no code) Via [facility] (76037) serum or plasma creatinine measurement (mass/volume) on 2017-12-11 Creatinine 0.62 mg/dL (no code) Via [facility] (78811) serum or plasma chloride measurement (moles/volume) on 2017-12-11 Chloride 104 mmol/L (no code) 95 - 106 mmol/L Via [facility] ([id number]) serum or plasma aspartate aminotransferase measurement (enzymatic activity/volume) on 2017-12-11 Aspartate 11 U/L (no code) 10 - 34 U/L Via [facility] (AST) [place] ([id number]) serum or plasma anion gap determination (moles/volume) on 2017-12-11 Anion gap 10 mmol/L (no code) 3 - 11 mmol/L Via [facility] (09426) serum or plasma amylase measurement (enzymatic activity/volume) on 2017-12-11 Amylase 31 U/L (no code) 40 - 140 U/L Via [facility] (91444) serum or plasma alkaline phosphatase measurement (enzymatic activity/volume) on 2017-12-11 Alkaline 70 U/L (no code) 44 - 147 U/L Via [facility] phosphatase [facility] (ALP) [place] ([id number]) serum or plasma albumin measurement (mass/volume) on 2017-12-11 Albumin 4.0 g/dL (no code) 3.4 - 5.4 g/dL Via [facility] (84257) serum or plasma alanine aminotransferase measurement (enzymatic activity/volume) on 2017-12-11 Alanine 10 U/L (no code) 4 - 40 U/L Via [facility] (ALT) [place] ([id number]) mucus detection in urine sediment by light microscopy on 2017-12-11 Urine, mucus LARGE (*) Via [facility] presence in [facility] sediment [place] ([id number]) lipase on 2017-12-11 Lipase 24 U/L (no code) 10 - 73 U/L Via [facility] (03586) leukocyte esterase on 2017-12-11 Urine, leukocyte no information (no code) Via [facility] esterase [facility] (15988) erythrocytes detection in urine sediment by light microscopy on 2017-12-11 Urine, no information (no code) Via [facility] erythrocytes [facility] (74072) crystals detection in urine sediment by light microscopy on 2017-12-11 Urine, crystals NONE (no code) Via [facility] presence in [facility] sediment [place] ([id number]) complete urinalysis with reflex to culture on 2017-12-11 Complete NO (no code) Via [facility] urinalysis with Hospital reflex to [facility] culture ([id number]) casts detection in urine sediment by light microscopy on 2017-12-11 Urine, casts in NONE (no code) Via [facility] (58512) carbon dioxide on 2017-12-11 CO2 24 mmol/L (no code) 23 - 29 mmol/L Via [facility] (80984) calcium measurement corrected for albumin on 2017-12-11 Calcium 8.8 mg/dL (no code) 8.5 - 10.2 mg/dL Via [facility] sti [facility] (02052) blood neutrophils automated count (number/volume) on 2017-12-11 Neutrophils 5.6 10*3/uL (no code) 1.7 - 7 10*3/uL Via [facility] (43191) blood monocytes/100 leukocytes on 2017-12-11 Monocytes/100 10 % (no code) 2 - 8 % Via [facility] leukocytes [facility] (69083) blood monocytes automated count (number/volume) on 2017-12-11 Monocytes 1.0 10*3/uL (no code) 0.3 - 0.9 Via [facility] 10*3/uL [facility] (86443) blood lymphocytes automated count (number/volume) on 2017-12-11 Lymphocytes 3.0 10*3/uL (no code) 0.9 - 2.9 Via [facility] 10*3/uL [facility] (08686) blood leukocytes automated count (number/volume) on 2017-12-11 WBC (Leukocytes) 9.9 10*3/uL (no code) 3.5 - 10.5 Via [facility] 10*3/uL [facility] (37409) blood hematocrit (volume fraction) on 2017-12-11 Hematocrit (HCT) 40 % (no code) 36.1 - 50.3 % Via [facility] (59430) blood erythrocytes automated count (number/volume) on 2017-12-11 Erythrocytes 4.49 10*6/uL (no code) 4.2 - 6.1 Via [facility] (RBC) 10*6/uL [facility] (08939) bacteria detection in urine sediment by light microscopy on 2017-12-11 Urine, bacteria TRACE (no code) Via [facility] in sediment [facility] (33726) automated urine sediment leukocyte count by microscopy (number/high power field) on 2017-12-11 Urine, NONE (no code) [facility]37734[facility] automated urine sediment erythrocyte count by microscopy (number/high power field) on 2017-12-11 Urine, NONE (no code) Via [facility] erythrocytes in [facility] sediment by [facility] (54086) automated erythrocyte mean corpuscular volume on 2017-12-11 MCV 89 fL (no code) 80 - 100 fL Via [facility] (87638) automated erythrocyte mean corpuscular hemoglobin concentration measurement (mass/volume) on 2017-12-11 MCHC 35 g/dL (no code) 32 - 36 g/dL Via [facility] (01594) automated erythrocyte mean corpuscular hemoglobin (mass per erythrocyte) on 2017-12-11 MCH 31 pg (no code) 27 - 31 pg Via [facility] (20010) automated erythrocyte distribution width ratio on 2017-12-11 RDW-CA 12.5 % (no code) 11.6 - 14.6 % Via [facility] (97551) automated eosinophil count on 2017-12-11 Eosinophils 0.3 10*3/uL (no code) 0.05 - 0.5 Via [facility] 10*3/uL [facility] (83795) automated blood platelet mean volume measurement on 2017-12-11 Platelet mean 9.5 fL (no code) 7.2 - 11.7 fL Via [facility] (PM[facility]) [facility] (50998) automated blood platelet count (count/volume) on 2017-12-11 Platelets 328 10*3/uL (no code) 150 - 450 Via [facility] 10*3/uL [facility] (57347) automated blood neutrophils/100 leukocytes on 2017-12-11 Neutrophils/100 57 % (no code) 40 - 60 % [facility] leukocytes [facility] (42176) automated blood lymphocytes/100 leukocytes on 2017-12-11 Lymphocytes/100 30 % (no code) 20 - 40 % [facility] leukocytes [facility] (07970) automated blood eosinophils/100 leukocytes on 2017-12-11 Eosinophils/100 3 % (no code) 1 - 4 % [facility] leukocytes [facility] (06470) automated blood basophils/100 leukocytes on 2017-12-11 Basophils/100 1 % (no code) 0.5 - 1 % Via [facility] (36849) automated blood basophil count (count/volume) on 2017-12-11 Basophils 0.1 10*3/uL (no code) 0 - 0.3 10*3/uL Via [facility] (47740) No panel information on 2016-09-04 Albumin 4.3 g/dL (no code) 3.4 - 5.4 g/dL 09-04-2016 Not Nova ilable [Mass/Vol] 09:590400 (73573) Albumin/Globulin 1.9 {ratio} (no code) 1 - 2.5 {ratio} 7 Not Available [Mass ratio] 09:590400 (03983) ALP [Catalytic 76 U/L (no code) 44 - 147 U/L 09-04-2016 Not Available activity/Vol] 09:040 (15170) ALT [Catalytic 13 U/L (no code) 4 - 40 U/L 09-04-2016 Not Av ailable activity/Vol] 09:59040 (94979) AST [Catalytic 14 U/L (no code) 10 - 34 U/L 09-04-2016 Not A vailable activity/Vol] 09:590400 (75210) Basophils (Bld) 0.0 10*3/uL (no code) 0 - 0.3 10*3/uL 09-04-2016 Not Available [#/Vol] 09:100400 (31044) Basophils/100 0 % (no code) 0.5 - 1 % 09-04-2016 Not Avai lable WBC (Bld) 09:100 (11250) Bilirubin 0.5 mg/dL (no code) 0.1 - 1.2 mg/dL 09-04-2016 Not Av ailable [Mass/Vol] 09:590400 (21654) Calcium 8.9 mg/dL (no code) 8.5 - 10.2 mg/dL 09-04-2016 Not A vailable [Mass/Vol] 09:59040 (18753) Chloride 101 mmol/L (no code) 95 - 106 mmol/L 09-04-2016 Not A vailable [Moles/Vol] 09:59 (77588) CO2 [Moles/Vol] 25 mmol/L (no code) 23 - 29 mmol/L 09-04-2016 N ot Available 09: (96255) Creatinine 0.61 mg/dL (no code) 09-04-2016 Not Available [Mass/Vol] 09: (55451) Eosinophils 0.3 10*3/uL (no code) 0.05 - 0.5 09-04-2016 Not Nova ilable (Bld) [#/Vol] 10*3/uL 09: (01094) Eosinophils/100 3 % (no code) 1 - 4 % 09-04-2016 Not Av ailable WBC (Bld) 09: () Erythrocyte 13.0 % (no code) 11.6 - 14.6 % 09-04-2016 Not Av ailable distribution 09: () width (RBC) [Ratio] GFR/1.73 sq M 135 (no code) 90 - 120 09-04-2016 Not Avai lable predicted among mL/min/{1.73_m2} mL/min/{1.73_m2} 09: (62463) blacks MDRD (S/P/Bld) [Vol rate/Area] GFR/1.73 sq M 117 (no code) 90 - 120 09-04-2016 Not Avai lable predicted among mL/min/{1.73_m2} mL/min/{1.73_m2} 09: (60346) non-blacks MDRD (S/P/Bld) [Vol rate/Area] Globulin (S) 2.3 g/dL (no code) 2 - 3.5 g/dL 09-04-2016 Not Av ailable [Mass/Vol] 09: (60845) Glucose 87 mg/dL (no code) 60 - 125 mg/dL 09-04-2016 Not Nova ilable [Mass/Vol] 09: (56672) Hematocrit (Bld) 41.3 % (no code) 36.1 - 50.3 % 09-04-2016 N ot Available [Volume 09: () fraction] Hemoglobin (Bld) 13.7 g/dL (no code) 12.1 - 17.2 g/dL 09-04-2016 Not Available [Mass/Vol] 09:100 (59691) Immature 0.0 10*3/uL (no code) 0 - 0.2 10*3/uL 09-04-2016 Not Available granulocytes 09:0 (93837) (Bld) [#/Vol] Immature 0 % (no code) 0 - 0.5 % 09-04-2016 Not Availabl e granulocytes/100 09:0400 (32794) WBC (Bld) Lymphocytes 3.3 10*3/uL (H) 0.9 - 2.9 09-04-2016 Not Avai lable (Bld) [#/Vol] 10*3/uL 09:100400 (06526) Lymphocytes/100 32 % (no code) 20 - 40 % 09-04-2016 Not Av ailable WBC (Bld) 09: (61557) MCH (RBC) 30.3 pg (no code) 27 - 31 pg 09-04-2016 Not Availab le [Entitic mass] 09:0 (96812) MCHC (RBC) 33.2 g/dL (no code) 32 - 36 g/dL 09-04-2016 Not Avai lable [Mass/Vol] 09:100400 (63962) MCV (RBC) 91 fL (no code) 80 - 100 fL 09-04-2016 Not Availa ble [Entitic vol] 09:0 (27619) Monocytes (Bld) 0.9 10*3/uL (no code) 0.3 - 0.9 09-04-2016 Not Available [#/Vol] 10*3/uL 09:100400 (91397) Monocytes/100 9 % (no code) 2 - 8 % 09-04-2016 Not Avai lable WBC (Bld) 09:0400 (14978) Neutrophils 5.7 10*3/uL (no code) 1.7 - 7 10*3/uL 09-04-2016 No t Available (Bld) [#/Vol] 09:100400 (60656) Neutrophils/100 56 % (no code) 40 - 60 % 09-04-2016 Not Av ailable WBC (Bld) 09:100400 (20584) Platelets (Bld) 367 10*3/uL (no code) 150 - 450 09-04-2016 Not Available [#/Vol] 10*3/uL 09:040 (34869) Potassium 4.5 mmol/L (no code) 3.7 - 5.2 mmol/L 09-04-2016 Not Available [Moles/Vol] 09:590400 (97053) Protein 6.6 g/dL (no code) 6.4 - 8.3 g/dL 09-04-2016 Not Nova ilable [Mass/Vol] 09:590400 (31999) RBC (Bld) 4.52 10*6/uL (no code) 4.2 - 6.1 09-04-2016 Not Avail able [#/Vol] 10*6/uL 09: (54136) Sodium 140 mmol/L (no code) 135 - 145 mmol/L 09-04-2016 Not Available [Moles/Vol] 09:590400 (50970) TSH Qn 2.110 (no code) 09-04-2016 Not Available 09:00040 (82858) Urea nitrogen 8 mg/dL (no code) 7 - 20 mg/dL 09-04-2016 Not A vailable [Mass/Vol] 09:590400 (98879) Urea 13 mg/mg (no code) 6 - 22 mg/mg 09-04-2016 Not Avail able nitrogen/Creatin 09:590400 (51390) ine [Mass ratio] WBC (Bld) 10.3 10*3/uL (no code) 3.5 - 10.5 09-04-2016 Not Avai lable [#/Vol] 10*3/uL 09:0400 (47107) Vital Signs Vital Sign Value Interpretation Reference Date Time Care Prov ider Facility (Normalized) (Normalized) Range BMI (Body Mass 25.54 kg/m2 (no code) 15 - 25 kg/m2 06-27-2018 Dannielle MILLICENT LADD Community Index) 09:00-0500 61858 [facility] (47343) BMI (Body Mass 25.54 kg/m2 (no code) 15 - 25 kg/m2 06-13-2018 Dannielle LADD Community Index) 09:00-[address] [place] [address] (78771) BMI (Body Mass 23.99 kg/m2 (no code) 15 - 25 kg/m2 03-31-2018 W MAURICE AGUDELO Community Index) 13:40-0500 09000 [facility] (17001) BMI (Body Mass 24.68 kg/m2 (no code) 15 - 25 kg/m2 01-27-2018 W JACKELINELHAM MAGNUS Community Index) 10:20-0400 47789 [facility] (74350) BMI (Body Mass 24.19 kg/m2 (no code) 15 - 25 kg/m2 01-14-2018 Mahad LADD Community Index) 18:50-[address] [place] [address] (09205) BMI (Body Mass 25.5 kg/m2 (no code) 15 - 25 kg/m2 09-03-2017 JENNIFFER GARDNER Community Index) 19:00-0400 [place] [id number] [place] [address] (04389) BMI (Body Mass 26.05 kg/m2 (no code) 15 - 25 kg/m2 05-06-2017 M MELITA SUTTON Community Index) 13:40-[address] [place] [address] (81619) BMI (Body Mass 26.15 kg/m2 (no code) 15 - 25 kg/m2 04-02-2017 YOLIE NORRIS Community Index) 18:50-0500 [place] [id number] [place] [address] (01273) Body 100 [degF] (no code) 97.8 - 99.0 06-27-2018 EDGARD BUSBY Community Temperature [degF] 09:000500 08525 [facility] (48016) Body 98.5 [degF] (no code) 97.8 - 99.0 06-13-2018 EDGARD NATARAJAN Community Temperature [degF] 09:00-0500 65212 [facility] (56338) Body 98.3 [degF] (no code) 97.8 - 99.0 03-31-2018 SOFÍA JARA Community Temperature [degF] 13:40-0500 05852 [facility] (89621) Body 98.5 [degF] (no code) 97.8 - 99.0 01-27-2018 SOFÍA JARA Community Temperature [degF] 10:20-0400 72725 [facility] (72521) Body 98.3 [degF] (no code) 97.8 - 99.0 01-14-2018 LYNNETTE RICHARDS [facility] Temperature [degF] 18:50-0400 49820 [facility] (73847) Body 99.4 [degF] (no code) 97.8 - 99.0 09-03-2017 RODERICK [facility] Temperature [degF] 19:00-0400 [facility] [address] [facility] (03172) Body 98.5 [degF] (no code) 97.8 - 99.0 05-06-2017 SOHA PAREKH [facility] Temperature [degF] 13:40-0500 58417 [facility] (05962) Body 97.8 [degF] (no code) 97.8 - 99.0 04-02-2017 [facility] Temperature [degF] 18:50-0500 [facility] [address] [facility] (22844) Body 98 [degF] (no code) 97.8 - 99.0 06-15-2014 TIARRA MADL [facility] Temperature [degF] 08:55-0500 94703 [facility] (44487) Body 97.5 [degF] (no code) 97.8 - 99.0 05-18-2014 TIARRA MAD L [facility] Temperature [degF] 08:20-0500 14971 [facility] (08342) Body 98.9 [degF] (no code) 97.8 - 99.0 05-11-2014 TIARRA MAD L [facility] Temperature [degF] 09:03-0500 01228 [facility] (30675) Body weight 68.04 kg (no code) kg 06-27-2018 EDGARD HYDE [facility] 09:00-0500 23329 [facility] (62050) Body weight (no code) 06-13-2018 [facility] 09:00-0500 27502 [facility] (07822) Body weight 81.24 kg (no code) kg 06-15-2014 [facility] 08:55-0500 09193 [facility] (13595) Body weight 79.97 kg (no code) kg 05-18-2014 [facility] 08:20-0500 08242 [facility] (79449) Body weight 79.29 kg (no code) kg 05-11-2014 [facility] 09:03-0500 19296 [facility] (91970) Height 163.19 cm (no code) cm 06-27-2018 [facility] 09:00-[id number] [place] [address] (52963) Height 163.19 cm (no code) cm 06-13-2018 [facility] 09:00-[id number] [place] [address] (76885) Height 166.37 cm (no code) cm 03-31-2018 SOFÍA [facility] 13:40-[id number] [place] [address] (37758) Height 166.37 cm (no code) cm 01-27-2018 SOFÍA Lal [facility] 10:20-[id number] [place] [address] (68640) Height 166.37 cm (no code) cm 01-14-2018 LYNNETTE [facility] 18:50-[id number] [place] [address] (34575) Height 166.37 cm (no code) cm 09-03-2017 RODERICK enc[facility] 19:00-0400 [place] [phone] [place] [address] (11250) Height 166.37 cm (no code) cm 05-06-2017 SOHA SUTTON [facility] 13:[id number] [place] [address] (22071) Height 166.37 cm (no code) cm 04-02-2017 RODERICK [facility] 18:50-[address] (56965) Height 166.37 cm (no code) cm 06-15-2014 TIARRA MADL [facility] 08:55-[address] [place] [address] (69545) Height 166.37 cm (no code) cm 05-18-2014 TIARRA MADL [facility] 08:20-[address] [place] [address] (67795) Height 166.37 cm (no code) cm 05-11-2014 TIARRA MADL [facility] 09:030500 [address] [place] [address] (71283) Pulse Oximetry 98 % (no code) 95 - 100 % 03-31-2018 [facility] 13:40-[address] [place] [address] (27455) Pulse Oximetry 97 % (no code) 95 - 100 % 01-27-2018 [facility] 10:20-[address] [place] [address] (40730) Weight 66.41 kg (no code) kg 03-31-2018 [facility] mmunity 13:40-[address] [place] [address] (34389) Weight 68.31 kg (no code) kg 01-27-2018 [facility] mmunity 10:20-[address] [place] [address] (96976) Weight 66.95 kg (no code) kg 01-14-2018 LYNNETTE LADD [facility] 18:50-[address] [place] [address] (87056) Weight 70.58 kg (no code) kg 09-03-2017 RODERICK [facility] 19:00-04[address] [place] [id number] (84963) Weight 72.12 kg (no code) kg 05-06-2017 SOHA Lal [facility] 13:40-[address] [place] [address] (13449) Weight 72.39 kg (no code) kg 04-02-2017 RODERICK Commun ity 18:50-[address] (31619) Interventions No Information Plan of Treatment Normalized Care Care Detail Care Activity Date Care Provider F acility Activity (-FU-60) [facility] 05-05-2018 KRYS LING [address] C [facility] F/u 60 min [place] ([id number]) (-INTAKE) [facility] 04-10-2018 - SOFÍA AGUDELO 01772 C [facility] 04-10-2018 - [facility] Intake 04-10-2018 [place] (68890) ([facility]) Chronic Health no information 02-06-2018 - MARIAVIANCA WILBERTO 6 6762 [facility] 02-06-2018 - [facility] 02-06-2018 [place] (88054) ([facility]) Chronic Health [facility] 05-07-2018 KRYS LING [address]1076 [facility] (70718) Patient Education Outer Ear Infection no information [facility] [place] Via (OR) [address] [place] [address] ([id number]) Patient referral no information no information [facility] [place] Via [address] [place] [address] (76975) Goals Patient Goal Desired Goal no information no information Social History Normalized Code Original Code Date Value Tobacco smoking status Tobacco smoking status no information Ex-smoker (finding) WYIS WYIS no information no information 10-04-2015 Denies Use no information no information 10-04-2015 No no information no information 03-15-2019 Denies no information no information 03-15-2019 Former Smoker no information no information 03-15-2019 Cigarettes Sex Assigned At Sex Assigned At no information F emale Functional Status No Information Mental Status Status Assessment Result Care Provider Facility Cognitive function Comprehension Ability [facility] [place] Via [facility] [address] [place] [address] ([id number]) Encounters Encounter Normalized Encounter Encounter Diagnosis Care Provi meena Organization Date Type 02-06-2018 ([facility]) Chronic Health no information SOFÍA AGUDELO (n o [facility] Maintenance phone) (no phone) 10-29-2018 (ESTAB) Establish Care Generalized anxiety SHALONDA MISHRA (no [facility] (no phone) - disorder phone) 10-29-2018 - 10-29-2018 07-15-2018 Admission to day no information RAKEL PINEDA Work no organization name - surgery (no phone ) 07-15-2018 04-23-2019 [facility] Cough MODE COURTNEY (no [facility] (no phone) phone) 01-07-2019 [facility] Wheezing MODE COURTNEY (no [facility] (no phone) - phone) 01-07-2019 - 01-07-2019 01-01-2019 [facility] Acute bronchiolitis, MODE COURTNEY ( no [facility] (no phone) - unspecified phone) 01-01-2019 - 01-01-2019 11-28-2018 [facility] Essential (primary) SHALONDA MISHRA (no [facility] (no phone) - hypertension phone) 11-28-2018 - 11-28-2018 11-20-2018 [facility] 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 phone) 11-20-2018 - 11-20-2018 11-04-2018 [facility] Trigeminal neuralgia SHALONDA MISHRA (no [facility] (no phone) - phone) 11-04-2018 - 11-04-2018 06-15-2014 [facility] no information TIARRA MADL (n o phone) [facility] - Doctor Migration (no (no phone) 06-15-2014 phone) TIARRA MADL (no - phone) Doctor 06-15-2014 [facility] (no phone) 05-18-2014 [facility] no information Doctor Migrati on (no [facility] - phone) TIARRA MADL (no (no phone) 05-18-2014 phone) Doctor - Migration (no phone) 05-18-2014 TIARRA MADL (no phone) 05-14-2014 [facility] no information Doctor Migrati on (no [facility] - phone) KAYLIE MCCOY (no phone) 05-14-2014 (no phone) TIARRA MADL - (no phone) Doctor 05-14-2014 [facility] (no phone) KAYLIE DARIUS (no phone) TIARRA MADL (no phone) 05-12-2014 [facility] no information Doctor Migrati on (no [facility] - phone) TIARRA MADL (no (no phone) 05-12-2014 phone) Doctor - Migration (no phone) 05-12-2014 TIARAR MADL (no phone) 05-11-2014 [facility] no information TIARRA MADL (n o phone) [facility] - Doctor Migration (no (no phone) 05-11-2014 phone) TIARRA MADL (no - phone) Doctor 05-11-2014 [facility] (no phone) 02-11-2014 [facility] no information URSZULA Parra (no [facility] - phone) Doctor (no phone) 02-11-2014 [facility] (no phone) - URSZULA Holloway (no 02-11-2014 phone) Doctor [facility] (no phone) 12-17-2013 [facility] no information DAWNA Barr (no [facility] - phone) Doctor (no phone) 12-17-2013 [facility] (no phone) - DAWNA MARQUES (no 12-17-2013 phone) Doctor [facility] (no phone) 10-27-2013 [facility] no information Doctor Migrati on (no [facility] - phone) (no phone) 10-27-2013 - 10-27-2013 06-20-2019 Emergency department no information SUKI SALES MD (no [facility] - patient visit phone) NEDRA COLIN [facility] 06-20-2019 (no phone) (no phone) 03-15-2019 Emergency department no information (no phone) [facility] - patient visit Hospital (no phone) 03-15-2019 03-15-2019 Emergency department no information SUKI SALES MD (no [facility] - patient visit phone) [facility] 03-15-2019 (no phone) 12-30-2017 Emergency department no information SUKI SALES Work no organization name - patient visit (no phone ) 12-30-2017 12-30-2017 Emergency department no information SUKI SALES MD (no [facility] - patient visit phone) [facility] 12-30-2017 (no phone) 12-11-2017 Emergency department no information EMILY Loo k no organization name - patient visit (no phone ) 12-11-2017 EMILY SHI 06-11-2016 Emergency department no information no name (no jael ne) no organization name - patient visit (no phone) 06-11-2016 05-05-2014 Emergency department no information no name (no jael ne) no organization name - patient visit (no phone) 05-06-2014 10-31-2011 Emergency department no information no name (no jael ne) no organization name - patient visit (no phone) 10-31-2011 10-18-2011 Emergency department no information no name (no jael ne) no organization name - patient visit (no phone) 10-18-2011 10-02-2010 Emergency department no information no name (no jael ne) no organization name - patient visit (no phone) 10-02-2010 09-05-2010 Emergency department no information no name (no jael ne) no organization name - patient visit (no phone) 09-05-2010 08-02-2010 Emergency department no information no name (no jael ne) no organization name - patient visit (no phone) 08-02-2010 11-25-2009 Emergency department no information no name (no jael ne) no organization name - patient visit (no phone) 11-25-2009 08-23-2009 Emergency department no information no name (no jael ne) no organization name - patient visit (no phone) 08-23-2009 12-12-2018 Follow-up encounter Encounter for SHALONDA MISHRA (n o [facility] (no phone) - follow-up examination phone) 12-12-2018 after completed - treatment for 12-12-2018 conditions other than malignant neoplasm 12-18-2018 Nursing evaluation of no information MODE SPENCER (no [facility] (no phone) - patient and report phone) 12-18-2018 - 12-18-2018 01-16-2018 Patient encounter no information no name (no phone) no organization name (no phone) 12-30-2017 Patient encounter no information no name (no phone) no organization name (no phone) 12-11-2017 Patient encounter no information no name (no phone) no organization name (no phone) 09-03-2017 Patient encounter no information no name (no phone) no organization name (no phone) 05-06-2017 Patient encounter no information no name (no phone) no organization name (no phone) 10-04-2015 Patient encounter no information no name (no phone) no organization name - (no phone) 10-05-2015 12-23-2014 Patient encounter no information no name (no phone) no organization name - (no phone) 12-24-2014 07-25-2011 Patient encounter no information no name (no phone) no organization name (no phone) 09-07-2005 Patient encounter no information no name (no phone) no organization name (no phone) 06-20-2019 Patient encounter no information NEDRA BEYER (n o [facility] procedure phone) [facility] (no phone) 05-13-2019 Patient encounter no information no name (no phone) no organization name - procedure (no phone) 05-13-2019 04-24-2019 Patient encounter no information no name (no phone) no organization name - procedure (no phone) 04-24-2019 04-23-2019 Patient encounter no information no name (no phone) no organization name procedure (no phone) 04-09-2019 Patient encounter no information no name (no phone) no organization name - procedure (no phone) 04-09-2019 03-10-2019 Patient encounter no information no name (no phone) no organization name - procedure (no phone) 03-10-2019 02-24-2019 Patient encounter no information no name (no phone) no organization name - procedure (no phone) 02-24-2019 02-20-2019 Patient encounter no information no name (no phone) no organization name - procedure (no phone) 02-21-2019 02-03-2019 Patient encounter no information no name (no phone) no organization name - procedure (no phone) 02-04-2019 01-26-2019 Patient encounter no information no name (no phone) no organization name - procedure (no phone) 01-27-2019 01-07-2019 Patient encounter no information no name (no phone) no organization name procedure (no phone) 01-01-2019 Patient encounter no information no name (no phone) no organization name procedure (no phone) 12-18-2018 Patient encounter no information no name (no phone) no organization name procedure (no phone) 12-12-2018 Patient encounter no information no name (no phone) no organization name procedure (no phone) 11-28-2018 Patient encounter no information no name (no phone) no organization name procedure (no phone) 11-20-2018 Patient encounter no information no name (no phone) no organization name procedure (no phone) 11-20-2018 Patient encounter no information no name (no phone) no organization name procedure (no phone) 11-19-2018 Patient encounter no information no name (no phone) no organization name - procedure (no phone) 11-20-2018 11-06-2018 Patient encounter no information no name (no phone) no organization name procedure (no phone) 10-29-2018 Patient encounter no information no name (no phone) no organization name procedure (no phone) 08-16-2018 Patient encounter no information no name (no phone) no organization name procedure (no phone) 07-15-2018 Patient encounter no information no name (no phone) no organization name - procedure (no phone) 07-15-2018 07-15-2018 Patient encounter no information RAKEL PINEDA DO (no [facility] - procedure phone) [facility] 07-15-2018 (no phone) 07-09-2018 Patient encounter no information RAKEL Loo k no organization name - procedure (no phone ) 07-09-2018 RAKEL Quiros 07-09-2018 Patient encounter no information RAKEL PINEDA DO (no [facility] - procedure phone) [facility] 07-09-2018 (no phone) 07-03-2018 Patient encounter no information EDGARD LADD ( no no organization name procedure phone) EDGARD Salazar (no phone) [facility] (no phone) 07-03-2018 Patient encounter no information EDGARD LADD P A [facility] procedure (no phone) [facility] (no phone) 06-27-2018 Patient encounter no information no name (no phone) no organization name procedure (no phone) 06-13-2018 Patient encounter no information no name (no phone) no organization name procedure (no phone) 05-26-2018 Patient encounter no information no name (no phone) no organization name procedure (no phone) 05-20-2018 Patient encounter no information no name (no phone) no organization name procedure (no phone) 04-10-2018 Patient encounter no information no name (no phone) no organization name procedure (no phone) 03-31-2018 Patient encounter no information no name (no phone) no organization name procedure (no phone) 12-30-2016 Patient encounter no information no name (no phone) no organization name procedure (no phone) 06-11-2016 Patient encounter no information no name (no phone) no organization name procedure (no phone) Patient encounter no information (no phone) [facility] (no phone) 01-02-2019 Telephone encounter Bronchitis, not MODE SIMPSO N (no [facility] (no phone) - specified as acute or phone) 01-02-2019 chronic - 01-02-2019 12-11-2018 Telephone encounter no information SHALONDA MISHRA ( no [facility] (no phone) - phone) 12-11-2018 - 12-11-2018 11-20-2018 Telephone encounter no information SHALONDA MISHRA ( no [facility] (no phone) - phone) 11-20-2018 - 11-20-2018 11-13-2018 Telephone encounter no information SHALONDA MISHRA ( no [facility] - phone) (no phone) 11-13-2018 - 11-13-2018 11-06-2018 Telephone encounter Anesthesia of skin SHALONDA BUR NS (no [facility] (no phone) - phone) 11-06-2018 - 11-06-2018 06-20-2019 no information Encounter for other no name (no phon e) no organization name preprocedural (no phone) examination no information Encounter for other no name (no phone) no org anization name preprocedural (no phone) examination Medical Equipment The data below is from unstructured sourcesNo Medical Equipment Information available Payers Normalized Payer Value Private Health Insurance [id number]) Private Health Insurance no information Evaluation note Note Type Note Facility Evaluation No Assessments Information Available A [employer] note [facility] ([id number]) History general Narrative - Reported Note Type Note Facility History general Narrative - Reported Type Medical htn History Medical acid reflux History Medical anxiety History Medical Hiatal hernia History Medical Meningioma of cerebellum History Surgical Appendectomy 09/2014 History Surgical Cholecystectomy 09/2015 History Surgical 2003 History Surgical partial hysterectomy 2005 History Surgical dilatation and curettage x2 History Surgical meningioma tumor removal 11/2018 History Hospitaliz [facility] - High BP 12/2017 ation History Hospitaliz appendectomy ation History Hospitaliz ation History Hospitaliz hysterectomy-partial ation History Hospitaliz Surgery at [facility] 12/03/18 ation History [facility] ([id number]) Summary Purpose eClinicalWorks SubmissioneClinicalWorks SubmissioneClinicalWorks SubmissioneClinicalWorks SubmissioneClinicalWorks SubmissioneClinicalWorks Submission Advance Directives Directive Response Recor ded Date/Time Advance Directives No 9:27am Health Care Power of Social Secretary No 10/04/15 9:27am Organ Donor No 10/04/15 9:27am Directive Response Recor ded Date/Time Advance Directives No 4:10pm Health Care Power of Social Secretary No 10/03/15 4:10pm Organ Donor Yes 10/03/15 4:10pm Resuscitation Status Full Code 10/03/15 4:10pm Directive Response Recor ded Date/Time Advance Directives No 9:27am Health Care Power of Social Secretary No 10/04/15 9:27am Organ Donor No 10/04/15 9:27am Resuscitation Status Full Code 10/04/15 9:27am Directive Response Recor ded Date/Time Advance Directives No 7:01am Organ Donor No 04/24/14 7:01am Resuscitation Status Full Code 04/24/14 7:01am Directive Response Recor ded Date/Time Advance Directives No 10:54pm Organ Donor No 05/05/14 10:54pm Resuscitation Status Full Code 05/05/14 10:54pm Directive Response Recor ded Date/Time Advance Directives No 9:28pm Health Care Power of Social Secretary No 01/01/15 9:28pm Organ Donor No 01/01/15 9:28pm Resuscitation Status Full Code 01/01/15 9:28pm Directive Response Recor ded Date Advance Directives N 07/09 6:46am Organ Donor N 09/29/12 6 :46am Directive Response Recor ded Date/Time Advance Directives No 6:05pm Organ Donor No 08/01/14 6:05pm Resuscitation Status Full Code 08/01/14 6:05pm Directive Response Recor ded Date/Time Advance Directives No 10:51pm Health Care Power of Social Secretary No 12/23/14 10:51pm Organ Donor No 12/23/14 10:51pm Resuscitation Status Full Code 12/23/14 10:51pm Directive Response Recor ded Date/Time Advance Directives No 3:36pm Health Care Power of Social Secretary No 12/30/16 3:36pm Organ Donor No 12/30/16 3:36pm Resuscitation Status Full Code 12/30/16 3:36pm Directive Response Recor ded Date/Time Advance Directives No 3:30am Health Care Power of Social Secretary No 12/11/17 3:30am Organ Donor No 12/11/17 3:30am Resuscitation Status Full Code 12/11/17 3:30am Directive Response Recor ded Date/Time Advance Directives No 4:09pm Health Care Power of Social Secretary No 12/30/17 4:09pm Organ Donor No 12/30/17 4:09pm Resuscitation Status Full Code 12/30/17 4:09pm Directive Response Recor ded Date/Time Advance Directives No 1:33pm Health Care Power of Social Secretary No 07/09/18 1:33pm Organ Donor No 07/09/18 1:33pm Resuscitation Status Full Code 07/09/18 1:33pm Directive Response Recor ded Date/Time Advance Directives No 10:07am Health Care Power of Social Secretary No 07/15/18 10:07am Organ Donor No 07/15/18 10:07am Resuscitation Status Full Code 07/15/18 10:07am Advance Directive Response Recorded Date/Time Advance Directives No No [email or web address] 3:57pm Health Care Power of Social Secretary No March 15, 2019 3:57pm Organ Donor No March 15, 2019 3:57pm Resuscitation Status Full Code March 15, 2019 3:57pm Discharge Instructions No hospital discharge instructions.No hospital discharge instructions. Patient Instructions Physician Instructions New, Converted or Re-Newed RX: RX on Chart Plan of Care/Instructions/FU: Dressings off in 48 hours. Incentive spirometry. F/U in 3 weeks Activity as Tolerated: Yes Discharge Diet: No Restrictions Care Plan Patient Instructions:: Dressings off in 48 hours. Incentive spirometry. F/U in 3 weeks Patient Instructions Physician Instructions New, Converted or Re-Newed RX: RX on Chart Plan of Care/Instructions/FU: Dressings off in 48 hours. Incentive spirometry. F/U in 3 weeks Activity as Tolerated: Yes Discharge Diet: No Restrictions Care Plan Patient Instructions:: Dressings off in 48 hours. Incentive spirometry. F/U in 3 weeks No hospital discharge instructions.No hospital discharge instructions.No hospital discharge instructions.No hospital discharge instructions.No hospital discharge instructions.No hospital discharge instructions.No hospital discharge instruction information available.No hospital discharge instruction information available.No hospital discharge instruction information available.No hospital discharge instruction information available.No hospital discharge instruction information available. Family History Relationship Condition A ge at Onset Recorded Date/Time Not Specified Family history of diab etes mellitus Not Recorded 10/04/2015 4:25pm Chief Complaint and Reason for Visit Chief Complaint Cardiac/General Prob lems Reason for Visit Headache Hypertension Chief Complaint Head/Cervical Proble ms Reason for Visit [id number] Additional Source Comments This clinical document has been generated using [employer] software that has been certified by the Office of the National Coordinator for Health Information Technology (ONC 15.99.04.3023.Diam.31.00.0.062134) and the National Committee for [employer] (NCQA, as an eMeasure certified technology). FOR RECORDS PERTAINING TO PATIENTS WHO ARE OR HAVE BEEN ENROLLED IN A CHEMICAL D EPENDENCY/SUBSTANCE ABUSE PROGRAM, SOME INFORMATION MAY BE OMITTED. This clinica l summary was aggregated from multiple sources. Caution should be exercised in using it in the provision of clinical care. This summary normalizes information from multiple sources, and as a consequence, information in this document may ma terially change the coding, format and clinical context of patient data. In mahesh tion, data may be omitted in some cases. CLINICAL DECISIONS SHOULD BE BASED ON T HE PRIMARY CLINICAL RECORDS. [employer] provides no warranty or guara ntee of the accuracy or completeness of information in this document.The followi ng information is based on time limited clinical information UNRECOGNIZED CONTENT PROVIDED BELOW FOR UNRECOGNIZED SECTION MEDICAL (GENERAL) HISTORY Type Description Date Surgical History Appendectomy 09/2014 Surgical History Cholecystectomy 09/2015 Type Description Date Surgical History Appendectomy 09/2014 Surgical History Cholecystectomy 09/2015 Hospitalization History [facility] - High BP 12/2017 Type Description Date Medical History htn Medical History acid reflux Surgical History Appendectomy 09/2014 Surgical History Cholecystectomy 09/2015 Surgical History 2003 Surgical History partial hysterectomy 2005 Surgical History dilatation and cure ttage x2 Hospitalization History [facility] - High BP 12/2017 Hospitalization History appendectomy Hospitalization History Hospitalization History hysterectomy -partial Type Description Date Medical History htn Medical History acid reflux Medical History anxiety Surgical History Appendectomy 09/2014 Surgical History Cholecystectomy 09/2015 Surgical History 2003 Surgical History partial hysterectomy 2005 Surgical History dilatation and cure ttage x2 Hospitalization History [facility] - High BP 12/2017 Hospitalization History appendectomy Hospitalization History Hospitalization History hysterectomy -partial Type Description Date Medical History htn Medical History acid reflux Medical History anxiety Medical History Hiatal hernia Surgical History Appendectomy 09/2014 Surgical History Cholecystectomy 09/2015 Surgical History 2003 Surgical History partial hysterectomy 2004 Surgical History dilatation and cure ttage x2 Hospitalization History [facility] - High BP 12/2017 Hospitalization History appendectomy Hospitalization History Hospitalization History hysterectomy -partial Type Description Date Medical History htn Medical History acid reflux Medical History anxiety Medical History Hiatal hernia Medical History Meningioma of cerebellum Surgical History Appendectomy 09/2014 Surgical History Cholecystectomy 09/2015 Surgical History 2003 Surgical History partial hysterectomy 2004 Surgical History dilatation and cure ttage x2 Surgical History meningioma tumor removal 11/2018 Hospitalization History [facility] - High BP 12/2017 Hospitalization History appendectomy Hospitalization History Hospitalization History hysterectomy -partial Hospitalization History Surgery at [facility] 12/03/18 UNRECOGNIZED CONTENT PROVIDED BELOW FOR UNRECOGNIZED SECTION REASON FOR VISIT congestion, cough and runny nose started yesterday [id number] Infection, P T reports she had Bronchitis 2 weeks ago and was treated with steroids. PT feels concerned with when she coughs her head throbs for 30 seconds to minute and it makes her neck stiff. PT notes this has been happening for the last year with he r cough but it is worse when she is sick. PT notes constant pressure on the back of her head -Frank GUERRA Medication questionBack pain, Pt reports the lower mike k pain started yesterday , along with nausea and loss of appetite. PT notes kidn ey stones in the past, - Frank Cohen Work NoteBH IntakeEstablish Care, geeta vated bp x over a year, bowel issues, constipation, does not have a movement for 5-6 days if she does not take some kind of medication x2 years, low back pain, hx of being a [employer] for years, doesn't know if just wear & tear, x5 yrs btucker MAanxiety f/u, acid reflux tried otc, last 2 days worse, some [id number]
--- OUTSIDE RECORDS SUMMARY | 2019-07-04 13:51 | XMS REPORT | Continuity of Care Document ---
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 aspartate aminotransfera se measurement (enzymatic activity/volume) 9 U/L 5-34 Serum or plasma alanine aminotransferase measurement (enzymatic activity/volume) 8 U/L 0-55 Serum or plasma protein measurement (mass/volume) 7.1 g/dL 6.4-8.2 Serum or plasma albumin measurement (mass/volume) 4.3 g/dL 3.2-4.5 CALCIUM CORRECTED 8.6 mg/dL 8.5-10.1 Magnesium - 06/29/19 22:48 Magnesium 2.1 mg/dL 1.6-2.4 Lipase - 06/29/19 22:48 Lipase 23 U/L 8-78 TROPONIN I FS - 06/29/19 22:48 TROPONIN I FS < 0.30 <0.30 PROBNP FS - 06/29/19 22:48 PROBNP FS 112.6 pg/mL <75.0 PT panel in platelet poor plasma by coag ulation assay - 06/29/19 22:48 Prothrombin time (PT) in platelet poor plasma by coagu lation assay 13.7 s 12.2-14.7 INR in platelet poor plasma or blood by coagulation as say 1.0 0.8-1.4 Activated partial thromboplastin time (a PTT) in platelet poor plasma bycoagulation assay - 06/29/19 22:48 Activated partial thromboplastin time (a PTT) in platelet poor plasma bycoagulation assay 32 s 24-35 Fibrin D-dimer FEU measurement in platel et poor plasma (mass/volume) - 06/29/19 22:48 Fibrin D-dimer FEU measurement in platelet poor plasma (mass/volume) 0.33 ug/mL 0.00-0.49 Complete urinalysis with reflex to cultu re - 06/29/19 23:05 Urine color determination YELLOW NRG Urine clarity determination SLT CLOUDY NRG Urine pH measurement by test strip 5.5 5-9 Specific gravity of urine by test strip >= 1.016-1.022 Urine protein assay by test strip, semi-quantitative NEGATIVE NEGATIVE Urine glucose detection by automated test strip NE GATIVE NEGATIVE Erythrocytes detection in urine sediment by light micr oscopy NEGATIVE NEGATIVE Urine ketones detection by automated test strip NE GATIVE NEGATIVE Urine nitrite detection by test strip NEGATIVE NEGATIVE Urine total bilirubin detection by test strip 1+ NEGATIVE Urine urobilinogen measurement by automated test strip (mass/volume) 0.2 mg/dL < = 1.0 Urine leukocyte esterase detection by dipstick NEG ATIVE NEGATIVE Automated urine sediment erythrocyte cou nt by microscopy (number/high power field) NONE NRG Automated urine sediment leukocyte count by microscopy (number/high power field) NONE NRG Bacteria detection in urine sediment by light microsco py TRACE NRG Squamous epithelial cells detection in u rine sediment by light microscopy 5-10 NRG Crystals detection in urine sediment by light microsco py PRESENT NRG Casts detection in urine sediment by light microscopy NONE NRG Mucus detection in urine sediment by light microscopy LARGE NRG Complete urinalysis with reflex to culture NO NRG Calcium oxalate crystals detection in ur ine sediment by light microscopy MODERATE NRG Encounters ACCT No. Visit Date/Time Discharge Status Pt. Type Provider Facility Loc./Unit Complaint [id number] 01/01/2019 10:00:00 01/01/2019 23:59:5 9 CLS Outpatient SHALONDA ELIZALDE [id number] 01/16/2018 08:35:00 Document Registration [id number] 06/29/2019 22:37:00 00:29:00 DIS Outpatient RACHEL PALMA MD [facility] ER FS CHEST PAIN/SOB [id number] 06/20/2019 19:12:00 020 20:27:00 DIS Outpatient NEDRA COLIN [facility] ER L ANKLE PAIN [id number] 03/15/2019 15:50:00 019 17:10:00 DIS Emergency MÓNICA PINA, SUKI Tobin [facility] ER HX BRAIN SURGERY/PAIN I N BACK OF HEAD [id number] 07/15/2018 09:36:00 019 11:45:00 DIS Outpatient RAKEL PINEDA DO [facility] ENDO DYSPHAGIA/CHANGE IN BOW EL HABIT [id number] 07/09/2018 05:39:00 019 13:41:00 DIS Outpatient RAKEL PINEDA DO [facility] PREOP COLONOSCOPY/EGD [id number] 07/03/2018 07:14:00 019 23:59:59 CLS Outpatient EDGARD LAZO [facility] RAD CHRONIC CONSTIPATION [id number] 12/30/2017 16:03:00 018 17:25:00 DIS Emergency SUKI SALES MD [facility] ER LETHARGIC, CHEST TIGHTN ESS, BP HIGH [id number] 12/30/2016 15:24:00 017 16:53:00 DIS Emergency ZAC VICENTE SANDING MACHINE OPERATOR OR TENDER [facility] ER R WRIST INJ [id number] 06/11/2016 05:26:00 017 06:02:00 DIS Emergency ADELE THRASHER MD [facility] ER SORE THROAT, CO UGH, WITUTU [id number] 12/03/2015 14:47:00 016 16:41:00 DIS Emergency ZAC VICENTE APRN [facility] ER CHEST PAIN, L ARM NUMBN ESS [id number] 10/04/2015 08:41:00 016 13:35:00 DIS Outpatient RONALD WOO MD [facility] GALLSTONES [id number] 10/03/2015 15:51:00 016 19:56:00 DIS Emergency ZAC VICENTE APRN [facility] ER NAUSEA/VOMITING/R SIDE RIB PAIN [id number] 01/01/2015 20:54:00 015 23:23:00 DIS Emergency ADELE THRASHER MD [facility] ER ABD PAIN [id number] 12/23/2014 19:49:00 015 11:30:00 DIS Outpatient ARPIT GREY MD [facility] BOWEL OBSTRUCTION [id number] 08/01/2014 17:52:00 015 18:36:00 DIS Emergency ZAC VICENTE APRN [facility] ER FACIAL PAIN [id number] 05/05/2014 22:50:00 015 00:23:00 DIS Emergency MARLON SHI DO a [facility] ER HIGH BP [id number] 04/24/2014 06:46:00 014 07:48:00 DIS Emergency ADELE THRASHER MD [facility] ER RT WRIST PAIN [id number] 09/29/2012 06:44:00 013 07:35:00 DIS Emergency ADELE THRASHER MD [facility] ER COUGH, FEVER [id number] 12/11/2017 03:24:00 Document Registration [id number] 10/31/2011 00:46:00 Document Registration [id number] 10/18/2011 00:52:00 Document Registration [id number] 07/25/2011 14:50:00 Document Registration [id number] 10/02/2010 20:54:00 Document Registration [id number] 09/05/2010 16:27:00 Document Registration [id number] 08/02/2010 19:35:00 Document Registration [id number] 11/25/2009 16:05:00 Document Registration [id number] 08/23/2009 15:21:00 Document Registration [id number] 09/12/2005 06:00:00 Document Registration [id number] 09/07/2005 07:44:00 Document Registration [id number] 06/15/2014 08:55:00 06/15/2014 23:59: 59 CLS Outpatient KHRIS SCHUMACHER DO [id number] 05/18/2014 08:20:00 05/18/2014 23:59: 59 CLS Outpatient MADL SANDING MACHINE OPERATOR OR TENDER, TIARRA L [id number] 05/12/2014 07:57:00 05/12/2014 23:59: 59 CLS Outpatient MADL SANDING MACHINE OPERATOR OR TENDER, TIARRA L [id number] 05/11/2014 09:03:00 05/11/2014 23:59: 59 CLS Outpatient MADL SANDING MACHINE OPERATOR OR TENDER, TIARRA L [id number] 10/08/2012 10:31:00 10/08/2012 23:59: 59 CLS Outpatient KHRIS SCHUMACHER DO [id number] 07/17/2012 15:48:00 07/17/2012 23:59: 59 CLS Outpatient [id number] 07/17/2012 15:48:00 Document Registration
== END 2019-06-30 00:29 | disposition home or self-care (01) ==
LOC: EDUNIT# 22:34 → ER FS 22:37
DX: R07.81 Pleurodynia (principal); R11.2 Nausea with vomiting, unspecified; K44.9 Diaphragmatic hernia without obstruction or gangrene; K21.0 Gastro-esophageal reflux disease with esophagitis; I10 Essential (primary) hypertension; Z85.43 Personal history of malignant neoplasm of ovary; Z88.5 Allergy status to narcotic agent; Z77.22 Contact with and (suspected) exposure to environmental tobacco smoke (acute) (chronic)
CPT/HCPCS: 36415; 71046; 80053; 81000; 83690; 83735; 83880; 84484; 85025; 85379; 85610; 85730; 93005; 93041

== ENCOUNTER 2019-10-19 21:30 | Emergency (ER) | payer OTHER ==
[~2019-10-19] VITALS: Ht 165.1 cm; Wt 62.4 kg
[~2019-10-19 21:30] MED LIST changes: +ACHD5005 PO; +ONDA4TAB11 PO; +SUCR1ORA5 PO
--- OUTSIDE RECORDS SUMMARY | 2019-10-19 21:41 | XMS REPORT ---
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 Activ e [id number] Problem Anxiety F41.9 Active 50207256 Problem Gastroesophageal reflux disease with esophagitis K 21.0 Active 947195442 Problem Hypertension, essential I10 Active 00225849 Problem Generalized anxiety disorder F41.1 A ctive 97665401 Problem Other chronic pain G89.29 Active 8 [id number] ALLERGIES No Information ENCOUNTERS Encounter Location Date Diagnosis [address] 3745 2400 Mar, Cough R05 ; Fluid level behind tympanic membrane of both ears H65.93 and Viral upper respiratory tract infection J06.9 [place] [id number] [place] [address] Dec, Wheezing R06.2 ; Impetigo L01.00 and Bronchitis J40 [facility] [id number] [place] [address] Dec, Bronchitis J40 [place] [address] [id number] [place], [place] [address] Dec, Bronchiolitis J21.9 and Acute effusion of both middle ears H65.193 [place] [id number] [place], [place] [address] Nov, [place] [address] [address] Nov, Follow-up exam Z09 and Hypertension, essential I10 [facility] [place] [id number] [address] Nov, [facility] [place] [id number] [place] [address] Nov, [facility] [place] [id number] [address] Nov, Hypertension, essential I10 and 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 [facility] [place] [id number] [place] [address] Oct, [facility] [place] [id number] [place] [address] Oct, 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 ; Anxiety F41.9 and Other complicated headache syndrome G44.59 [facility] [address] [place] [id number] [place] [address] Oct, [facility] [place] [id number] [place] [address] Oct, Facial numbness R20.0 and Trigeminal 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.0 [facility] [place] [address] [place] [address] Oct, Trigeminal 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.0 [facility] [place] [address] [place] [address] Oct, Generalized anxiety disorder F41.1 ; Hypertension, essential I10 ; Constipation, unspecified constipation type K59.00 ; Gastroesophageal reflux disease with esophagitis K21.0 ; Abscessed tooth K04.7 ; Other chronic pain G89.29 and Low back pain M54.[address] [facility] [address] [facility] [id number] [place] [address] Jul, Acute bronchitis, unspecifie d organism J20.[id number] [place] [address] Jul, Anxiety F41.9 and Major depr essive disorder, recurrent episode, severe F33.[address] [id number] [address] Jul, [address] [place]909WL[place], [place] [address] Jul, [address] [place], [place] [address] Jun, Generalized anxiety disorder F41.1 ; Gastroesophageal reflux disease with esophagitis K21.0 and Chronic constipation K59.[address] [id number], [place] [address] Jun, Primary hypertension I10 ; G eneralized anxiety disorder F41.1 and Gastroesophageal reflux disease, esophagitis presence not specified K21.[address] 340 [place] [address] May, [address] [place]39FV[place], [place] [address] May, Elevated blood pressure read ing R03.[address] 340 [id number], [place] [address] May, Primary hypertension I10 ; A nxiety F41.9 ; Gastroesophageal reflux disease, esophagitis presence not specified K21.9 ; Chronic constipation K59.09 ; Low back pain M54.5 ; Other chronic pain G89.29 an d Generalized abdominal pain R10.84 [facility] [place] [address] [facility] [id number] [place] [address] Apr, [facility] [address] [facility] [id number] [place] [address] Apr, [facility] [address] [facility] [id number] [place] [address] Apr, [facility] [address] [facility] [id number] [place] [address] Apr, Tachycardia R00.0 ; Facial n umbness R20.0 ; Generalized anxiety disorder F41.1 and Elevated blood pressure reading R03.0 [facility] [address] [facility] [id number] [place] [address] Mar, [facility] [address] [facility] [id number] [place] [address] Mar, Generalized anxiety disorder F41.1 and Panic disorder [episodic paroxysmal anxiety] without agoraphobia F41.0 [facility] [address] [facility] [id number] [place] [address] Mar, [facility] [address] [address] [id number] [place] [address] Mar, Lower back pain M54.5 [facility] [address] [id number] [place] [address] Jan, [facility] [address] [address] Jan, [facility] [id number] [place] [address] Jan, Acute non-recurrent maxillar y sinusitis J01.00 and Gastroesophageal reflux disease with esophagitis K21.0 [facility] [address] [place] [address] [id number] [place] [address] Dec, [facility] [address] [place] [address] Dec, [facility] [address] [place] [id number] [place] [address] Dec, Hypertension, essential I10 ; Anxiety F41.9 and Family history of hypothyroidism Z83.[address] [facility] [address] [facility] [id number] [place] [address] 18 Dec, 2017 Allergic rhinitis, unspecifi ed seasonality, unspecified trigger J30.9 and Bronchiolitis J21.9 [facility] [address] [address] 13 Dec, 2017 Hypertension, essential I10 ; Anxiety F41.9 and Family history of hypothyroidism Z83.[address] [address] August, Bronchitis J[address] [address] Apr, Wheezing R06.2 ; Body aches R52 and Acute bronchitis, unspecified organism J20.[address] [address] Mar, Other viral agents as the ca use of diseases classified elsewhere B97.89 and Acute upper respiratory infection, unspecified J06.[address] [address] August, [address] [address] August, [address] [address] August, Major depressive disorder, r ecurrent episode, severe F33.2 ; Panic disorder F41.0 ; Insomnia, unspecified type G47.00 ; Gastroesophageal reflux disease with esophagitis K21.0 ; Low back pain M54.5 ; Constipation, unspecified constipation type K59.00 and Fatigue, unspecified type R53.[address] [address] Jul, Sore throat J02.9 and Exposu re to Streptococcal pharyngitis Z20.[address] [address] Feb, [address] [address] Nov, Major depressive disorder, r ecurrent episode, severe F33.2 ; Insomnia, unspecified type G47.00 ; Gastroesophageal reflux disease with esophagitis K21.0 ; Low back pain M54.5 ; Constipation, unspecified constipation type K59.00 and Vaginal discharge N89.8 [place] [address] [id number] [address] [place] [address] Oct, Gastroesophageal reflux dise ase without esophagitis K21.9 [place] [address] [id number] [address] [place] [address] Oct, [place] [address] [facility] [id number] [place] [address] Sep, Major depressive disorder, r ecurrent episode, severe F33.2 ; Panic disorder F41.0 ; Low back pain M54.5 and Vaginal odor N89.8 [place] [address] [facility] [id number] [place] [address] Sep, [place] [address] [place] [id number] [place] [address] August, Frequent urination R35.0 ; E ncounter to establish care Z76.89 ; Abscess L02.91 ; Insomnia, unspecified type G47.00 ; Anxiety F41.9 ; Low back pain M54.5 ; Other chronic pain G89.29 and Constipation, unspecified constipation type K59.00 [place] [address] [place] [id number] [place] [address] Apr, Major depressive disorder, r ecurrent episode, severe F33.2 and Panic disorder F41.0 [place] [address] [facility] [id number] [place] [address] Apr, [place] [address] [facility] [id number] [place] [address] Apr, Major depressive disorder, r ecurrent episode, severe F33.2 and Panic disorder F41.0 [place] [address] [facility] [id number] [place] [address] Jul, [place] [address] [id number] [address] [place] [address] [place] [address] 13 Jul, 2014 [facility] [address] [id number] [address] [place] [address], [place] [address] 17 May, 2014 [facility] [address] [id number] [address] [place] [address], [place] [address] 17 May, 2014 [facility] [address] [id number] [address] [place] [address], [place] [address] 17 May, 2014 [facility] [address] [id number] [address] [place] [address], [place] [address] May, [facility] [address] [id number] [address] [place] [address], [place] [address] Apr, [facility] [address] [id number] [address] [place] [address], [place] [address] Apr, [facility] [address] [id number] [address] [place] [address], [place] [address] 16 Apr, 2014 [facility] [address] [id number] [address] [place] [address], [place] [address] 16 Apr, 2014 [facility] [address] [id number] [address] [place] [address], [place] [address] 16 Apr, 2014 [facility] [address] [id number] [address] [place] [address], [place] [address] 16 Apr, 2014 [facility] [address] [id number] [address] [place] [address], [place] [address] 14 Apr, 2014 [facility] [address] [id number] [address] [place] [address] 14 Apr, 2014 [facility] [address] [id number] [address] [place] [address], [place] [address] Apr, [facility] [address] [id number] [address] [place] [address], [place] [address] 13 Apr, 2014 [facility] [address] [id number] [address] [place] [address], [place] [address] Jan, [facility] [address] [id number] [address] [place] [address] Jan, [facility] [address] [id number] [address] [place] [address] Nov, [facility] [address] [id number] [address] [place] [address] Nov, [facility] [address] [id number] [address] [place] [address] Oct, [facility] [address] [id number] [address] [place] [address] Oct, [facility] [address] [id number] [address] [place] [address] Dec, [facility] [address] [id number] [address] [place] [address] Sep, [facility] [address] [id number] [address] [place] [address] Jul, [facility] [address] [id number] [address] [place] [address] Jun, IMMUNIZATIONS No Known Immunizations SOCIAL HISTORY Never Assessed REASON FOR VISIT PLAN OF CARE VITAL SIGNS MEDICATIONS No Known Medications RESULTS No Results PROCEDURES No Known procedures INSTRUCTIONS MEDICATIONS ADMINISTERED No Known Medications MEDICAL (GENERAL) HISTORY Type Description Date Medical History htn Medical History acid reflux Medical History anxiety Medical History Hiatal hernia Medical History Meningioma of cerebellum Surgical History Appendectomy 09/2014 Surgical History Cholecystectomy 09/2015 Surgical History 2003 Surgical History partial hysterectomy 2004 Surgical History dilatation and curettage x2 Surgical History meningioma tumor removal 11/2018 Hospitalization History ER [facility] - High BP 12/2017 Hospitalization History appendectomy Hospitalization History Hospitalization History hysterectomy-partial Hospitalization History Surgery at 12/03/18
--- OUTSIDE RECORDS SUMMARY | 2019-10-19 21:41 | XMS REPORT ---
Author Author Judith Holloway Organization [facility] Address [address] [place] [address] Care Team Providers Care Pewter Caster Name Role Phone URSZULA Holloway Unavailable PROBLEMS Type Condition ICD9-CM Code GNL60-QC Code Onset Dates Condition S tatus SNOMED Code Problem Major depressive disorder, recurrent episode, severe F33.2 Active 355390890509 Problem Constipation, unspecified constipation type K59.00 Active 06034366 Problem Insomnia, unspecified type G47.00 Act julián [id number] Problem 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 Activ e [id number] Problem Anxiety F41.9 Active 73077496 Problem Gastroesophageal reflux disease with esophagitis K 21.0 Active 082105639 Problem Hypertension, essential I10 Active 08835887 Problem Generalized anxiety disorder F41.1 A ctive 16004293 Problem Other chronic pain G89.29 Active 8 7804906 ALLERGIES No Information ENCOUNTERS Encounter Location Date Diagnosis [address] [phone] Mar, Cough R05 ; Fluid level behind tympanic membrane of both ears H65.93 and Viral upper respiratory tract infection J06.[address] 3148 [address] Dec, Wheezing R06.2 ; Impetigo L01.00 and Bronchitis J40 [facility] [address] [address] Dec, Bronchitis J40 [place] [address] [address] [place] [id number] Dec, Bronchiolitis J21.9 and Acute effusion of both middle ears H65.193 [place] [id number] 2-4[address] Nov, [facility] [place] [address] [place] [address] [id number], [place] [address] Nov, Follow-up exam Z09 and Hypertension, essential I10 [facility] [address], [place] [address] Nov, [facility] [address] [place] [id number] [place] [address] 2[address] Nov, 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 ; Anxiety F41.9 and Other complicated headache syndrome G44.59 [facility] [address] [facility] [id number] [address] [place] [address] Oct, [facility] [address] [place] [address] Oct, Facial numbness R20.0 and Trigeminal 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.0 [facility] [address] [place] [address] Oct, Trigeminal 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.0 [facility] [address] [place] [address] 2[address] Oct, Generalized anxiety disorder F41.1 ; Hypertension, essential I10 ; Constipation, unspecified constipation type K59.00 ; Gastroesophageal reflux disease with esophagitis K21.0 ; Abscessed tooth K04.7 ; Other chronic pain G89.29 and Low back pain M54.5 [facility] [address] [facility] [id number] [address] [place] [address] Jul, Acute bronchitis, unspecifie d organism J20.[address] [place] [address] Jul, Anxiety F41.9 and Major depr essive disorder, recurrent episode, severe F33.[address] [place] [address] Jul, [address] [place] [address] Jul, [address] [id number], [place] [address] Jun, Generalized anxiety disorder F41.1 ; Gastroesophageal reflux disease with esophagitis K21.0 and Chronic constipation K59.[address] [place] [address] Jun, Primary hypertension I10 ; G eneralized anxiety disorder F41.1 and Gastroesophageal reflux disease, esophagitis presence not specified K21.[address] [place] [address] May, [address] [place], [place] [address] May, Elevated blood pressure read ing R03.[address] [id number], [place] [address] May, Primary hypertension I10 ; A nxiety F41.9 ; Gastroesophageal reflux disease, esophagitis presence not specified K21.9 ; Chronic constipation K59.09 ; Low back pain M54.5 ; Other chronic pain G89.29 an d Generalized abdominal pain R10.84 [facility] [address], [place] [address] Apr, [facility] [address] [place] [id number], [place] [address] Apr, [facility] [address] [facility] [id number] [address] [place] [address] Apr, [facility] [address] [facility] [id number] [address] [place] [address] Apr, Tachycardia R00.0 ; Facial n umbness R20.0 ; Generalized anxiety disorder F41.1 and Elevated blood pressure reading R03.0 [facility] [address] [facility] [id number] [address] [place] [address] Mar, [facility] [address] [facility] [id number] [address] [place] [address] Mar, Generalized anxiety disorder F41.1 and Panic disorder [episodic paroxysmal anxiety] without agoraphobia F41.0 [facility] [address] [facility] [id number] [address] [place] [address] Mar, [facility] [address] [facility] [id number] [place] [address] Mar, Lower back pain M54.5 [place] [address] [address] [facility] [id number] [address] [place] [address] Jan, [facility] [address] [facility] [id number] [address] [place] [address] Jan, [facility] [address] [facility] [id number] [address] [place] [address] Jan, Acute non-recurrent maxillar y sinusitis J01.00 and Gastroesophageal reflux disease with esophagitis K21.0 [place] [address] [address] [facility] [id number] [address] [place] [address] Dec, [facility] [address] [facility] [id number] [address] [place] [address] Dec, [facility] [address] [facility] [id number] [address] [place] [address] 20 Dec, 2017 Hypertension, essential I10 ; Anxiety F41.9 and Family history of hypothyroidism Z83.49 [facility] [address] [id number] [address] [place] [address] 18 Dec, 2017 Allergic rhinitis, unspecifi ed seasonality, unspecified trigger J30.9 and Bronchiolitis J21.9 [place] [address] [address] Dec, Hypertension, essential I10 ; Anxiety F41.9 and Family history of hypothyroidism Z83.49 [place] [address] [address] August, Bronchitis J40 [address] [address] Apr, Wheezing R06.2 ; Body aches R52 and Acute bronchitis, unspecified organism J20.[address] [address] Mar, Other viral agents as the ca use of diseases classified elsewhere B97.89 and Acute upper respiratory infection, unspecified J06.[address] [address] August, [address] [address] August, [address] [address] August, Major depressive disorder, r ecurrent episode, severe F33.2 ; Panic disorder F41.0 ; Insomnia, unspecified type G47.00 ; Gastroesophageal reflux disease with esophagitis K21.0 ; Low back pain M54.5 ; Constipation, unspecified constipation type K59.00 and Fatigue, unspecified type R53.83 [place] [address] [place] [id number] [place] [address] Jul, Sore throat J02.9 and Exposu re to Streptococcal pharyngitis Z20.[address] [address] Feb, [address] [address] Nov, Major depressive disorder, r ecurrent episode, severe F33.2 ; Insomnia, unspecified type G47.00 ; Gastroesophageal reflux disease with esophagitis K21.0 ; Low back pain M54.5 ; Constipation, unspecified constipation type K59.00 and Vaginal discharge N89.8 [place] [address] [address] [facility] [id number] [address] [place] [address] Oct, Gastroesophageal reflux dise ase without esophagitis K21.9 [place] [address] [place] [id number] [address] [place] [address] Oct, [place] [address] [place] [id number] [place] [address] Sep, Major depressive disorder, r ecurrent episode, severe F33.2 ; Panic disorder F41.0 ; Low back pain M54.5 and Vaginal odor N89.8 [place] [address] [place] [id number] [address] [place] [address] Sep, [place] [address] [address] August, Frequent urination R35.0 ; E ncounter to establish care Z76.89 ; Abscess L02.91 ; Insomnia, unspecified type G47.00 ; Anxiety F41.9 ; Low back pain M54.5 ; Other chronic pain G89.29 and Constipation, unspecified constipation type K59.00 [place] [address] [place] [address] Apr, Major depressive disorder, r ecurrent episode, severe F33.2 and Panic disorder F41.0 [place] [address] [place] [id number] [address] [place] [address] Apr, [place] [address] [place] [address] Apr, Major depressive disorder, r ecurrent episode, severe F33.2 and Panic disorder F41.0 [place] [address] [place] [id number] [address] [place] [address] Jul, [facility] [address] [id number] [address] [place] [address], [place] [address] 13 Jul, 2014 [facility] [address] [id number] [address] [place] [address], [place] [address] 17 May, 2014 [facility] [address] [id number] [address] [place] [address], [place] [address] 17 May, 2014 [facility] [address] [id number] [address] [place] [address], [place] [address] 17 May, 2014 [facility] [address] [id number] [address] [place] [address], [place] [address] May, [facility] [address] [id number] [address] [place] [address], [place] [address] Apr, [facility] [address] [id number] [address] [place] [address], [place] [address] Apr, [facility] [address] [id number] [address] [place] [address], [place] [address] 16 Apr, 2014 [facility] [address] [id number] [address] [place] [address], [place] [address] 16 Apr, 2014 [facility] [address] [id number] [address] [place] [address], [place] [address] 16 Apr, 2014 [facility] [address] [id number] [address] [place] [address], [place] [address] 16 Apr, 2014 [facility] [address] [id number] [address] [place] [address], [place] [address] 14 Apr, 2014 [facility] [address] [id number] [address] [place] [address], [place] [address] 14 Apr, 2014 [facility] [address] [id number] [address] [place] [address], [place] [address] Apr, [facility] [address] [id number] [address] [place] [address], [place] [address] 13 Apr, 2014 [facility] [address] [id number] [address] [place] [address], [place] [address] Jan, [facility] [address] [id number] [address] [place] [address] Jan, [facility] [address] [id number] [address] [place] [address] Nov, [facility] [address] [id number] [address] [place] [address] Nov, [facility] [address] [id number] [address] [place] [address] Oct, [facility] [address] [id number] [address] [place] [address] Oct, [facility] [address] [id number] [address] [place] [address] Dec, [facility] [address] [id number] [address] [place] [address] Sep, [facility] [address] [id number] [address] [place] [address] Jul, [facility] [address] [id number] [address] [place] [address] Jun, IMMUNIZATIONS No Known Immunizations SOCIAL HISTORY [...] partial hysterectomy 2005 Surgical History dilatation and curettage x2 Surgical History meningioma tumor removal 11/2018 Hospitalization History [facility] - High BP 12/2017 Hospitalization History appendectomy Hospitalization History Hospitalization History hysterectomy-partial Hospitalization History Surgery at 12/03/18
--- OUTSIDE RECORDS SUMMARY | 2019-10-19 21:41 | XMS REPORT | Encounter Summary ---
Author Author [facility] Organization [facility] Address Unknown Phone Unavailable Care Team Providers Care Hand Upper And Bottom Lacer Name Role Phone Sherita Mishra BUILDING INSULATION INSTALLER PCP Unavailable Reason for Visit * Reason Comments Other Encounter Details Care Team Description Date Type Department Romeo Mcdaniel MD [address] [facility] [address] [place] [address] Other 05/14/2019 Telephone [facility] [address] [place] [address] Social History Date Tobacco Use [...] - Mary Mora - 05/28/2019 10:32 AM CORPORATE TRUST OFFICER Contacted patient to notify that cannot write a letter/ work form to exc use her from work due to her symptoms. ORATE TRUST OFFICER * Telephone Encounter - Mary Mora - 05/14/2019 3:17 PM CORPORATE TRUST OFFICER Patient contacted clinic with c/o of experiencing [...] to see if this would be okay. ORATE TRUST OFFICER documented in this encounter Plan of Treatment Not on filedocumented as of this encounter Visit Diagnoses Not on filedocumented in this encounter
--- OUTSIDE RECORDS SUMMARY | 2019-10-19 21:41 | XMS REPORT | Clinical Summary ---
Author Author [facility] Organization [facility] Address Unknown Phone Unavailable Care Team Providers Care Actuarial Manager Name Role Phone Sherita Mishra MELE PCP Unavailable Source Comments Some departments are not documenting in the electronic medical record. If you d o not see the information that you expected, contact Release of Information in doctors hospital [employer] Information Management department at [phone] for further assistan ce in locating additional records.[facility] Allergies Comments Active Allergy Reactions Severity Noted [...] IBS (irritable bowel syndrome) 12/03/2018 Meningioma 11/26/2018 Family History Medical History Relation Name Comments [...] Comments Vital Sign 122/90 04/17/2019 1:33 PM HELPDESK ANALYST Blood Pressure 81 04/17/2019 1:33 PM HELPDESK ANALYST Pulse 36.9 C (98.5 F) 04/17/2019 1:33 PM HELPDESK ANALYST Temperature - - Respiratory Rate 100% 12/05/2018 9:35 AM CDT Oxygen Saturation - - Inhaled Oxygen Concentration 68 kg (150 lb) 04/15/2019 8:46 AM HELPDESK ANALYST Weight 165.1 cm (5' 5") 04/15/2019 8:46 AM HELPDESK ANALYST Height 24.96 04/15/2019 8:46 AM HELPDESK ANALYST Body Mass Index Plan of Treatment Health Maintenance Due Date Last Done Comments HIV SCREENING 08/01/1995 DTAP/TDAP VACCINES (1 - 1998 Tdap) HEPATITIS C SCREENING 1998 PHYSICAL (COMPREHENSIVE) 1998 EXAM CERVICAL CANCER SCREENING 2001 INFLUENZA VACCINE 01/28/2020 Implants Device Identifier Shelf Expiration Date Model / Serial / L ot Implanted Type Area Manufactur er 06/27/2023 [id number] / [id number] / [id number] Patch Dural 2x2in Lyoplant Cranial Brain AE SCULAP Bovine Pericardium Onlay - [id number] Implanted: Qty: 1 on 12/03/2018 by Romeo Mcdaniel MD at [facility] [id number] / NA / NA Mesh Cranial .6mm Large Temporal Skull ALFONZO- [place] Titanium Latex Free - Sna LP Implanted: Qty: 1 on 12/03/2018 by Romeo Mcdaniel MD at [facility] [id number] / NA / NA Plate Bone Level One Medium Curve Skull CAIOS -[employer] Craniofacial Bur Hole - Sna LP Implanted: Qty: 1 on 12/03/2018 by Romeo Mcdaniel MD at [facility] [id number] / NA / NA Plate Bone Level One Square Skull KLS-BLAYNE N Craniofacial 2x2 Hole Ultra Low - LP Sna Implanted: Qty: 1 on 12/03/2018 by Romeo Mcdaniel MD at [facility] [id number] / NA / NA Screw Bone Level One Titanium Skull KLS-MAR TIN Craniomaxillofacial Drill Free - LP Sna Implanted: Qty: 13 on 12/03/2018 by Romeo Mcdaniel MD at [facility] Results Not on filefrom Last 3 Months Insurance Type Payer Benefit Subscriber ID Effective Phone Address Plan / Dates Group HMO CIGNA CIGNA NON xxxxxxxxxxx 2017- PPO/EPO Present Advance Directives Patient Ice Guard Skating Rink Explanation Type Date Recorded Advance Directive/DPOA Date Inactivated Comments Code Status Date Activated 12/05/2018 12:16 PM Full Code 12/03/2018 12:27 PM Provider has discussed Code Status No, discussion no t w/Patient or Family? necessary based on Dx
--- OUTSIDE RECORDS SUMMARY | 2019-10-19 21:41 | XMS REPORT ---
Author Author Judith Martinez Organization [facility] Address [address] [place] [address] Care Team Providers Care Jewelry Maker Name Role Phone EDGARD Martinez Unavailable PROBLEMS Type Condition ICD9-CM Code UOI22-EX Code Onset Dates Condition S tatus SNOMED Code Problem Major depressive disorder, recurrent episode, severe F33.2 Active 491680820279 Problem Constipation, unspecified constipation type K59.00 Active 62525230 Problem Insomnia, unspecified type G47.00 Act julián [id number] Problem 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 Activ e [id number] Problem Anxiety F41.9 Active 97135053 Problem Gastroesophageal reflux disease with esophagitis K 21.0 Active 453113061 Problem Hypertension, essential I10 Active 54789934 Problem Generalized anxiety disorder F41.1 A ctive 13940671 Problem Other chronic pain G89.29 Active 8 6318381 ALLERGIES Substance Reaction Event Type Date Status Morphine Sulfate rash Drug Allergy Jun, Active ENCOUNTERS Encounter Location Date Diagnosis [address] [address] Mar, Cough R05 ; Fluid level behind tympanic membrane of both ears H65.93 and Viral upper respiratory tract infection J06.[address] [address]78 2[address] Dec, Wheezing R06.2 ; Impetigo L01.00 and Bronchitis J40 [facility] [address] [address] Dec, Bronchitis J40 [place] [address] [place] [id number] [address] Dec, Bronchiolitis J21.9 and Acute effusion of both middle ears H65.193 [place] [id number] [address] Nov, [facility] [place] [address] [address] Nov, Follow-up exam Z09 and Hypertension, essential I10 [facility] [place] [id number] [place] [address] Nov, [facility] [place] [id number] [place] [address] Nov, [facility] [place] [id number] [place] [address] Nov, Hypertension, essential I10 and 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 [facility] [place] [id number] [place] [address] Oct, [facility] [place] [id number] [place] [address] Oct, 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 ; Anxiety F41.9 and Other complicated headache syndrome G44.59 [facility] [id number] [place] [address] Oct, [facility] [place] [id number] [place] [address] Oct, Facial numbness R20.0 and Trigeminal 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.0 [facility] [place] [address] [place] [address] Oct, Trigeminal 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.0 [facility] [place] [id number] [place] [address] Oct, Generalized anxiety disorder F41.1 ; Hypertension, essential I10 ; Constipation, unspecified constipation type K59.00 ; Gastroesophageal reflux disease with esophagitis K21.0 ; Abscessed tooth K04.7 ; Other chronic pain G89.29 and Low back pain M54.5 [facility] [address] [facility] [id number] [address] [place] [address] Jul, Acute bronchitis, unspecifie d organism J20.[address] [id number] [address] Jul, Anxiety F41.9 and Major depr essive disorder, recurrent episode, severe F33.[address] [place] [address] Jul, [address] [id number] [address] Jul, [address] [id number] [address] Jun, Generalized anxiety disorder F41.1 ; Gastroesophageal reflux disease with esophagitis K21.0 and Chronic constipation K59.[address] [id number] [address] Jun, Primary hypertension I10 ; G eneralized anxiety disorder F41.1 and Gastroesophageal reflux disease, esophagitis presence not specified K21.[address] [place] [address] May, [address] [id number] [address] May, Elevated blood pressure read ing R03.[address] [place] [address] May, Primary hypertension I10 ; A nxiety F41.9 ; Gastroesophageal reflux disease, esophagitis presence not specified K21.9 ; Chronic constipation K59.09 ; Low back pain M54.5 ; Other chronic pain G89.29 an d Generalized abdominal pain R10.84 [facility] [address] [id number] [address] Apr, [facility] [address] [facility] [id number] [place] [address] Apr, [facility] [address] [facility] [id number] [address] [place] [address] Apr, [facility] [address] [facility] [id number] [address] [place] [address] Apr, Tachycardia R00.0 ; Facial n umbness R20.0 ; Generalized anxiety disorder F41.1 and Elevated blood pressure reading R03.0 [facility] [address] [facility] [id number] [address] [place] [address] 17 Mar, 2018 [facility] [address] [facility] [id number] [address] [place] [address] Mar, Generalized anxiety disorder F41.1 and Panic disorder [episodic paroxysmal anxiety] without agoraphobia F41.0 [facility] [address] [facility] [id number] [place] [address] 05 Mar, 2018 [facility] [address] [place] [id number] [place] [address] Mar, Lower back pain M54.5 [facility] [address] [place] [id number] [address] [place] [address] 08 Jan, 2018 [facility] [address] [facility] [id number] [address] [place] [address] Jan, [facility] [address] [address] Jan, Acute non-recurrent maxillar y sinusitis J01.00 and Gastroesophageal reflux disease with esophagitis K21.0 [facility] [address] [facility] [id number] [address] [place] [address] Dec, [facility] [address] [place] [id number] [place] [address] Dec, [facility] [address] [place] [address] [id number] [place] [address] Dec, Hypertension, essential I10 ; Anxiety F41.9 and Family history of hypothyroidism Z83.49 [facility] [address] [facility] [id number] [address] [place] [address] 18 Dec, 2017 Allergic rhinitis, unspecifi ed seasonality, unspecified trigger J30.9 and Bronchiolitis J21.9 [place] [address] [address] Dec, Hypertension, essential I10 ; Anxiety F41.9 and Family history of hypothyroidism Z83.49 [place] [address] [address] August, Bronchitis J40 [place] [address] [address] Apr, Wheezing R06.2 ; Body aches R52 and Acute bronchitis, unspecified organism J20.[address] [address] Mar, Other viral agents as the ca use of diseases classified elsewhere B97.89 and Acute upper respiratory infection, unspecified J06.[address] [address] August, [place] [address] [address] August, [address] [address] August, Major depressive disorder, r ecurrent episode, severe F33.2 ; Panic disorder F41.0 ; Insomnia, unspecified type G47.00 ; Gastroesophageal reflux disease with esophagitis K21.0 ; Low back pain M54.5 ; Constipation, unspecified constipation type K59.00 and Fatigue, unspecified type R53.83 [place] [address] [address] Jul, Sore throat J02.9 and Exposu re to Streptococcal pharyngitis Z20.[address] [address] Feb, [address] [address] Nov, Major depressive disorder, r ecurrent episode, severe F33.2 ; Insomnia, unspecified type G47.00 ; Gastroesophageal reflux disease with esophagitis K21.0 ; Low back pain M54.5 ; Constipation, unspecified constipation type K59.00 and Vaginal discharge N89.8 [place] [id number] [id number] [address] [place] [address] Oct, Gastroesophageal reflux dise ase without esophagitis K21.9 [place] [address] [facility] [id number] [address] [place] [address] Oct, [place] [address] [facility] [id number] [address] [place] [address] Sep, Major depressive disorder, r ecurrent episode, severe F33.2 ; Panic disorder F41.0 ; Low back pain M54.5 and Vaginal odor N89.8 [place] [address] [place] [id number] [address] [place] [address] Sep, [place] [address] [place] [id number] [place] [address] August, Frequent urination R35.0 ; E ncounter to establish care Z76.89 ; Abscess L02.91 ; Insomnia, unspecified type G47.00 ; Anxiety F41.9 ; Low back pain M54.5 ; Other chronic pain G89.29 and Constipation, unspecified constipation type K59.00 [place] [address] [facility] [id number] [address] [place] [address] Apr, Major depressive disorder, r ecurrent episode, severe F33.2 and Panic disorder F41.0 [place] [address] [facility] [id number] [address] [place] [address] Apr, [place] [address] [place] [id number] [place] [address] Apr, Major depressive disorder, r ecurrent episode, severe F33.2 and Panic disorder F41.0 [place] [address] [facility] [id number] [address] [place] [address] Jul, [facility] [address] [id number] [address] [place] [address], [place] [address] Jul, [facility] [address] [id number] [address] [place] [address], [place] [address] May, [facility] [address] [id number] [address] [place] [address], [place] [address] 17 May, 2014 [facility] [address] [id number] [address] [place] [address], [place] [address] May, [facility] [address] [id number] [address] [place] [address], [place] [address] May, [facility] [address] [id number] [address] [place] [address], [place] [address] Apr, [facility] [address] [id number] [address] [place] [address], [place] [address] Apr, [facility] [address] [id number] [address] [place] [address], [place] [address] 16 Apr, 2014 [facility] [address] [id number] [address] [place] [address], [place] [address] Apr, [facility] [address] [id number] [address] [place] [address], [place] [address] 16 Apr, 2014 [facility] [address] [id number] [address] [place] [address], [place] [address] 16 Apr, 2014 [facility] [address] [id number] [address] [place] [address], [place] [address] 14 Apr, 2014 [facility] [address] [id number] [address] [place] [address], [place] [address] Apr, [facility] [address] [id number] [address] [place] [address], [place] [address] Apr, [facility] [address] [id number] [address] [place] [address], [place] [address] Apr, [facility] [address] [id number] [address] [place] [address] Jan, [facility] [address] [id number] [address] [place] [address] Jan, [facility] [address] [id number] [address] [place] [address] Nov, [facility] [address] [id number] [address] [place] [address] Nov, [facility] [address] [id number] [address] [place] [address] Oct, [facility] [address] [id number] [address] [place] [address] Oct, [facility] [address] [id number] [address] [place] [address] Dec, [facility] [address] [id number] [address] [place] [address] Sep, [facility] [address] [id number] [address] [place] [address] Jul, [facility] [address] [id number] [address] [place] [address] Jun, IMMUNIZATIONS No Known Immunizations SOCIAL HISTORY Never Assessed REASON FOR VISIT ANXIETY F/U, anxiety follow up, anxiety ok medication is helping, x4- 5 days, si nce scope has not been able to eat much, acid reflux, discuss prescription for o meprazole PLAN OF CARE Activity Details Follow Up prn,6 Months Reason: VITAL SIGNS Height 64.25 in 2018-07-25 Weight 146 lbs 2018-07-25 Temperature 98.0 degrees Fahrenheit 2018-07-25 Heart Rate 90 bpm 2018-07-25 Oximetry 99 % 2018-07-25 BMI 24.86 kg/m2 2018-07-25 Blood pressure systolic 140 mmHg 2018-07-25 Blood pressure diastolic 94 mmHg 2018-07-25 MEDICATIONS Medication Instructions Dosage Frequency Start Date End Date Duration S tatus Linzess 72 MCG Orally Once a day 1 capsule on an empty stomach 24h Jun, 30 day(s) Active HydrOXYzine HCl 50 MG Orally every 4 hrs 1/2 to 1 tablet as needed 4h 5 Active Lisinopril 10 MG Orally Once a day 1 tablet 24h 15 May, 2018 Active Omeprazole 40 MG Orally Once a day 1 capsule 24h Jun, 30 day(s) Not-Taking Omeprazole 40 MG Orally Once a day 1 capsule 24h Jun, 30 day(s) Active Toprol XL 100 MG Orally Once a day 1 tablet 24h 20 May, 2018 Active Acid Control Active RESULTS No Results PROCEDURES No Known procedures INSTRUCTIONS MEDICATIONS ADMINISTERED No Known Medications MEDICAL (GENERAL) HISTORY Type Description Date Medical History htn Medical History acid reflux Medical History anxiety Medical History Hiatal hernia Medical History Meningioma of cerebellum Surgical History Appendectomy 09/2014 Surgical History Cholecystectomy 09/2015 Surgical History 2002 Surgical History partial hysterectomy 2004 Surgical History dilatation and curettage x2 Surgical History meningioma tumor removal 11/2018 Hospitalization History ER [facility] - High BP 12/2017 Hospitalization History appendectomy Hospitalization History Hospitalization History hysterectomy-partial Hospitalization History Surgery at 12/03/18
--- OUTSIDE RECORDS SUMMARY | 2019-10-19 21:42 | XMS REPORT ---
Author Author Judith Brunson Doctor Organization [facility] Address Unknown Phone Unavailable Care Team Providers Care Ict Systems Test Engineer Name Role Phone Migration, Doctor Unavailable Unavailable PROBLEMS Type Condition ICD9-CM Code [id number] Code Onset Dates Condition S tatus SNOMED Code Problem Major depressive disorder, recurrent episode, severe F33.2 Active 504756626378 Problem Constipation, unspecified constipation type K59.00 Active 19018033 Problem Insomnia, unspecified type G47.00 Act julián 156162396 Problem 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 Activ e [id number] Problem Anxiety F41.9 Active 81596035 Problem Gastroesophageal reflux disease with esophagitis K 21.0 Active 186396064 Problem Hypertension, essential I10 Active 82069530 Problem Generalized anxiety disorder F41.1 A ctive 84238915 Problem Other chronic pain G89.29 Active 8 5021537 ALLERGIES No Information ENCOUNTERS Encounter Location Date Diagnosis [place] [address] 4965 [address] Mar, Cough R05 ; Fluid level behind tympanic membrane of both ears H65.93 and Viral upper respiratory tract infection J06.[address] 8319 [address] Dec, Wheezing R06.2 ; Impetigo L01.00 and Bronchitis J40 [facility] [address] [place] [id number] [place], [place] [id number] Dec, Bronchitis J40 [facility] [place] [address] [address] Dec, Bronchiolitis J21.9 and Acute effusion of both middle ears H65.193 [facility] [address] 3511 [address] Nov, [facility] [address] [place] [id number] [address] Nov, Follow-up exam Z09 and Hypertension, essential I10 [facility] [place] [address] [place] [id number] [address] Nov, [facility] [place] [address] [place] [id number] [address] Nov, [facility] [place] [address] [place] [address] Nov, Hypertension, essential I10 and 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 [facility] [place] [address] [place] [id number] [place] [address] Oct, [facility] [place] [address] [place] [id number] [place] [address] Oct, 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 ; Anxiety F41.9 and Other complicated headache syndrome G44.59 [facility] [address] [place] [id number] [place] [address] Oct, [facility] [place] [address] [place] [address] Oct, Facial numbness R20.0 and Trigeminal 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.0 [facility] [place] [address] [place] [address] Oct, Trigeminal 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.0 [facility] [place] [address] [place] [address] Oct, Generalized anxiety disorder F41.1 ; Hypertension, essential I10 ; Constipation, unspecified constipation type K59.00 ; Gastroesophageal reflux disease with esophagitis K21.0 ; Abscessed tooth K04.7 ; Other chronic pain G89.29 and Low back pain M54.5 [facility]ALK IN [facility] [address] [place] [id number] [place] [address] Jul, Acute bronchitis, unspecifie d organism J20.9 [facility] [place] [address] [id number] [address] Jul, Anxiety F41.9 and Major depr essive disorder, recurrent episode, severe F33.[address] [id number] [address] Jul, [address] 340 [place] [address] Jul, [address] [id number] [address] Jun, Generalized anxiety disorder F41.1 ; Gastroesophageal reflux disease with esophagitis K21.0 and Chronic constipation K59.[address] [id number] [address] Jun, Primary hypertension I10 ; G eneralized anxiety disorder F41.1 and Gastroesophageal reflux disease, esophagitis presence not specified K21.[address] 340 [id number] [address] May, [address] 340 [id number] [address] May, Elevated blood pressure read ing R03.[address] [id number] [address] May, Primary hypertension I10 ; A nxiety F41.9 ; Gastroesophageal reflux disease, esophagitis presence not specified K21.9 ; Chronic constipation K59.09 ; Low back pain M54.5 ; Other chronic pain G89.29 an d Generalized abdominal pain R10.84 [facility] [place] [address] [id number] [address] Apr, [facility] [place] [address] [place] [id number] [place] [address] Apr, [facility] [address] [facility] [id number] [address] [place] [address] Apr, [facility] [address] [facility] [id number] [address] [place] [address] Apr, Tachycardia R00.0 ; Facial n umbness R20.0 ; Generalized anxiety disorder F41.1 and Elevated blood pressure reading R03.0 [facility] [address] [place] [id number] [address] [place] [address] 17 Mar, 2018 [facility] [address] [facility] [id number] [place] [address] Mar, Generalized anxiety disorder F41.1 and Panic disorder [episodic paroxysmal anxiety] without agoraphobia F41.0 [facility] [address] [place] [id number] [place] [address] 05 Mar, 2018 [facility] [address] [facility] [id number] [address] [place] [address] Mar, Lower back pain M54.5 [facility] [address] [place] [id number] [place] [address] Jan, [facility] [address] [place] [id number] [place] [address] Jan, [facility] [address] [address] Jan, Acute non-recurrent maxillar y sinusitis J01.00 and Gastroesophageal reflux disease with esophagitis K21.0 [place] [address] [address] Dec, [facility] [address] [address] Dec, [facility] [address] [address] Dec, Hypertension, essential I10 ; Anxiety F41.9 and Family history of hypothyroidism Z83.49 [facility] [address] [place] [id number] [place] [address] 18 Dec, 2017 Allergic rhinitis, unspecifi ed seasonality, unspecified trigger J30.9 and Bronchiolitis J21.9 [facility] [address] [place] [id number] [address] [place] [address] 13 Dec, 2017 Hypertension, essential I10 ; Anxiety F41.9 and Family history of hypothyroidism Z83.49 [place] [address] [address] August, Bronchitis J40 [place] [address] [address] Apr, Wheezing R06.2 ; Body aches R52 and Acute bronchitis, unspecified organism J20.9 [place] [address] [address] Mar, Other viral agents as the ca use of diseases classified elsewhere B97.89 and Acute upper respiratory infection, unspecified J06.9 [place] [address] [address] August, [place] [address] [address] August, [place] [address] [address] August, Major depressive disorder, r ecurrent episode, severe F33.2 ; Panic disorder F41.0 ; Insomnia, unspecified type G47.00 ; Gastroesophageal reflux disease with esophagitis K21.0 ; Low back pain M54.5 ; Constipation, unspecified constipation type K59.00 and Fatigue, unspecified type R53.83 [place] [address] [address] Jul, Sore throat J02.9 and Exposu re to Streptococcal pharyngitis Z20.818 [place] [address] [place] [id number] [place] [address] Feb, [address] [address] Nov, Major depressive disorder, r ecurrent episode, severe F33.2 ; Insomnia, unspecified type G47.00 ; Gastroesophageal reflux disease with esophagitis K21.0 ; Low back pain M54.5 ; Constipation, unspecified constipation type K59.00 and Vaginal discharge N89.8 [facility] [address] [id number] [address] [place] [address] Oct, Gastroesophageal reflux dise ase without esophagitis K21.9 [facility] [address] [id number] [address] [place] [address] Oct, [facility] [address] [id number] [address] [place] [address] Sep, Major depressive disorder, r ecurrent episode, severe F33.2 ; Panic disorder F41.0 ; Low back pain M54.5 and Vaginal odor N89.8 [place] [address] [id number] [address] [place] [address] Sep, [place] [address] [id number] [address] [place] [address] August, Frequent urination R35.0 ; E ncounter to establish care Z76.89 ; Abscess L02.91 ; Insomnia, unspecified type G47.00 ; Anxiety F41.9 ; Low back pain M54.5 ; Other chronic pain G89.29 and Constipation, unspecified constipation type K59.00 [place] [address] [id number] [address] [place] [address] Apr, Major depressive disorder, r ecurrent episode, severe F33.2 and Panic disorder F41.0 [facility] [address] [id number] [address] [place] [address] Apr, [facility] [address] [id number] [address] [place] [address] Apr, Major depressive disorder, r ecurrent episode, severe F33.2 and Panic disorder F41.0 [place] [address] [id number] [address] [place] [address] Jul, [facility] [address] [id number] [address] [place] [address] Jul, [facility] [address] [id number] [address] [place] [address], [place] [address] 17 May, 2014 [facility] [address] [id number] [address] [place] [address], [place] [address] 17 May, 2014 [facility] [address] [id number] [address] [place] [address], [place] [address] 17 May, 2014 [facility] [address] [id number] [address] [place] [address], [place] [address] 17 May, 2014 [facility] [address] [id number] [address] [place] [address], [place] [address] 20 Apr, 2014 [facility] [address] [id number] [address] [place] [address], [place] [address] Apr, [facility] [address] [id number] [address] [place] [address], [place] [address] 16 Apr, 2014 [facility] [address] [id number] [address] [place] [address], [place] [address] 16 Apr, 2014 [facility] [address] [id number] [address] [place] [address], [place] [address] 16 Apr, 2014 [facility] [address] [id number] [address] [place] [address], [place] [address] 16 Apr, 2014 [facility] [address] [id number] [address] [place] [address], [place] [address] 14 Apr, 2014 [facility] [address] [id number] [address] [place] [address], [place] [address] 14 Apr, 2014 [facility] [address] [id number] [address] [place] [address], [place] [address] Apr, [facility] [address] [id number] [address] [place] [address], [place] [address] Apr, [facility] [address] [id number] [address] [place] [address], [place] [address] 16 Jan, 2014 [facility] [address] [id number] [address] [place] [address], [place] [address] Jan, [facility] [address] [id number] [address] [place] [address] Nov, [facility] [address] [id number] [address] [place] [address] Nov, [facility] [address] [id number] [address] [place] [address] Oct, [facility] [address] [id number] [address] [place] [address] Oct, [facility] [address] [facility] [id number] [address] [place] [address] Dec, [facility] [address] [facility] [id number] [address] [place] [address] Sep, [facility] [address] [facility] [id number] [address] [place] [address] Jul, [facility] [address] [facility] [id number] [address] [place] [address] Jun, IMMUNIZATIONS No Known Immunizations SOCIAL HISTORY [...] Hospitalization History hysterectomy-partial Hospitalization History Surgery at [facility] 12/03/18
--- OUTSIDE RECORDS SUMMARY | 2019-10-19 21:42 | XMS REPORT ---
Author Author uJdith Martinez Organization [facility] Address [address] [place] [address] Care Team Providers Care Licensing Officer Name Role Phone EDGARD Martinez Unavailable PROBLEMS Type Condition ICD9-CM Code [id number] Code Onset Dates Condition S tatus SNOMED Code Problem Major depressive disorder, recurrent episode, severe F33.2 Active 649571341400 Problem Constipation, unspecified constipation type K59.00 Active 35726462 Problem Insomnia, unspecified type G47.00 Act julián [id number] Problem 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 Activ e [id number] Problem Anxiety F41.9 Active 27820829 Problem Gastroesophageal reflux disease with esophagitis K 21.0 Active 567779507 Problem Hypertension, essential I10 Active 14669243 Problem Generalized anxiety disorder F41.1 A ctive 24243912 Problem Other chronic pain G89.29 Active 8 1355036 ALLERGIES No Information ENCOUNTERS Encounter Location Date Diagnosis [address] [address] Mar, Cough R05 ; Fluid level behind tympanic membrane of both ears H65.93 and Viral upper respiratory tract infection J06.[address] [place] [id number] [place], [place] [address] Dec, Wheezing R06.2 ; Impetigo L01.00 and Bronchitis J40 [facility] [id number] [place] [address] 2[address] Dec, Bronchitis J40 [address] [address] Dec, Bronchiolitis J21.9 and Acute effusion of both middle ears H65.[address] Nov, [address] [id number] [place], [place] [address] Nov, Follow-up exam Z09 and Hypertension, essential I10 [facility] [place] [address] [id number] [address] Nov, [facility] [place] [id number] [place] [address] Nov, [facility] [place] [id number] [place] [address] Nov, Hypertension, essential I10 and 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 [facility] [place] [id number] [place] [address] Oct, [facility] [place] [id number] [place] [address] 2[address] Oct, 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 ; Anxiety F41.9 and Other complicated headache syndrome G44.59 [facility] [id number] [place] [address] Oct, [facility] [place] [id number] [place], [place] [id number] 2-[address] Oct, Facial numbness R20.0 and Trigeminal 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.0 [facility] [place] [id number] [place] [address] Oct, Trigeminal 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.0 [facility] [place] [id number] [place] [address] 2[address] Oct, Generalized anxiety disorder F41.1 ; Hypertension, essential I10 ; Constipation, unspecified constipation type K59.00 ; Gastroesophageal reflux disease with esophagitis K21.0 ; Abscessed tooth K04.7 ; Other chronic pain G89.29 and Low back pain M54.5 [facility] [address] [facility] [id number] [address] [place] [address] Jul, Acute bronchitis, unspecifie d organism J20.[id number] [place] [address] Jul, Anxiety F41.9 and Major depr essive disorder, recurrent episode, severe F33.[id number] [address] Jul, [id number] [address] Jul, [address] 340 [id number] [address] Jun, Generalized anxiety disorder F41.1 ; Gastroesophageal reflux disease with esophagitis K21.0 and Chronic constipation K59.[address] [id number] [address] Jun, Primary hypertension I10 ; G eneralized anxiety disorder F41.1 and Gastroesophageal reflux disease, esophagitis presence not specified K21.[address] [id number] [address] May, [address] [id number] [address] May, Elevated blood pressure read ing R03.[address] [id number] [address] May, Primary hypertension I10 ; A nxiety F41.9 ; Gastroesophageal reflux disease, esophagitis presence not specified K21.9 ; Chronic constipation K59.09 ; Low back pain M54.5 ; Other chronic pain G89.29 an d Generalized abdominal pain R10.84 [facility] [place] [address] [facility] [id number] [place] [address] Apr, [facility] [address] [facility] [id number] [place] [address] Apr, [facility] [address] [facility] [id number] [address] [place] [address] Apr, [facility] [address] [facility] [id number] [address] [place] [address] Apr, Tachycardia R00.0 ; Facial n umbness R20.0 ; Generalized anxiety disorder F41.1 and Elevated blood pressure reading R03.0 [facility] [address] [facility] [id number] [address] [place] [address] Mar, [facility] [address] [facility] [id number] [address] [place] [address] Mar, Generalized anxiety disorder F41.1 and Panic disorder [episodic paroxysmal anxiety] without agoraphobia F41.0 [facility] [address] [facility] [id number] [address] [place] [address] Mar, [facility] [address] [facility] [id number] [place] [address] Mar, Lower back pain M54.5 [facility] [address] [id number] [place] [address] Jan, [facility] [id number] [place] [address] Jan, [facility] [id number] [place] [address] Jan, Acute non-recurrent maxillar y sinusitis J01.00 and Gastroesophageal reflux disease with esophagitis K21.0 [facility] [id number] [place] [address] Dec, [facility] [address] [facility] [id number] [address] [place] [address] Dec, [facility] [address] [facility] [id number] [address] [place] [address] 20 Dec, 2017 Hypertension, essential I10 ; Anxiety F41.9 and Family history of hypothyroidism Z83.49 [facility] [address] [facility] [id number] [address] [place] [address] 18 Dec, 2017 Allergic rhinitis, unspecifi ed seasonality, unspecified trigger J30.9 and Bronchiolitis J21.9 [facility] [address] [address] Dec, Hypertension, essential I10 ; Anxiety F41.9 and Family history of hypothyroidism Z83.[address] [address] August, Bronchitis J40 [address] [address] Apr, Wheezing R06.2 ; Body aches R52 and Acute bronchitis, unspecified organism J20.[address] [address] Mar, Other viral agents as the ca use of diseases classified elsewhere B97.89 and Acute upper respiratory infection, unspecified J06.[address] [address] August, [address] [address] August, [address] [address] August, Major depressive disorder, r ecurrent episode, severe F33.2 ; Panic disorder F41.0 ; Insomnia, unspecified type G47.00 ; Gastroesophageal reflux disease with esophagitis K21.0 ; Low back pain M54.5 ; Constipation, unspecified constipation type K59.00 and Fatigue, unspecified type R53.83 [place] [address] [place] [id number] [place] [address] Jul, Sore throat J02.9 and Exposu re to Streptococcal pharyngitis Z20.[address] [address] Feb, [address] [address] Nov, Major depressive disorder, r ecurrent episode, severe F33.2 ; Insomnia, unspecified type G47.00 ; Gastroesophageal reflux disease with esophagitis K21.0 ; Low back pain M54.5 ; Constipation, unspecified constipation type K59.00 and Vaginal discharge N89.8 [place] [address] [facility] [id number] [address] [place] [address] Oct, Gastroesophageal reflux dise ase without esophagitis K21.9 [place] [address] [facility] [id number] [address] [place] [address] Oct, [place] [address] [place] [id number] [address] [place] [address] Sep, Major depressive disorder, r ecurrent episode, severe F33.2 ; Panic disorder F41.0 ; Low back pain M54.5 and Vaginal odor N89.8 [place] [address] [place] [id number] [place] [address] Sep, [place] [address] [address] August, Frequent urination R35.0 ; E ncounter to establish care Z76.89 ; Abscess L02.91 ; Insomnia, unspecified type G47.00 ; Anxiety F41.9 ; Low back pain M54.5 ; Other chronic pain G89.29 and Constipation, unspecified constipation type K59.00 [place] [address] [place] [id number] [place] [address] Apr, Major depressive disorder, r ecurrent episode, severe F33.2 and Panic disorder F41.0 [place] [address] [place] [id number] [place] [address] Apr, [place] [address] [place] [id number] [place] [address] Apr, Major depressive disorder, r ecurrent episode, severe F33.2 and Panic disorder F41.0 [place] [address] [facility] [id number] [address] [place] [address] Jul, [place] [address] [place] [id number] [place] [address] 13 Jul, 2014 [facility] [address] [id number] [address] [place] [address], [place] [address] 17 May, 2014 [facility] [address] [id number] [address] [place] [address], [place] [address] 17 May, 2014 [facility] [address] [id number] [address] [place] [address], [place] [address] 17 May, 2014 [facility] [address] [id number] [address] [place] [address], [place] [address] 17 May, 2014 [facility] [address] [id number] [address] [place] [address], [place] [address] Apr, [facility] [address] [id number] [address] [place] [address], [place] [address] Apr, [facility] [address] [id number] [address] [place] [address], [place] [address] 16 Apr, 2014 [facility] [address] [id number] [address] [place] [address], [place] [address] 16 Apr, 2014 [facility] [address] [id number] [address] [place] [address], [place] [address] 16 Apr, 2014 [facility] [address] [id number] [address] [place] [address], [place] [address] 16 Apr, 2014 [facility] [address] [id number] [address] [place] [address], [place] [address] 14 Apr, 2014 [facility] [address] [id number] [address] [place] [address] 14 Apr, 2014 [facility] [address] [id number] [address] [place] [address], [place] [address] Apr, [facility] [address] [id number] [address] [place] [address], [place] [address] 13 Apr, 2014 [facility] [address] [id number] [address] [place] [address], [place] [address] Jan, [facility] [address] [id number] [address] [place] [address] Jan, [facility] [address] [id number] [address] [place] [address] Nov, [facility] [address] [id number] [address] [place] [address] Nov, [facility] [address] [id number] [address] [place] [address] Oct, [facility] [address] [id number] [address] [place] [address] Oct, [facility] [address] [id number] [address] [place] [address] Dec, [facility] [address] [id number] [address] [place] [address] Sep, [facility] [address] [id number] [address] [place] [address] Jul, [facility] [address] [id number] [address] [place] [address] Jun, IMMUNIZATIONS No Known Immunizations SOCIAL HISTORY Never Assessed REASON FOR VISIT Medication question PLAN OF CARE VITAL SIGNS MEDICATIONS Medication Instructions Dosage Frequency Start Date End Date Duration S tatus Ranitidine 150 Max Strength 150 MG Orally at bedtime 1 tablet at be dtime Jul, 30 day(s) Active RESULTS No Results PROCEDURES [...]
--- OUTSIDE RECORDS SUMMARY | 2019-10-19 21:44 | XMS REPORT | Continuity of Care Document ---
Demographics Preferred Language Unknown Marital Status Unknown Samaritan Affiliation Unknown Race Unknown Ethnic Group Unknown Author Organization Unknown Address Unknown Phone Unavailable Allergies Active Description Code Type Severity Reaction Onset Reported/Identified Relationship to Patient Clinical Status Yes morphine [id number] Drug Allergy Unknown N/A 10/04/2015 Medications There [...] RECURRENT SEVERE W/O PSYCHOTIC BEHAVIOR 07/17/2012 MADL CHANNELER OUTSOLE, TIARRA L 296 .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/O PSYCHOTIC BEHAVIOR 07/17/2012 MADL CHANNELER OUTSOLE, TIARRA L 296 .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/O PSYCHOTIC BEHAVIOR 07/17/2012 MADL CHANNELER OUTSOLE, TIARRA L 296 .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/O PSYCHOTIC BEHAVIOR 07/17/2012 KHRIS SCHUMACHER DO K 296.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/O PSYCHOTIC BEHAVIOR 09/29/2012 ADELE THRASHER MD Ot 465.9 ACUTE URI NOS 09/29/2012 ADELE THRASHER MD Ot 786.2 COUGH 10/08/2012 ENDY LANDNETTEA K V05.3 HEP B (ADULT) DX 10/08/2012 MADL CHANNELER OUTSOLE, TIARRA L V05 .3 HEP B (ADULT) DX 10/08/2012 MADL CHANNELER OUTSOLE, TIARRA L V05 .3 HEP B (ADULT) DX 10/08/2012 MADL CHANNELER OUTSOLE, TIARRA L V05 .3 HEP B (ADULT) DX 10/08/2012 ENDY LANDNETTEA K V05.3 HEP B (ADULT) DX 04/24/2014 [...] DO Ot 401.9 HYPERTENSION NOS 05/11/2014 MADL CHANNELER OUTSOLE, TIARRA L 780 .79 OTHER MALAISE AND FATIGUE 05/11/2014 MADL CHANNELER OUTSOLE, TIARRA L 780 .79 OTHER MALAISE AND FATIGUE 05/11/2014 MADL CHANNELER OUTSOLE, TIARRA L 780 .79 OTHER MALAISE AND FATIGUE 05/11/2014 SCHUMACHER DO KHIRS K 780.79 OTHER MALAISE AND FATIGUE 05/18/2014 MADL CHANNELER OUTSOLE, TIARRA L 288 .60 LEUKOCYTOSIS UNSPECIFIED 05/18/2014 TIARRA NAVA APRN L 305 .1 TOBACCO ABUSE 05/18/2014 TIARRA NAVA APRN L 401 .1 BENIGN ESSENTIAL HYPERTENSION 05/18/2014 TIARRA NAVA APRN L 462 ACUTE PHARYNGITIS 05/18/2014 NETTE SCHUMACHER DOA K 288.60 LEUKOCYTOSIS UNSPECIFIED 05/18/2014 NETTE SCHUMACHER DOA K 305.1 TOBACCO ABUSE 05/18/2014 NETTE SCHUMACHER DOA K 401.1 BENIGN ESSENTIAL HYPERTENSION 05/18/2014 NETTE SCHUMACHER DOA K 462 ACUTE PHARYNGITIS 06/15/2014 NETTE SCHUMACHER DOA K 530.81 GERD 06/15/2014 NETTE SCHUMACHER DOA K 623.5 LEUKORRHEA NOT SPECIFIED INFECTIVE 06/15/2014 NETTE SCHUMACHER DOA K 780.60 FEVER, UNSPECIFIED 08/01/2014 Ot 620.2 [...] NICOTINE DEPENDENCE, CIGARETTES, UNCOMPL 10/03/2015 ZAC VICENTE CHANNELER OUTSOLE Ot K80.00 CALCULUS OF GALLBLADDER W ACUTE CHOLECYS 10/05/2015 ZAC VICENTE CHANNELER OUTSOLE Ot F17.210 NICOTINE DEPENDENCE, CIGARETTES, UNCOMPL 10/05/2015 ZAC VICENTE CHANNELER OUTSOLE Ot K80.00 CALCULUS OF GALLBLADDER W ACUTE CHOLECYS 10/05/2015 AMNA PINA, RONALD Spicer Ot K80.10 CALCULUS OF GALLBLADDER W CHRONIC CHOLEC 10/19/2015 AMNA IPNA, RONALD Spicer Ot K80.10 CALCULUS OF GALLBLADDER [...] BRONCHITIS, NOT SPECIFIED ACUTE OR CH 12/30/2016 AZC VICENTE APRN Ot F17.210 NICOTINE DEPENDENCE, CIGARETTES, UNCOMPL 12/30/2016 ZAC VICENTE APRN Ot M25.531 PAIN IN RIGHT WRIST 12/30/2016 ZAC VICENTE APRN Ot S66.911A STRAIN OF UNSP MUSC/FASC/TEND AT WRS/HND 12/30/2016 ZAC VICENTE APRN Ot W01.0XXA FALL SAME LEV FROM SLIP/TRIP W/O STRIKE 12/30/2016 ZAC VICENTE APRN Ot Y92.007 [place] [facility] 12/30/2016 ZAC VICENTE APRN Ot Z80.41 FAMILY [...] ZAC VICENTE APRN Ot S66.911A STRAIN OF [facility] MUSC/FASC/TEND AT S/HND 01/01/2017 ZAC VICENTE APRN Ot W01.0XXA FALL SAME LEV FROM SLIP/TRIP W/O STRIKE 01/01/2017 ZAC VICENTE APRN Ot Y92.007 [facility] 01/01/2017 ZAC VICENTE APRN Ot Z80.41 [...] ZAC VICENTE APRN Ot S66.911A STRAIN OF [facility] MUSC/FASC/TEND AT S/HND 01/01/2017 ZAC VICENTE APRN Ot W01.0XXA FALL SAME LEV FROM SLIP/TRIP W/O STRIKE 01/01/2017 ZAC VICENTE APRN Ot Y92.007 [place] [facility] RESI 01/01/2017 ZAC VICENTE APRN Ot [...] ZAC VICENTE APRN Ot S66.911A STRAIN OF [facility] MUSC/FASC/TEND AT [facility]/HND 01/01/2017 ZAC VICENTE APRN Ot W01.0XXA FALL SAME LEV FROM SLIP/TRIP W/O STRIKE 01/01/2017 ZAC VICENTE APRN Ot Y92.007 [place] [facility] RESI 01/01/2017 ZAC VICENTE APRN Ot [...] PAIN IN RIGHT WRIST 01/05/2017 ZAC VICENTE CHANNELER OUTSOLE Ot S66.911A [facility] AT [facility]/HND 01/05/2017 ZAC VICENTE APRN Ot W01.0XXA FALL SAME LEV FROM SLIP/TRIP W/O STRIKE 01/05/2017 ZAC VICENTE APRN Ot Y92.007 [place] [facility] NON-INSTITUT RESI [...] Z87.891 PERSONAL HISTORY OF NICOTINE DEPENDENCE 01/01/2018 USKI SALES MD Ot Z88. 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 07/18/2018 EDGARD LAZO Ot [...] 06/20/2019 EDGARD LAZO Ot K59.09 OTHER CONSTIPATION 06/20/2019 DIXIE, NEDRA BEYER Ot I10 ESSENTIAL (PRIMARY) HYPERTENSION 06/20/2019 NEDRA COLIN Ot K21.9 GASTRO-ESOPHAGEAL REFLUX DISEASE WITHOUT 06/20/2019 NEDRA COLIN Ot M25.572 PAIN IN LEFT ANKLE AND JOINTS OF LEFT FO 06/20/2019 NEDRA COLIN Ot S93.492A SPRAIN OF OTHER LIGAMENT OF LEFT ANKLE, 06/20/2019 NEDRA COLIN Ot X50.1XXA OVEREXERTION FROM PROLONGED STATIC OR AW 06/20/2019 NEDRA COLIN Ot Z23 ENCOUNTER FOR IMMUNIZATION 06/20/2019 NEDRA COLIN Ot Z80.41 FAMILY HISTORY OF MALIGNANT NEOPLASM OF 06/20/2019 NEDRA COLIN Ot Z87.891 PERSONAL HISTORY OF NICOTINE DEPENDENCE 06/20/2019 NEDRA COLIN Ot Z88.5 ALLERGY STATUS TO NARCOTIC AGENT STATUS 06/24/2019 DIXIE, NEDRA ELAINEP Ot I10 ESSENTIAL (PRIMARY) HYPERTENSION 06/24/2019 DIXIE, NEDRA ELAINEP Ot K21.9 GASTRO-ESOPHAGEAL REFLUX DISEASE WITHOUT 06/24/2019 DIXIE, NEDRA ELAINEP Ot M25.572 PAIN IN LEFT ANKLE AND JOINTS OF LEFT FO 06/24/2019 DIXIE, NEDRA ELAINEP Ot S93.492A SPRAIN OF OTHER LIGAMENT OF LEFT ANKLE, 06/24/2019 DIXIE, NEDRA ELAINEP Ot X50.1XXA OVEREXERTION FROM PROLONGED STATIC OR AW 06/24/2019 DIXIE, NEDRA ELAINEP Ot Z23 ENCOUNTER FOR IMMUNIZATION 06/24/2019 DIXIE, NEDRA ELAINEP Ot Z80.41 FAMILY HISTORY OF MALIGNANT NEOPLASM OF 06/24/2019 DIXIE, NEDRA ELAINEP Ot Z87.891 PERSONAL HISTORY OF NICOTINE DEPENDENCE 06/24/2019 DIXIE, NEDRA ELAINEP Ot Z88.5 ALLERGY STATUS TO NARCOTIC AGENT STATUS 06/30/2019 RACHEL PALMA MD Ot I10 ESSENTIAL (PRIMARY) HYPERTENSION 06/30/2019 RACHEL PALMA MD Ot K21.0 GASTRO-ESOPHAGEAL REFLUX DISEASE WITH ES 06/30/2019 RACHEL PALMA MD Ot K44.9 DIAPHRAGMATIC HERNIA WITHOUT OBSTRUCTION 06/30/2019 RACHEL PALMA MD Ot R07.8 1 PLEURODYNIA 06/30/2019 RACHEL PALMA MD Ot R07.9 CHEST PAIN, UNSPECIFIED 06/30/2019 RACHEL PALMA MD Ot R11.2 NAUSEA WITH VOMITING, UNSPECIFIED 06/30/2019 RACHEL PALMA MD Ot Z77.2 2 CNTCT W AND EXPSR TO ENVIRON TOBACCO SMO 06/30/2019 RACHEL PALMA MD Ot Z85.4 3 PERSONAL HISTORY OF MALIGNANT NEOPLASM O 06/30/2019 RACHEL PALMA MD Ot Z88.5 ALLERGY STATUS TO NARCOTIC AGENT STATUS 07/03/2019 RACHEL PALMA MD Ot I10 ESSENTIAL (PRIMARY) HYPERTENSION 07/03/2019 RACHEL PALMA MD Ot K21.0 GASTRO-ESOPHAGEAL REFLUX DISEASE WITH ES 07/03/2019 RACHEL PALMA MD Ot K44.9 DIAPHRAGMATIC HERNIA WITHOUT OBSTRUCTION 07/03/2019 RACHEL PALMA MD Ot R07.8 1 PLEURODYNIA 07/03/2019 RACHEL PALMA MD, Ot R07.9 CHEST PAIN, UNSPECIFIED 07/03/2019 RACHEL PALMA MD, Ot R11.2 NAUSEA WITH VOMITING, UNSPECIFIED 07/03/2019 RACHEL PALMA MD, Ot Z77.2 2 CNTCT W AND EXPSR TO ENVIRON TOBACCO SMO 07/03/2019 RACHEL PALMA MD, Ot Z85.4 3 PERSONAL HISTORY OF MALIGNANT NEOPLASM O 07/03/2019 RACHEL PALMA MD, Ot Z88.5 ALLERGY STATUS TO NARCOTIC AGENT STATUS 09/28/2019 EDGARD LAZO Ot K59.09 OTHER CONSTIPATION Procedures Code Description Performed By Per pb On 68.4 TOTAL ABD HYSTERECTOMY 09/12/2005 57582 PSYC H DIAG EVAL W/MED SRVCS 07/18/2012 18271 ROUT INE VENIPUNCTURE 05/12/2014 99714 UA W / CULTURE IF INDICATED 05/12/2014 68415 CBC 05/12/2014 [id number] GF R CALC (RESULT ONLY) 05/12/2014 02530 CMP 05/12/2014 96478 LIPI D PANEL 05/12/2014 98915 REGIS MIN D 25-HYDROXY (D2,D3, TOTAL) 05/12/2014 94708 TSH 05/12/2014 Results Test Result Range Complete [...] 15.8 ng/mL 10.0-92.0 CBC With Differential/Platelet - 7 10:33 WBC 10.3 x10E3/uL 3.4-10.8 RBC 4.52 x10E6/uL 3.77-5.28 Hemoglobin 13.7 g/dL 11.1-15.9 Hematocrit 41.3 % 34.0-46.6 MCV 91 fL 79-97 MCH 30.3 pg 26.6-33.0 MCHC 33.2 g/dL 31.5-35.7 RDW 13.0 % 12.3-15.4 Platelets 367 x10E3/uL 150-379 Neutrophils 56 % Lymphs 32 % Monocytes 9 % Eos 3 % Basos 0 % Neutrophils (Absolute) 5.7 x10E3/uL 1.4- 7.0 Lymphs (Absolute) 3.3 x10E3/uL 0.7-3.1 Monocytes(Absolute) 0.9 x10E3/uL 0.1-0.9 Eos (Absolute) 0.3 x10E3/uL 0.0-0.4 Baso (Absolute) 0.0 x10E3/uL 0.0-0.2 Immature Granulocytes 0 % Immature Grans (Abs) 0.0 x10E3/uL 0.0-0. 1 Comp. Metabolic Panel (14) - 09/03/16 10 :33 Glucose, Serum 87 mg/dL 65-99 BUN 8 mg/dL 6-20 Creatinine, Serum 0.61 mg/dL 0.57-1.00 eGFR If NonAfricn Am 117 mL/min/1.73 >59 eGFR If Africn Am 135 mL/min/1.73 >5 9 BUN/Creatinine Ratio 13 9-23 Sodium, Serum 140 [...] - 09/03/16 10:33 TSH 2.110 uIU/mL 0.450-4.500 Complete blood count (CBC) with automate d [...] Status Pt. Type Provider Facility Loc./Unit Complaint [id number] 09/04/2016 09:13:00 Document Registration [id number] 06/29/2019 22:37:00 00:29:00 DIS Emergency RACHEL PALMA MD [facility] ER FS CHEST PAIN/SOB [id number] 06/20/2019 19:12:00 020 20:27:00 DIS Emergency NEDRA COLINP [facility] ER L ANKLE PAIN [id number] 03/15/2019 15:50:00 17:10:00 DIS Emergency MÓNICA PINA, SUKI Tobin [facility] ER HX BRAIN SURGERY/PAIN I N BACK OF HEAD [id number] 07/15/2018 09:36:00 11:45:00 DIS Outpatient PINEDA RAKEL LAND [facility] ENDO DYSPHAGIA/CHANGE IN BOW EL HABIT [id number] 07/09/2018 05:39:00 13:41:00 DIS Outpatient RAKEL PINEDA DO [facility] PREOP COLONOSCOPY/EGD [id number] 07/03/2018 07:14:00 23:59:59 CLS Outpatient EDGARD LAZO [facility] RAD CHRONIC CONSTIPATION [id number] 12/30/2017 16:03:00 018 17:25:00 DIS Emergency MÓNICA PINA, SUKI Tobin [facility] ER LETHARGIC, CHEST TIGHTN ESS, BP HIGH [id number] 12/30/2016 15:24:00 017 16:53:00 DIS Emergency ZAC VICENTE APRN [facility] ER R WRIST INJ [id number] 06/11/2016 05:26:00 017 06:02:00 DIS Emergency ADELE THRASHER MD [facility] ER SORE THROAT, CO UGH, WIZZY [id number] 12/03/2015 14:47:00 016 16:41:00 DIS Emergency ZAC VICENTE APRN [facility] ER CHEST PAIN, L ARM NUMBN ESS [id number] 10/04/2015 08:41:00 016 13:35:00 DIS Outpatient AMNA PINA, RONALD Spicer [facility] GALLSTONES [id number] 10/03/2015 15:51:00 016 19:56:00 DIS Emergency ZAC VICENTE APRN [facility] ER NAUSEA/VOMITING/R SIDE RIB PAIN [id number] 01/01/2015 20:54:00 015 23:23:00 DIS Emergency ADELE THRASHER MD [facility] ER ABD PAIN [id number] 12/23/2014 19:49:00 015 11:30:00 DIS Outpatient QUE PINA, ARPIT Santoro [facility] BOWEL OBSTRUCTION [id number] 08/01/2014 17:52:00 015 18:36:00 DIS Emergency ZAC VICENTE APRN [facility] ER FACIAL PAIN [id number] 05/05/2014 22:50:00 015 00:23:00 DIS Emergency YURIDIA DO, MARLON K [facility] ER HIGH BP [id number] 04/24/2014 06:46:00 014 07:48:00 DIS Emergency ADELE THRASHER MD [facility] ER RT WRIST PAIN [id number] 09/29/2012 06:44:00 013 07:35:00 DIS Emergency ADELE THRASHER MD [facility] ER COUGH, FEVER [id number] 12/11/2017 03:24:00 Document Registration [id number] 10/31/2011 00:46:00 Document Registration [id number] 10/18/2011 00:52:00 Document Registration [id number] 07/25/2011 14:50:00 Document Registration [id number] 10/02/2010 20:54:00 Document Registration [id number] 09/05/2010 16:27:00 Document Registration [id number] 08/02/2010 19:35:00 Document Registration [id number] 11/25/2009 16:05:00 Document Registration [id number] 08/23/2009 15:21:00 Document Registration [id number] 09/12/2005 06:00:00 Document Registration [id number] 09/07/2005 07:44:00 Document Registration [id number] 01/01/2019 10:00:00 01/01/2019 23:59:5 9 CLS Outpatient SHALONDA ELIZALDE [id number] 01/16/2018 08:35:00 Document Registration [id number] 06/15/2014 08:55:00 06/15/2014 23:59: 59 CLS Outpatient KHRIS SCHUMACHER DO [id number] 05/18/2014 08:20:00 05/18/2014 23:59: 59 CLS Outpatient MADL CHANNELER OUTSOLE, TIARRA L [id number] 05/12/2014 07:57:00 05/12/2014 23:59: 59 CLS Outpatient MADL CHANNELER OUTSOLE, TIARRA L [id number] 05/11/2014 09:03:00 05/11/2014 23:59: 59 CLS Outpatient MADL CHANNELER OUTSOLE, TIARRA L [id number] 10/08/2012 10:31:00 10/08/2012 23:59: 59 CLS Outpatient KHRIS SCHUMACHER DO [id number] 07/17/2012 15:48:00 07/17/2012 23:59: 59 CLS Outpatient [id number] 07/17/2012 15:48:00 Document Registration
--- NOTE | 2019-10-19 21:55 | ED Headache ---
General Chief Complaint: Head/Cervical Problems Stated Complaint: PAIN IN BACK OF HEAD/PRESSURE Nursing Triage Note: Patient states that she has been having pain at the base of her head on the left side. Patient states it has been consistant since 10am today. Patient also states that she had brain surgery 11 months ago. Nursing Sepsis Screen: No Definite Risk History of Present Illness Date Seen by Provider: Oct 19, 2019 Time Seen by Provider: 21:38 Initial Comments The patient is a pleasant 39-year-old female presents for evaluation of a left sided headache which started gradually this morning. The location is behind the left ear and she mentions that she had a surgery for a meningioma 11 months ago. She denies vision changes, weakness or numbness, neck stiffness, fevers or chills, confusion, difficulty speaking or walking, recent head injury. She is alert and oriented 4, calm, and appears to be in no distress this time. Timing/Duration: other (about 12 hours) Severity/Quality: moderate Location: parietal (left) Prior Headaches/Recent Trauma: no recent headache/trauma Modifying Factors: improves with rest (helps) Associated Symptoms: denies symptoms Allergies and Home Medications Allergies Coded Allergies: morphine (Verified Allergy, Unknown, 10/04/15) Home Medications Hydrocodone Bit/Acetaminophen 1 Each Tablet, 1 TAB PO Q6H PRN for PAIN-SEVERE (8-10) Prescribed by: RACHEL PALMA on [birth year]30/1923 Lisinopril 10 Mg Tablet, 10 MG PO DAILY, (Reported) Metoprolol Succinate 100 Mg Tab.er.24h, 100 MG PO DAILY, (Reported) Multivit with Calcium,Iron,Min 1 Each Tablet, 1 EACH PO DAILY, (Reported) Ofloxacin 5 Ml Drops, 10 DROPS OP DAILY Prescribed by: SUKI SALES on 03/15/19 1701 Ondansetron 4 Mg Tab.rapdis, 4 MG PO Q6H PRN for NAUSEA/VOMITING Prescribed by: RACHEL PALMA on 06/30/1922 Sucralfate 1 Gm/10 Ml Oral.susp, 1 GM PO TIDAC Prescribed by: RACHEL PALMA on 06/30/1922 Patient Home Medication List Home Medication List Reviewed: Yes Review of Systems Review of Systems Constitutional: no symptoms reported Eyes: No Symptoms Reported Ears, Nose, Mouth, Throat: no symptoms reported Respiratory: no symptoms reported Cardiovascular: no symptoms reported Gastrointestinal: no symptoms reported Genitourinary: no symptoms reported Musculoskeletal: no symptoms reported Skin: no symptoms reported Psychiatric/Neurological: Headache All Other Systems Reviewed Negative Unless Noted: Yes Past Kocqhzf-Fcwxqd-Qweddl Hx Past Med/Social Hx: Reviewed Nursing Past Med/Soc Hx Patient Social History Alcohol Use: Denies Use Recreational Drug Use: No Smoking Status: Never a Smoker Type Used: Cigarettes 2nd Hand Smoke Exposure: Yes Recent Foreign Travel: No Contact w/Someone Who Travel: No Recent Infectious Disease Expo: No Recent Hopitalizations: No Physical Abuse: No Sexual Abuse: No Mistreated: No Fear: No Immunizations Up To Date Tetanus Booster (TDap): Less than 5yrs PED Vaccines UTD: Yes Date of Influenza Vaccine: Jan 27, 2018 Seasonal Allergies Seasonal Allergies: No Past Medical History Surgeries: Yes (D&C X2; HYST/OVARIES INTACT, Brain Tumor Removal) Appendectomy, Section, Gallbladder, Hysterectomy, Neurological Respiratory: No Currently Using CPAP: No Currently Using BIPAP: No Cardiac: Yes Hypertension Neurological: Yes Brain Tumor 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 Disorders: No Female 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 Disorders: 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 Sexually Transmitted Disease: No HIV/AIDS: No Genitourinary: No Gastrointestinal: Yes (dysphagia) Gastroesophageal Reflux, Hiatal Hernia, Gall Bladder Disease Musculoskeletal: Yes Chronic Back Pain Endocrine: No HEENT: No Loss of Vision: Denies Hearing Impairment: Denies Cancer: No Psychosocial: No Integumentary: No Blood Disorders: No Adverse Reaction/Blood Tranf: No Family Medical History Diabetes mellitus FHx: ovarian cancer No Pertinent Family Hx Physical Exam Vital Signs Vital Signs - First Documented 10/19/19 21:35 Temp 36.9 Pulse 96 Resp 18 B/P (MAP) 136/99 (111) Pulse Ox 98 O2 Delivery Room Air Capillary Refill : Less Than 3 Seconds Height, Weight, BMI Height: 5'5.00" Weight: 149lbs. 0.0oz. 67.872626ip; 22.00 BMI Method:Stated General Appearance: WD/WN, no apparent distress HEENT: PERRL/EOMI, pharynx normal Neck: non-tender, full range of motion, supple Cardiovascular: regular rate, rhythm, no edema, no JVD Respiratory: lungs clear, normal breath sounds, no respiratory distress, no acc essory muscle use Gastrointestinal: normal bowel sounds, non tender, soft Extremities: normal range of motion, non-tender, normal inspection, no pedal edema Psychiatric: alert, oriented x 3 Crainal Nerves: normal hearing, normal speech, PERRL Coordination/Gait: normal gait Motor/Sensory: no motor deficit, no sensory deficit Skin: normal color, warm/dry Progress/Results/Core Measures Results/Orders My Orders Orders - LUCI CANALES DO Ct Head Wo (10/19/19 21:40) Ketorolac Injection (Toradol Injection) (10/19/19 22:00) Ns Iv 1000 Ml (Sodium Chloride 0.9%) (10/19/19 22:00) Diphenhydramine Injection (Benadryl Inje (10/19/19 22:00) Metoclopramide Injection (Reglan Injecti (10/19/19 22:00) Dexamethasone Injection (Decadron Inject (10/19/19 22:00) Medications Given in ED Current Medications Medications Dose Ordered Sig/Lance Route Start Time Stop Time Status Last Admin Dose Admin Dexamethasone Sodium Phosphate 10 mg ONCE ONCE IV 10/19/19 22:00 10/19/19 22:01 DC 10/19/19 22:01 10 MG Diphenhydramine HCl 25 mg ONCE ONCE IVP 10/19/19 22:00 10/19/19 22:01 DC 10/19/19 22:01 25 MG Ketorolac Tromethamine 30 mg ONCE ONCE IVP 10/19/19 22:00 10/19/19 22:01 DC 10/19/19 22:01 30 MG Metoclopramide HCl 10 mg ONCE ONCE IVP 10/19/19 22:00 10/19/19 22:01 DC 10/19/19 22:02 10 MG Vital Signs/I&O 10/19/19 21:35 Temp 36.9 Pulse 96 Resp 18 B/P (MAP) 136/99 (111) Pulse Ox 98 O2 Delivery Room Air Blood Pressure Mean: 111 Progress Progress Note : Progress Note @2247 - CT head is unremarkable. The patient states she is feeling much better at this time and has no new complaints. She is asking to be discharged home. Advise close follow-up with PCP in the next 2-3 days and return to the emergency Department immediately for new or worsening symptoms. The patient expresses verbal understanding and agreement with the plan and is stable for discharge. Departure Impression Primary Impression: Headache Disposition: 01 HOME, SELF-CARE Condition: Stable Departure-Patient Inst. Decision time for Depature: 22:50 Referrals: [facility] (PCP/Family) Primary Care Physician Patient Instructions: Headache, Adult (DC) Add. Discharge Instructions: Drink plenty of fluids at home. Take Tylenol or ibuprofen for pain relief is needed. Follow-up with your doctor in the next 2-3 days. Return to the emergency Department immediately for new or worsening symptoms. LUCI CANALES DO Oct 19, 2019 21:55
[2019-10-19] MEDS ORDERED: diphenhydrAMINE 50 MG/ML INJ (BENADRYL) IVP ONE (22:00)
[2019-10-19] MEDS ORDERED: DEXAMETHASONE 10 MG/ML (DECADRON) 1 ML VIAL IV ONE (22:00)
[2019-10-19] MEDS ORDERED: METOCLOPRAMIDE INJ 10 MG/2 ML (REGLAN) IVP ONE (22:00)
[2019-10-19] MEDS ORDERED: KETOROLAC 30 MG/ML VIAL IVP ONE (22:00)
[2019-10-19] MEDS ORDERED: NS IV 1000 ML 1,000 ML IV SCH (22:00)
[2019-10-19 22:55] VITALS: BP 128/96
--- NOTE | 2019-10-20 06:43 | Diagnostic Imaging Report ---
Clinical indication: Patient with pain at the base of her head on left side. Patient had brain surgery 11 months ago. Exam: Axial CT scan of the brain without IV contrast with coronal and sagittal reformatted images. Auto Exposure Controls were utilized during the CT exam to meet ALARA standards for radiation dose reduction. Comparison: None. Findings: There is skull streak artifact which obscures portions of the brainstem, posterior fossa, and portions of the brain and skull base. There are postoperative changes with craniectomy of the left occipital bone region with prosthetic metallic flap in place. There is low-density encephalomalacia involving the upper aspect of left cerebellum related to encephalomalacia. 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 Empty sella turcica is noted. Otherwise, there is no evidence of acute cerebral infarct, intracranial hemorrhage, or gross mass effect. The brain parenchymal volume appears appropriate for patient's age. There is normal le-white matter distinction. There is no significant midline shift or herniation. There is no evidence of hydrocephalus. The basal cisterns are unremarkable. The skull, extracranial soft tissue, and orbits are unremarkable. The paranasal sinuses are unremarkable. Temporal bones show no significant abnormality. Impression: 1: There is no CT evidence of acute intracranial process. 2: Postop changes to the left posterior fossa region with encephalomalacia in the upper aspect of left cerebellum. 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 4: Empty sella turcica. Comparison to prior brain imaging would help evaluate for chronicity. I agree with stat rad report Dictated by: Dictated on workstation # [id number]
== END 2019-10-19 22:55 | disposition home or self-care (01) ==
LOC: EDUNIT# 21:30 → ER FS 21:32
DX: R51 Headache (principal); I10 Essential (primary) hypertension; K21.9 Gastro-esophageal reflux disease without esophagitis; Z86.011 Personal history of benign neoplasm of the brain; Z88.5 Allergy status to narcotic agent; Z77.22 Contact with and (suspected) exposure to environmental tobacco smoke (acute) (chronic); Z79.891 Long term (current) use of opiate analgesic; Z80.41 Family history of malignant neoplasm of ovary
CPT/HCPCS: 70450; 96361; 96374; 96375

== ENCOUNTER 2019-11-29 02:28 | Emergency (ER) | payer OTHER ==
[~2019-11-29] VITALS: Ht 165.1 cm; Wt 62.4 kg
--- OUTSIDE RECORDS SUMMARY | 2019-11-29 02:35 | XMS REPORT | Clinical Summary ---
Author Author [facility] Organization [facility] Address Unknown Phone Unavailable Care Team Providers Care Systems Analyst Engineer Name Role Phone Sherita Mishra MELE PCP Unavailable Source Comments Some departments are not documenting in the electronic medical record. If you d o not see the information that you expected, contact Release of Information in [facility] Management department at [phone] for further assistan ce in locating additional records.[facility] Allergies Comments Active Allergy Reactions Severity Noted [...] Comments Vital Sign 122/90 04/17/2019 1:33 PM [facility] [employer] Blood Pressure 81 04/17/2019 1:33 PM [employer] Pulse 36.9 C (98.5 F) 04/17/2019 1:33 PM [employer] Temperature - - Respiratory Rate 100% 12/05/2018 9:35 AM CDT Oxygen Saturation - - Inhaled Oxygen Concentration 68 kg (150 lb) 04/15/2019 8:46 AM [facility] Weight 165.1 cm (5' 5") 04/15/2019 8:46 AM [employer] Height 24.96 04/15/2019 8:46 AM [employer] Body Mass Index Plan of Treatment Health Maintenance Due Date Last Done Comments HIV SCREENING 08/01/1995 DTAP/TDAP VACCINES (1 - 1998 Tdap) HEPATITIS C SCREENING 1998 PHYSICAL (COMPREHENSIVE) 1998 EXAM CERVICAL CANCER SCREENING 2001 INFLUENZA VACCINE 01/28/2020 Implants Device Identifier Shelf Expiration Date Model / Serial / L ot Implanted Type Area Manufactur er 06/27/2023 [id number] / [id number] / [id number] Patch Dural 2x2in Lyoplant Cranial Brain AE SCULAP Bovine Pericardium Onlay - [id number] Implanted: Qty: 1 on 12/03/2018 by Romeo Mcdaniel MD at [facility] [id number] / NA / NA Mesh Cranial .6mm Large Temporal Skull ALFONZO- [place]ASIA Titanium Latex Free - Sna LP Implanted: Qty: 1 on 12/03/2018 by Romeo Mcdaniel MD at [facility] [id number] / NA / NA Plate Bone Level One Medium Curve Skull CAIOS -NYASIA Craniofacial Bur Hole - Sna LP Implanted: Qty: 1 on 12/03/2018 by Romeo Mcdaniel MD at [facility] [id number] / NA / NA Plate Bone Level One Square Skull KLS-BLAYNE N Craniofacial 2x2 Hole Ultra Low - LP Sna Implanted: Qty: 1 on 12/03/2018 by Romeo Mcdaniel MD at [facility] [id number] / NA / NA Screw Bone Level One Titanium Skull KLS-MAR TIN Craniomaxillofacial Drill Free - LP Sna Implanted: Qty: 13 on 12/03/2018 by Romeo Mcdaniel MD at [facility] Results Not on filefrom Last 3 Months Insurance Type Payer Benefit Subscriber ID Effective Phone Address Plan / Dates Group HMO CIGNA CIGNA NON xxxxxxxxxxx 2017- PPO/EPO Present Advance Directives 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 necessary based on Dx
--- OUTSIDE RECORDS SUMMARY | 2019-11-29 02:36 | XMS REPORT ---
Author Author Judith Brunson Doctor Organization [facility] Address Unknown Phone Unavailable Care Team Providers Care Seam Rubbing Machine Operator Name Role Phone Migration, Doctor Unavailable Unavailable PROBLEMS Type Condition ICD9-CM Code [id number] Code Onset Dates Condition S tatus SNOMED Code Problem Major depressive disorder, recurrent episode, severe F33.2 Active 669081211296 Problem Constipation, unspecified constipation type K59.00 Active 77404603 Problem Insomnia, unspecified type G47.00 Act julián 207096751 Problem 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 Activ e [id number] Problem Anxiety F41.9 Active 50782368 Problem Gastroesophageal reflux disease with esophagitis K 21.0 Active 958786308 Problem Hypertension, essential I10 Active 53596240 Problem Generalized anxiety disorder F41.1 A ctive 28667899 Problem Other chronic pain G89.29 Active 8 6714021 ALLERGIES No Information ENCOUNTERS Encounter Location Date Diagnosis [place] [address] [address] Mar, Cough R05 ; Fluid level behind tympanic membrane of both ears H65.93 and Viral upper respiratory tract infection J06.[address] 5282 [address] Dec, Wheezing R06.2 ; Impetigo L01.00 and Bronchitis J40 [facility] [address] [place] [id number] [place], [place] [id number] Dec, Bronchitis J40 [facility] [address] 12[address] Dec, Bronchiolitis J21.9 and Acute effusion of both middle ears H65.193 [facility] [address] 92[address] Nov, [facility] [address] [place] [id number] Nov, Follow-up exam Z09 and Hypertension, essential I10 [facility] [address] [id number] [address] Nov, [facility] [place] [address] [place] [id number] [address] Nov, [facility] [place] [address] [place] [address] Nov, Hypertension, essential I10 and 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 [facility] [address] [address] [id number] [place] [address] Oct, [facility] [place] [address] [address] [id number] [place] [address] Oct, 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 ; Anxiety F41.9 and Other complicated headache syndrome G44.59 [facility] [address] [place] [id number] [place] [address] Oct, [facility] [address] [place] [address] Oct, Facial numbness R20.0 and Trigeminal 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.0 [facility] [address] [place] [address] Oct, Trigeminal 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.0 [facility] [address] [place] [address] Oct, Generalized anxiety disorder F41.1 ; Hypertension, essential I10 ; Constipation, unspecified constipation type K59.00 ; Gastroesophageal reflux disease with esophagitis K21.0 ; Abscessed tooth K04.7 ; Other chronic pain G89.29 and Low back pain M54.5 [facility] [address] [place] [id number] [place] [address] Jul, Acute bronchitis, unspecifie d organism J20.[address] [facility] [place] [address] [id number] [address] Jul, Anxiety F41.9 and Major depr essive disorder, recurrent episode, severe F33.[address] [id number] [address] Jul, [address] 340 [id number] [address] Jul, [address] [id number] [address] Jun, Generalized anxiety disorder F41.1 ; Gastroesophageal reflux disease with esophagitis K21.0 and Chronic constipation K59.[address] [id number] [address] Jun, Primary hypertension I10 ; G eneralized anxiety disorder F41.1 and Gastroesophageal reflux disease, esophagitis presence not specified K21.[address] 340 [id number] [address] May, [address] 340 977[place] [address] May, Elevated blood pressure read ing R03.[address] [id number] [address] May, Primary hypertension I10 ; A nxiety F41.9 ; Gastroesophageal reflux disease, esophagitis presence not specified K21.9 ; Chronic constipation K59.09 ; Low back pain M54.5 ; Other chronic pain G89.29 an d Generalized abdominal pain R10.[address] [facility] [place] [address] [id number] [address] Apr, [facility] [address] [place] [id number] [place] [address] Apr, [facility] [address] [facility] [id number] [address] [place] [address] Apr, [facility] [address] [facility] [id number] [address] [place] [address] Apr, Tachycardia R00.0 ; Facial n umbness R20.0 ; Generalized anxiety disorder F41.1 and Elevated blood pressure reading R03.0 [facility] [address] [place] [id number] [place] [address] 17 Mar, 2018 [facility] [address] [facility] [id number] [place] [address] Mar, Generalized anxiety disorder F41.1 and Panic disorder [episodic paroxysmal anxiety] without agoraphobia F41.0 [facility] [address] [place] [id number] [place] [address] 05 Mar, 2018 [facility] [address] [facility] [id number] [address] [place] [address] Mar, Lower back pain M54.5 [facility] [address] [place] [id number] [place] [address] Jan, [facility] [address] [place] [id number] [place] [address] Jan, [facility] [address] [address] Jan, Acute non-recurrent maxillar y sinusitis J01.00 and Gastroesophageal reflux disease with esophagitis K21.0 [place] [address] [address] Dec, [facility] [address] [address] Dec, [facility] [address] [address] Dec, Hypertension, essential I10 ; Anxiety F41.9 and Family history of hypothyroidism Z83.[address] [facility] [address] [place] [id number] [place] [address] 18 Dec, 2017 Allergic rhinitis, unspecifi ed seasonality, unspecified trigger J30.9 and Bronchiolitis J21.9 [facility] [address] [place] [id number] [place] [address] 13 Dec, 2017 Hypertension, essential I10 ; Anxiety F41.9 and Family history of hypothyroidism Z83.49 [place] [address] [address] August, Bronchitis J40 [place] [address] [address] Apr, Wheezing R06.2 ; Body aches R52 and Acute bronchitis, unspecified organism J20.9 [place] [address] [address] Mar, Other viral agents as the ca use of diseases classified elsewhere B97.89 and Acute upper respiratory infection, unspecified J06.9 [place] [address] [address] August, [place] [address] [address] August, [place] [address] [address] August, Major depressive disorder, r ecurrent episode, severe F33.2 ; Panic disorder F41.0 ; Insomnia, unspecified type G47.00 ; Gastroesophageal reflux disease with esophagitis K21.0 ; Low back pain M54.5 ; Constipation, unspecified constipation type K59.00 and Fatigue, unspecified type R53.83 [place] [address] [address] Jul, Sore throat J02.9 and Exposu re to Streptococcal pharyngitis Z20.818 [place] [address] [place] [id number] [place] [address] Feb, [address] [address] Nov, Major depressive disorder, r ecurrent episode, severe F33.2 ; Insomnia, unspecified type G47.00 ; Gastroesophageal reflux disease with esophagitis K21.0 ; Low back pain M54.5 ; Constipation, unspecified constipation type K59.00 and Vaginal discharge N89.8 [facility] [address] [id number] [address] [place] [address] Oct, Gastroesophageal reflux dise ase without esophagitis K21.9 [facility] [address] [id number] [address] [place] [address] Oct, [facility] [address] [id number] [address] [place] [address] Sep, Major depressive disorder, r ecurrent episode, severe F33.2 ; Panic disorder F41.0 ; Low back pain M54.5 and Vaginal odor N89.8 [place] [address] [id number] [address] [place] [address] Sep, [place] [address] [id number] [address] [place] [address] August, Frequent urination R35.0 ; E ncounter to establish care Z76.89 ; Abscess L02.91 ; Insomnia, unspecified type G47.00 ; Anxiety F41.9 ; Low back pain M54.5 ; Other chronic pain G89.29 and Constipation, unspecified constipation type K59.00 [place] [address] [id number] [address] [place] [address] Apr, Major depressive disorder, r ecurrent episode, severe F33.2 and Panic disorder F41.0 [facility] [address] [id number] [address] [place] [address] Apr, [facility] [address] [id number] [address] [place] [address] Apr, Major depressive disorder, r ecurrent episode, severe F33.2 and Panic disorder F41.0 [place] [address] [id number] [address] [place] [address] Jul, [facility] [address] [id number] [address] [place] [address] Jul, [facility] [address] [id number] [address] [place] [address], [place] [address] 17 May, 2014 [facility] [address] [id number] [address] [place] [address], [place] [address] 17 May, 2014 [facility] [address] [id number] [address] [place] [address], [place] [address] 17 May, 2014 [facility] [address] [id number] [address] [place] [address], [place] [address] 17 May, 2014 [facility] [address] [id number] [address] [place] [address], [place] [address] 20 Apr, 2014 [facility] [address] [id number] [address] [place] [address], [place] [address] Apr, [facility] [address] [id number] [address] [place] [address], [place] [address] 16 Apr, 2014 [facility] [address] [id number] [address] [place] [address], [place] [address] 16 Apr, 2014 [facility] [address] [id number] [address] [place] [address], [place] [address] 16 Apr, 2014 [facility] [address] [id number] [address] [place] [address], [place] [address] 16 Apr, 2014 [facility] [address] [id number] [address] [place] [address], [place] [address] 14 Apr, 2014 [facility] [address] [id number] [address] [place] [address], [place] [address] 14 Apr, 2014 [facility] [address] [id number] [address] [place] [address], [place] [address] Apr, [facility] [address] [id number] [address] [place] [address], [place] [address] Apr, [facility] [address] [id number] [address] [place] [address], [place] [address] 16 Jan, 2014 [facility] [address] [id number] [address] [place] [address], [place] [address] Jan, [facility] [address] [id number] [address] [place] [address] Nov, [facility] [address] [id number] [address] [place] [address] Nov, [facility] [address] [id number] [address] [place] [address] Oct, [facility] [address] [id number] [address] [place] [address] Oct, [facility] [address] [facility] [id number] [address] [place] [address] Dec, [facility] [address] [facility] [id number] [address] [place] [address] Sep, [facility] [address] [facility] [id number] [address] [place] [address] Jul, [facility] [address] [facility] [id number] [address] [place] [address] Jun, IMMUNIZATIONS No Known Immunizations SOCIAL HISTORY [...]
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
[2019-11-29 03:21] LABS: BILIRUBIN,URINE NEGATIVE (NEGATIVE); CLARITY,URINE CLOUDY; COLOR,URINE AMBER; GLUCOSE, URINE (UA) NEGATIVE (NEGATIVE); KETONES,URINE NEGATIVE (NEGATIVE); LEUKOCYTE ESTERASE ,URINE NEGATIVE (NEGATIVE); NITRITE,URINE NEGATIVE (NEGATIVE); PROTEIN,URINE NEGATIVE (NEGATIVE)
[2019-11-29 03:30] LABS: BACTERIA,URINE NEGATIVE /HPF
[2019-11-29] MEDS ORDERED: HYOSCYAMINE 0.125 MG (LEVSIN) TAB SL ONE (04:00)
--- NOTE | 2019-11-29 04:36 | ED GU-Female ---
General Chief Complaint: - Urinary Stated Complaint: LOWER ABD & BACK PAIN,HURTS TO URINATE Nursing Triage Note: TO ED VIA POV AND AMBULATORY TO ROOM 6 WITH C/O LOWER BACK PAIN AND LOWER ABD PAIN. STATES SHE TOOK ANTIBX FOR UTI LAST WEEK AND HAD STARTED TO FEEL BETTER BUT PAIN STARTED AGAIN LAST NIGHT. Nursing Sepsis Screen: No Definite Risk Source: patient Exam Limitations: no limitations History of Present Illness Date Seen by Provider: Nov 29, 2019 Time Seen by Provider: 02:36 Initial Comments This 39-year-old woman presents to the emergency room with complaints of lower back pain and pelvic pain. She was treated for urinary tract infection about a week ago and felt better after taking antibiotics. Antibiotics are complete but her symptoms have returned. She has a cramping sensation in the pelvic area with urinating but denies dysuria. She has had no fever. She denies any vaginal symptoms. Review of chart notes she does have a history of endometriosis. She has had partial hysterectomy, appendectomy, and cholecystectomy. She denies nausea, vomiting, constipation, or diarrhea. She does not feel like she voids completely when urinating. Allergies and Home Medications Allergies Coded Allergies: morphine (Verified Allergy, Unknown, 10/04/15) Home Medications Hydrocodone Bit/Acetaminophen 1 Each Tablet, 1 TAB PO Q6H PRN for PAIN-SEVERE (8-10) Prescribed by: RACHEL PALMA on 06/30/1923 Lisinopril 10 Mg Tablet, 10 MG PO DAILY, (Reported) Metoprolol Succinate 100 Mg Tab.er.24h, 100 MG PO DAILY, (Reported) Metronidazole 500 Mg Tablet, 500 MG PO BID Prescribed by: JONATHAN HERNANDEZ on 11/29/19 0444 Multivit with Calcium,Iron,Min 1 Each Tablet, 1 EACH PO DAILY, (Reported) Ofloxacin 5 Ml Drops, 10 DROPS OP DAILY Prescribed by: SUKI SALES on 03/15/19 1701 Ondansetron 4 Mg Tab.rapdis, 4 MG PO Q6H PRN for NAUSEA/VOMITING Prescribed by: RACHEL PALMA on 06/30/1922 Sucralfate 1 Gm/10 Ml Oral.susp, 1 GM PO TIDAC Prescribed by: RACHEL PALMA on 06/30/1922 Patient Home Medication List Home Medication List Reviewed: Yes Review of Systems Review of Systems Constitutional: no symptoms reported EENTM: no symptoms reported Respiratory: no symptoms reported Cardiovascular: no symptoms reported Gastrointestinal: see HPI Genitourinary: see HPI : No Musculoskeletal: no symptoms reported Skin: no symptoms reported Psychiatric/Neurological: No Symptoms Reported Endocrine: No Symptoms Reported Past Polhdht-Wvnivv-Fjxogi Hx Past Med/Social Hx: Reviewed Nursing Past Med/Soc Hx Patient Social History Alcohol Use: Denies Use Recreational Drug Use: No Type Used: Cigarettes 2nd Hand Smoke Exposure: Yes Recent Foreign Travel: No Contact w/Someone Who Travel: No Recent Infectious Disease Expo: No Recent Hopitalizations: No Physical Abuse: No Sexual Abuse: No Mistreated: No Fear: No Immunizations Up To Date Tetanus Booster (TDap): Less than 5yrs PED Vaccines UTD: Yes Date of Influenza Vaccine: Jan 27, 2018 Seasonal Allergies Seasonal Allergies: No Past Medical History Surgeries: Yes (D&C X2; HYST/OVARIES INTACT, Brain Tumor Removal) Appendectomy, Section, Gallbladder, Hysterectomy, Neurological Respiratory: No Currently Using CPAP: No Currently Using BIPAP: No Cardiac: Yes Hypertension Neurological: Yes Brain Tumor 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 Disorders: No Female 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 Disorders: Denies, 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 Sexually Transmitted Disease: No HIV/AIDS: No Genitourinary: No Gastrointestinal: Yes (dysphagia) Gastroesophageal Reflux, Hiatal Hernia, Gall Bladder Disease Musculoskeletal: Yes Chronic Back Pain Endocrine: No HEENT: No Loss of Vision: Denies Hearing Impairment: Denies Cancer: No Psychosocial: No Integumentary: No Blood Disorders: No Adverse Reaction/Blood Tranf: No Family Medical History Diabetes mellitus FHx: ovarian cancer No Pertinent Family Hx Physical Exam Vital Signs Vital Signs - First Documented 11/29/19 11/29/19 03:05 04:52 Temp 36.6 Pulse 80 Resp 16 B/P (MAP) 137/91 (106) Pulse Ox 98 O2 Delivery Room Air Capillary Refill : Less Than 3 Seconds Height, Weight, BMI Height: 5'5.00" Weight: 149lbs. 0.0oz. 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, no motor/sensory deficits, alert, normal mood/affect, oriented x 3 Skin: normal color, warm/dry Progress/Results/Core Measures Suspected Sepsis Recent Fever Within 48 Hours: No Infection Criteria Present: Suspected New Infection New/Unexplained Altered Menta: No Sepsis Screen: No Definite Risk SIRS Temperature: Pulse: 80 Respiratory Rate: 16 Blood Pressure 137 /91 Mean: 106 Results/Orders Lab Results Laboratory Tests Test 11/29/19 03:08 Range/Units Urine Color PURNIMA H Urine Clarity CLOUDY Urine pH 6.0 5-9 Urine Specific [place] >=1.030 1.016-1.022 Urine Protein NEGATIVE NEGATIVE Urine Glucose (UA) NEGATIVE NEGATIVE Urine Ketones NEGATIVE NEGATIVE Urine Nitrite NEGATIVE NEGATIVE Urine Bilirubin NEGATIVE NEGATIVE Urine Urobilinogen 0.2 < = 1.0 MG/DL Urine Leukocyte Esterase NEGATIVE NEGATIVE Urine RBC (Auto) NEGATIVE NEGATIVE Urine RBC NONE /HPF Urine WBC NONE /HPF Urine Squamous Epithelial Cells 5-10 /HPF Urine Crystals NONE /LPF Urine Bacteria NEGATIVE /HPF Urine Casts NONE /LPF Urine Mucus NEGATIVE /LPF Urine Culture Indicated NO My Orders Orders - JONATHAN HUDSON MD Ua Culture If Indicated (11/29/19 02:36) Hyoscyamine Sl Tablet (Levsin Sl Tablet) (11/29/19 04:00) Metronidazole Tablet (Flagyl Tablet) (11/29/19 04:45) Medications Given in ED Current Medications Medications Dose Ordered Sig/Lance Route Start Time Stop Time Status Last Admin Dose Admin Hyoscyamine Sulfate 0.25 mg ONCE ONCE SL 11/29/19 04:00 11/29/19 04:02 DC 11/29/19 04:07 0.25 MG Metronidazole 500 mg ONCE ONCE PO 11/29/19 04:45 11/29/19 04:46 DC 11/29/19 04:49 500 MG Vital Signs/I&O 11/29/19 11/29/19 03:05 04:52 Temp 36.6 36.6 Pulse 80 62 Resp 16 16 B/P (MAP) 137/91 (106) 134/88 (106) Pulse Ox 98 O2 Delivery Room Air Room Air Capillary Refill : Less Than 3 Seconds Blood Pressure Mean: 106 Progress Note : Progress Note Urinalysis was unremarkable. Bladder scan revealed no significant residual urinary retention. Levsin did not seem to resolve her cramping or pain. Patient does state that her pain feels similar but worse to prior episodes of bacterial vaginosis. Flagyl was started. I offered further workup with blood work and potentially with imaging. Patient declines. She will monitor her symptoms on Flagyl and return to care if symptoms worsen or persist. Further imaging such as ultrasound (when available) would be helpful also. Patient has history of ovarian cysts and states the pain is reminiscent of that as well. Departure Impression Primary Impression: Pelvic pain Disposition: HOME, SELF-CARE Condition: Stable Departure-Patient Inst. Referrals: [facility]KAREN (PCP) Primary Care Physician SHALONDA ELIZALDE (Family) Primary Care Physician Patient Instructions: Acute Pelvic Pain Add. Discharge Instructions: The exact cause of your pain is uncertain but may be related to bladder spasm, bacterial vaginosis, remnant endometriosis, ovarian cyst, etc. To treat pain you may take a combination of ibuprofen up to 600 mg every 6 hours and Tylenol (acetaminophen) up to 1000 mg every 6 hours as needed. Return to care. Worsening symptoms or if you develop new symptoms such as fever. Otherwise follow-up with your primary care provider on Saturday. Ultrasound orde red as an outpatient may be helpful in differentiating the cause of your pain. All discharge instructions reviewed with patient and/or family. Voiced understanding. Scripts Metronidazole (Flagyl) 500 Mg Tablet 500 MG PO BID, #14 TAB Prov: JONATHAN HUDSON MD 11/29/19 Copy Copies To 1: KHRIS SCHUMACHER JOSHUA T MD Nov 29, 2019 04:36
[2019-11-29] MEDS ORDERED: METR500T PO (04:44)
[2019-11-29] MEDS ORDERED: metroNIDAZOLE 500 MG (FLAGYL) TAB PO ONE (04:45)
[2019-11-29 04:52] VITALS: BP 134/88
== END 2019-11-29 04:52 | disposition home or self-care (01) ==
LOC: EDUNIT# 02:28 → ER 02:31
DX: R10.2 Pelvic and perineal pain (principal); K21.9 Gastro-esophageal reflux disease without esophagitis; I10 Essential (primary) hypertension; G89.29 Other chronic pain; M54.9 Dorsalgia, unspecified; Z88.5 Allergy status to narcotic agent; Z79.899 Other long term (current) drug therapy
CPT/HCPCS: 81000; 99283

== ENCOUNTER 2021-04-11 16:40 | Emergency (ER) | payer MEDICAID, OTHER ==
[~2021-04-11] VITALS: Ht 165 cm; Wt 63.6 kg
[~2021-04-11 16:40] MED LIST changes: -LISI10TA2 PO; +LISI10TA25 PO; +METR500T PO
[2021-04-11] MEDS ORDERED: HYDROcodone/APAP 5 MG/325 MG (LORTAB) TAB PO ONE (17:30)
[2021-04-11] MEDS ORDERED: ONDANSETRON 4 MG (ZOFRAN) ORAL DISSOLVE TAB PO ONE (17:30)
[2021-04-11] MEDS ORDERED: ACHD5005 PO (17:48)
[2021-04-11] MEDS ORDERED: CYCL5TAB PO (17:48)
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
[2021-04-11] MEDS ORDERED: ONDA4TAB11 PO (17:49)
[2021-04-11 18:11] VITALS: BP 153/98
== END 2021-04-11 18:10 | disposition home or self-care (01) ==
LOC: EDUNIT# 16:40 → ER 16:41
DX: S70.01XA Contusion of right hip, initial encounter (principal); S40.011A Contusion of right shoulder, initial encounter; I10 Essential (primary) hypertension; K21.9 Gastro-esophageal reflux disease without esophagitis; G89.29 Other chronic pain; M54.9 Dorsalgia, unspecified; Z72.0 Tobacco use; Z79.899 Other long term (current) drug therapy; Z79.891 Long term (current) use of opiate analgesic; V89.2XXA Person injured in unspecified motor-vehicle accident, traffic, initial encounter
CPT/HCPCS: 99283

== ENCOUNTER 2021-09-30 09:38 | Emergency (ER) | payer MEDICAID ==
[~2021-09-30] VITALS: Ht 162 cm; Wt 68.0 kg
[~2021-09-30 09:38] MED LIST changes: +CYCL5TAB PO
--- NOTE | 2021-09-30 09:56 | ED General ---
General Stated Complaint: LOWER BACK/ABD PAIN FATIGUE Source of Information: Patient Exam Limitations: No Limitations History of Present Illness Date Seen by Provider: Sep 30, 2021 Time Seen by Provider: 09:50 Initial Comments Patient is a 41-year-old female who presents to the emergency department today with a chief complaint of feeling "confused and losing time over the course of the last week. She states she really has no memory of the last week and feels like she is in a "fog". She states over the last several days she has had some low back pain as well as lower abdominal pain. No dysuria, urgency or frequency. No diarrhea. No black or bloody stools. She has had a hysterectomy so no abnormal vaginal bleeding. She states her ovaries were left after her hysterectomy 15 years ago. She denies any abnormal headaches or vision changes. No speech difficulties, unilateral weakness numbness or tingling. She states she has had decreased appetite over the course of the last week, eating until she feels nauseous and then stopping. No excessive weight loss. No temperature intolerance. No personal or family history of thyroid issues. She denies recreational drug use or daily alcohol. She is a smoker. She states she was wheezing this morning. Smokes half pack a day. No fevers or chills. She is COVID vaccinated, unaware of any recent exposures to COVID. All other review of systems reviewed and negative except as stated. Timing/Duration: 1 Week Severity: Mild Associated Systoms: Loss of Appetite, Malaise, Nausea/Vomiting Allergies and Home Medications Allergies Coded Allergies: morphine (Verified Allergy, Unknown, 10/04/15) Patient Home Medication List Home Medication List Reviewed: Yes Cyclobenzaprine HCl (Cyclobenzaprine HCl) 5 Mg Tablet, 5 MG PO Q8H PRN for PAIN- BREAKTHROUGH Prescribed by: DAVID OROURKE on 04/11/211747 Hydrocodone Bit/Acetaminophen (Lortab 5 Mg Tablet) 1 Each Tablet, 1 TAB PO Q6H PRN for PAIN-SEVERE (8-10) Prescribed by: RACHEL PALMA on 06/30/19 0024 Hydrocodone/Acetaminophen (Hydrocodone-Acetamin 5-325 mg) 1 Each Tablet, 1 TAB PO Q6H PRN for PAIN-MODERATE (5-7) Prescribed by: DAVID OROURKE on 04/11/211747 Lisinopril (Lisinopril) 10 Mg Tablet, 10 MG PO DAILY, (Reported) Entered as Reported by: DANGELO YUSUF on 07/09/18 1337 Metoprolol Succinate (Metoprolol Succinate) 100 Mg Tab.er.24h, 100 MG PO DAILY, (Reported) Entered as Reported by: DANGELO YUSUF on 07/09/18 1337 Metronidazole (Flagyl) 500 Mg Tablet, 500 MG PO BID Prescribed by: JONATHAN HERNANDEZ on 11/29/19 0444 Multivit with Calcium,Iron,Min (Women's Daily Formula) 1 Each Tablet, 1 EACH PO DAILY, (Reported) Entered as Reported by: DANGELO YUSUF on 07/09/18 1337 Ofloxacin (Ofloxacin) 5 Ml Drops, 10 DROPS OP DAILY Prescribed by: SUKI SALES on 03/15/19 1701 Ondansetron (Ondansetron Odt) 4 Mg Tab.rapdis, 4 MG PO Q6H PRN for NAUSEA/VOMITING Prescribed by: RACHEL PALMA on 06/30/19 0023 Ondansetron (Ondansetron Odt) 4 Mg Tab.rapdis, 4 MG PO Q6H PRN for NAUSEA-1ST LINE Prescribed by: DAVID OROURKE on 04/11/21 1749 Sucralfate (Carafate) 1 Gm/10 Ml Oral.susp, 1 GM PO TIDAC Prescribed by: RACHEL PALMA on 06/30/19 0023 Review of Systems Review of Systems Constitutional: see HPI EENTM: no symptoms reported Respiratory: no symptoms reported Cardiovascular: no symptoms reported Gastrointestinal: nausea Genitourinary: no symptoms reported Musculoskeletal: back pain Skin: no symptoms reported Psychiatric/Neurological: Other ("brain fog") Past Eytpfsi-Wdwnsy-Vifblj Hx Immunizations Up To Date Tetanus Booster (TDap): Less than 5yrs PED Vaccines UTD: Yes Seasonal Allergies Seasonal Allergies: No Past Medical History Surgeries: Yes (D&C X2; HYST/OVARIES INTACT, Brain Tumor Removal) Appendectomy, Section, Gallbladder, Hysterectomy, Neurological Respiratory: No Currently Using CPAP: No Currently Using BIPAP: No Cardiac: Yes Hypertension Neurological: Yes Brain Tumor 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 Disorders: No Female 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 Disorders: Denies, Endometriosis [employer]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 Sexually Transmitted Disease: No HIV/AIDS: No Genitourinary: No Gastrointestinal: Yes (dysphagia) Gastroesophageal Reflux, Hiatal Hernia, Gall Bladder Disease Musculoskeletal: Yes Chronic Back Pain Endocrine: No HEENT: No Loss of Vision: Denies Hearing Impairment: Denies Cancer: No Psychosocial: No Integumentary: No Blood Disorders: No Adverse Reaction/Blood Tranf: No Family Medical History Diabetes mellitus FHx: ovarian cancer No Pertinent Family Hx Physical Exam Vital Signs Vital Signs - First Documented 09/30/21 09:44 Temp 36.0 Pulse 106 Resp 20 B/P (MAP) 126/75 (92) Pulse Ox 98 O2 Delivery Room Air Capillary Refill : Height, Weight, BMI Height: 5'5.00" Weight: 149lbs. 0.0oz. [id number]; 23.00 BMI Method:Stated General Appearance: No Apparent Distress, WD/WN Eyes: Bilateral Eye Normal Inspection, Bilateral Eye PERRL, Bilateral Eye EOMI HEENT: PERRL/EOMI, TMs Normal, Normal ENT Inspection, Pharynx Normal, Moist Mucous Membranes Neck: Full Range of Motion, Normal Inspection, Non Tender, Supple Respiratory: Lungs Clear, Normal Breath Sounds, No Accessory Muscle Use, No Respiratory Distress Cardiovascular: Regular Rate, Rhythm, Normal Peripheral Pulses Gastrointestinal: Normal Bowel Sounds, Non Tender, Soft Back: No CVA Tenderness Extremity: Normal Capillary Refill, Normal Inspection, Normal Range of Motion, Non Tender, No Calf Tenderness Neurologic/Psychiatric: Alert, Oriented x3, No Motor/Sensory Deficits, Normal 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, 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 Norm as Tested, Other (normal heel to brown; neg romberg) Skin: Normal Color, Warm/Dry Progress/Results/Core Measures Suspected Sepsis SIRS Temperature: Pulse: Respiratory Rate: Laboratory Tests 09/30/21 10:17: White Blood Count 11.6H Blood Pressure / Mean: Laboratory Tests 09/30/21 10:17: Creatinine 0.72, Platelet Count 387, Total Bilirubin 0.8 Results/Orders Lab Results Laboratory Tests Test 09/30/21 10:09 09/30/21 10:17 Range/Units Urine Color YELLOW Urine Clarity CLEAR Urine pH 6.0 5-9 Urine Specific [place] 1.025 H 1.016-1.022 Urine Protein NEGATIVE NEGATIVE Urine Glucose (UA) NEGATIVE NEGATIVE Urine Ketones NEGATIVE NEGATIVE Urine Nitrite NEGATIVE NEGATIVE Urine Bilirubin NEGATIVE NEGATIVE Urine Urobilinogen 1.0 < = 1.0 MG/DL Urine Leukocyte Esterase NEGATIVE NEGATIVE Urine RBC (Auto) NEGATIVE NEGATIVE Urine RBC 0-2 /HPF Urine WBC NONE /HPF Urine Squamous Epithelial Cells 5-10 /HPF Urine Crystals NONE /LPF Urine Bacteria NEGATIVE /HPF Urine Casts NONE /LPF Urine Mucus SMALL H /LPF Urine Culture Indicated NO Urine Opiates Screen NEGATIVE NEGATIVE Urine Oxycodone Screen NEGATIVE NEGATIVE Urine Methadone Screen NEGATIVE NEGATIVE Urine Propoxyphene Screen NEGATIVE NEGATIVE Urine Barbiturates Screen NEGATIVE NEGATIVE Ur Tricyclic Antidepressants Screen NEGATIVE NEGATIVE Urine Phencyclidine Screen NEGATIVE NEGATIVE Urine Amphetamines Screen POSITIVE H NEGATIVE Urine Methamphetamines Screen POSITIVE H NEGATIVE Urine Benzodiazepines Screen NEGATIVE NEGATIVE Urine Cocaine Screen NEGATIVE NEGATIVE Urine Cannabinoids Screen NEGATIVE NEGATIVE White Blood Count 11.6 H 4.3-11.0 10^3/uL Red Blood Count 4.88 3.80-5.11 10^6/uL Hemoglobin 14.9 11.5-16.0 g/dL Hematocrit 43 35-52 % Mean Corpuscular Volume 88 80-99 fL Mean Corpuscular Hemoglobin 31 25-34 pg Mean Corpuscular Hemoglobin Concent 35 32-36 g/dL Red Cell Distribution Width 11.9 10.0-14.5 % Platelet Count 387 130-400 10^3/uL Mean Platelet Volume 9.0 9.0-12.2 fL Immature Granulocyte % (Auto) 1 % Neutrophils (%) (Auto) 51 42-75 % Lymphocytes (%) (Auto) 30 12-44 % Monocytes (%) (Auto) 11 0-12 % Eosinophils (%) (Auto) 6 0-10 % Basophils (%) (Auto) 1 0-10 % Neutrophils # (Auto) 6.0 1.8-7.8 10^3/uL Lymphocytes # (Auto) 3.5 1.0-4.0 10^3/uL Monocytes # (Auto) 1.2 H 0.0-1.0 10^3/uL Eosinophils # (Auto) 0.6 H 0.0-0.3 10^3/uL Basophils # (Auto) 0.1 0.0-0.1 10^3/uL Immature Granulocyte # (Auto) 0.1 0.0-0.1 10^3/uL Sodium Level 138 135-145 MMOL/L Potassium Level 3.3 L 3.6-5.0 MMOL/L Chloride Level 103 98-107 MMOL/L Carbon Dioxide Level 23 21-32 MMOL/L Anion Gap 12 5-14 MMOL/L Blood Urea Nitrogen 16 7-18 MG/DL Creatinine 0.72 0.60-1.30 MG/DL Estimat Glomerular Filtration Rate 108 BUN/Creatinine Ratio 22 Glucose Level 102 70-105 MG/DL Calcium Level 8.7 8.5-10.1 MG/DL Corrected Calcium 8.6 8.5-10.1 MG/DL Total Bilirubin 0.8 0.1-1.0 MG/DL Aspartate Amino Transf (AST/SGOT) 13 5-34 U/L Alanine Aminotransferase (ALT/SGPT) 16 0-55 U/L Alkaline Phosphatase 94 40-136 U/L Total Protein 7.2 6.4-8.2 GM/DL Albumin 4.1 3.2-4.5 GM/DL My Orders Orders - SHANTANU PAERKH MD Ed Iv/Invasive Line Start (09/30/21 10:14) Cbc With Automated Diff (09/30/21 10:14) Comprehensive Metabolic Panel (09/30/21 10:14) Ua Culture If Indicated (09/30/21 10:14) Drug Screen Stat (Urine) (09/30/21 10:14) Vital Signs/I&O 09/30/21 09:44 Temp 36.0 Pulse 106 Resp 20 B/P (MAP) 126/75 (92) Pulse Ox 98 O2 Delivery Room Air Capillary Refill : Progress Note : Time: 10:58 Progress Note Patient's labs reviewed, she has a mildly reduced potassium level at 3.3. She has no other real abnormalities on laboratory evaluation. Her urine is not infected. She is curiously positive for methamphetamine, the patient previously denied any illicit substance use. She has stable vital signs. No clinical or objective findings at this time to warrant further studies in regards to her "brain fog" complaints and back pain and abdominal pain. Supportive care will be recommended. Fluids, Tylenol and ibuprofen and follow-up with her primary care physician. All of this is communicated to the patient. All questions are sought and answered. Patient is stable for discharge. Departure Impression Primary Impression: Brain fog Additional Impressions: Back pain Qualified Codes: M54.50 - Low back pain, unspecified Methamphetamine use Disposition: HOME, SELF-CARE Condition: Stable Departure-Patient Inst. Decision time for Depature: 11:00 Referrals: [facility]/KAREN (PCP) Primary Care Physician SHALONDA ELIZALDE (Family) Primary Care Physician Patient Instructions: Evaluating Memory and Thinking Problems, Drug Abuse and Drug Addiction (DC) Add. Discharge Instructions: Follow-up next week with your primary care physician. Take bhlz-axy-[id number] ibuprofen, 3 tablets which is 600 mg every 6 hours with food as needed for back pain. Return to the emergency department if you have any new, concerning or emergent complaints Copy Copies To 1: KHRIS SCHUMACHER KATHRYN M MD Sep 30, 2021 09:56
[2021-09-30 10:19] LABS: BILIRUBIN,URINE NEGATIVE (NEGATIVE); CLARITY,URINE CLEAR; COLOR,URINE YELLOW; GLUCOSE, URINE (UA) NEGATIVE (NEGATIVE); KETONES,URINE NEGATIVE (NEGATIVE); LEUKOCYTE ESTERASE ,URINE NEGATIVE (NEGATIVE); NITRITE,URINE NEGATIVE (NEGATIVE); PROTEIN,URINE NEGATIVE (NEGATIVE)
[2021-09-30 10:24] LABS: BASOPHILS # (AUTO) 0.1 10^3/uL (0.0-0.1); BASOPHILS % (AUTO) 1 % (0-10); EOSINOPHILS # (AUTO) 0.6 10^3/uL (0.0-0.3); EOSINOPHILS % (AUTO) 6 % (0-10); HEMATOCRIT 43 % (35-52); HEMOGLOBIN 14.9 g/dL (11.5-16.0); LYMPHOCYTES # (AUTO) 3.5 10^3/uL (1.0-4.0); LYMPHOCYTES % (AUTO) 30 % (12-44); MEAN CORPUSCULAR HEMOGLOBIN 31 pg (25-34); MEAN CORPUSCULAR HGB CONC 35 g/dL (32-36); MEAN CORPUSCULAR VOLUME 88 fL (80-99); MONOCYTES # (AUTO) 1.2 10^3/uL (0.0-1.0); MONOCYTES % (AUTO) 11 % (0-12); NEUTROPHILS % (AUTO) 51 % (42-75); PLATELET COUNT 387 10^3/uL (130-400); WHITE BLOOD COUNT 11.6 10^3/uL (4.3-11.0)
[2021-09-30 10:29] LABS: BACTERIA,URINE NEGATIVE /HPF; RBC,URINE 0-2 /HPF
[2021-09-30 10:33] LABS: AMPHETAMINE SCREEN, URINE POSITIVE (NEGATIVE); BARBITURATE SCREEN URINE NEGATIVE (NEGATIVE); BENZODIAZEPINES SCREEN URINE NEGATIVE (NEGATIVE); CANNABINOID SCREEN, URINE NEGATIVE (NEGATIVE); COCAINE SCREEN URINE NEGATIVE (NEGATIVE); METHADONE STAT NEGATIVE (NEGATIVE); OPIATE SCREEN URINE NEGATIVE (NEGATIVE); OXYCODONE STAT NEGATIVE (NEGATIVE); PROPOXYPHENE STAT NEGATIVE (NEGATIVE); TRICYCLIC ANTIDEPRESSANTS SCRE NEGATIVE (NEGATIVE)
[2021-09-30 10:36] LABS: ALBUMIN 4.1 GM/DL (3.2-4.5); POTASSIUM 3.3 MMOL/L (3.6-5.0)
[2021-09-30 10:37] LABS: CALCIUM 8.7 MG/DL (8.5-10.1)
[2021-09-30 10:39] LABS: TOTAL PROTEIN 7.2 GM/DL (6.4-8.2)
[2021-09-30 10:40] LABS: BILIRUBIN,TOTAL 0.8 MG/DL (0.1-1.0)
[2021-09-30 10:42] LABS: CREATININE SERUM 0.72 MG/DL (0.60-1.30)
[2021-09-30 11:27] VITALS: BP 133/88
== END 2021-09-30 11:27 | disposition home or self-care (01) ==
LOC: EDUNIT# 09:38 → ER 09:42
DX: M54.50 Low back pain, unspecified (principal); R41.840 Attention and concentration deficit; E87.6 Hypokalemia; F17.210 Nicotine dependence, cigarettes, uncomplicated
CPT/HCPCS: 36415; 80053; 80306; 81000; 85025

== ENCOUNTER 2022-01-04 01:05 | Emergency (ER) | payer MEDICAID ==
[2022-01-04 01:20] VITALS: BP 162/93
[2022-01-04 01:24] LABS: BILIRUBIN,URINE NEGATIVE (NEGATIVE); CLARITY,URINE SL CLOUDY; COLOR,URINE ORANGE; GLUCOSE, URINE (UA) 1+ (NEGATIVE); KETONES,URINE TRACE (NEGATIVE); LEUKOCYTE ESTERASE ,URINE 2+ (NEGATIVE); NITRITE,URINE POSITIVE (NEGATIVE); PROTEIN,URINE 2+ (NEGATIVE)
[2022-01-04 01:30] LABS: RBC,URINE 0-2 /HPF; WBC,URINE 25-50 /HPF
[2022-01-04 01:31] LABS: BACTERIA,URINE MODERATE /HPF; SQUAMOUS EPITHELIAL CELL,UR 0-2 /HPF
[2022-01-04] MEDS ORDERED: CEPH500T PO (03:27)
[2022-01-04] MEDS ORDERED: HYOS0.1283 SL (03:27)
--- NOTE | 2022-01-04 03:28 | ED GU-Female ---
General Chief Complaint: - 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 Stated Complaint: POSS UTI Nursing Triage Note: PT PRESENTS WITH SUPRAPUBIC PAIN AND PRESSURE THAT STARTED AROUND 1100 YESTERDAY. REPORTS BURNING WITH URINATION, URINARY FREQUENCY, AND PAIN. REPORTS TAKING OTC AZO, URINE IS ORANGE. Source: patient Exam Limitations: no limitations History of Present Illness Date Seen by Provider: Jan 04, 2022 Time Seen by Provider: 01:11 Initial Comments This 41-year-old woman presents to the emergency room with about 24 hours of UTI symptoms primarily consisting of a burning cramping sensation prolonged after urination and urinary frequency. She took Azo at home which did not seem to help much. She is afebrile and denies any hematuria. Allergies and Home Medications Allergies Coded Allergies: morphine (Verified Allergy, Unknown, 10/04/15) Patient Home Medication List Home Medication List Reviewed: Yes Cephalexin (Cephalexin) 500 Mg Tablet, 500 MG PO TID Prescribed by: JONATHAN HERNANDEZ on 01/04/22326 Cyclobenzaprine HCl (Cyclobenzaprine HCl) 5 Mg Tablet, 5 MG PO Q8H PRN for PAIN- BREAKTHROUGH Prescribed by: DAVID OROURKE on 04/11/21 1748 Hydrocodone Bit/Acetaminophen (Lortab 5 Mg Tablet) 1 Each Tablet, 1 TAB PO Q6H PRN for PAIN-SEVERE (8-10) Prescribed by: RACHEL PALMA on 06/30/19 0024 Hydrocodone/Acetaminophen (Hydrocodone-Acetamin 5-325 mg) 1 Each Tablet, 1 TAB PO Q6H PRN for PAIN-MODERATE (5-7) Prescribed by: DAVID OROURKE on 04/11/21 174 Hyoscyamine Sulfate (Levsin-Sl) 0.125 Mg Tab.subl, 0.125 MG SL Q4H PRN for SPASMS Prescribed by: JONATHAN HERNANDEZ on 01/04/22326 Lisinopril (Lisinopril) 10 Mg Tablet, 10 MG PO DAILY, (Reported) Entered as Reported by: DANGELO YUSUF on 07/09/181336 Metoprolol Succinate (Metoprolol Succinate) 100 Mg Tab.er.24h, 100 MG PO DAILY, (Reported) Entered as Reported by: DANGELO YUSUF on 07/09/181336 Metronidazole (Flagyl) 500 Mg Tablet, 500 MG PO BID Prescribed by: JONATHAN HERNANDEZ on 11/29/19 0444 Multivit with Calcium,Iron,Min (Women's Daily Formula) 1 Each Tablet, 1 EACH PO DAILY, (Reported) Entered as Reported by: DANGELO YUSUF on 07/09/18 1337 Ofloxacin (Ofloxacin) 5 Ml Drops, 10 DROPS OP DAILY Prescribed by: SUKI SALES on 03/15/19 1701 Ondansetron (Ondansetron Odt) 4 Mg Tab.rapdis, 4 MG PO Q6H PRN for NAUSE A/VOMITING Prescribed by: RACHEL PALMA on 06/30/19 0023 Ondansetron (Ondansetron Odt) 4 Mg Tab.rapdis, 4 MG PO Q6H PRN for NAUSEA-1ST LINE Prescribed by: DAVID OROURKE on 04/11/21 1749 Sucralfate (Carafate) 1 Gm/10 Ml Oral.susp, 1 GM PO TIDAC Prescribed by: RACHEL PALMA on 06/30/19 0023 Review of Systems Review of Systems Constitutional: no symptoms reported EENTM: no symptoms reported Respiratory: no symptoms reported Cardiovascular: no symptoms reported Gastrointestinal: no symptoms reported Genitourinary: see HPI : No Musculoskeletal: no symptoms reported Skin: no symptoms reported Psychiatric/Neurological: No Symptoms Reported Endocrine: No Symptoms Reported Hematologic/Lymphatic: No Symptoms Reported Past Weherco-Evvqql-Crbjiq Hx Patient Social History Tobacco Use?: Yes Smoking Status: Current Everyday Smoker Substance use?: No Alcohol Use?: No Pt feels they are or have been: No Immunizations Up To Date Tetanus Booster (TDap): Less than 5yrs PED Vaccines UTD: Yes Influenza Vaccine Up-to-Date: Yes; Up-to-Date First/Initial COVID19 Vaccinat: UNKNOWN Second COVID19 Vaccination Jeovany: UNKNOWN COVID19 Vaccine 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 Seasonal Allergies Seasonal Allergies: No Past Medical History Surgery/Hospitalization HX: BRAIN TUMOR REMOVED X2 YRS AGO, C SECTION, PARTIAL HYST Surgeries: Yes (D&C X2; HYST/OVARIES INTACT, Brain Tumor Removal) Appendectomy, Section, Gallbladder, Hysterectomy, Neurological Respiratory: No Currently Using CPAP: No Currently Using BIPAP: No Cardiac: Yes Hypertension Neurological: Yes Brain Tumor (Meningioma status postresection) 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 Disorders: No Female 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 Disorders: Denies, Endometriosis 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 Sexually Transmitted Disease: No HIV/AIDS: No Genitourinary: Yes (History of urinary tract infections) Gastrointestinal: Yes (dysphagia) Gastroesophageal Reflux, Hiatal Hernia, Gall Bladder Disease Musculoskeletal: Yes Chronic Back Pain Endocrine: No HEENT: No Loss of Vision: Denies Hearing Impairment: Denies Cancer: No Psychosocial: No Integumentary: No Blood Disorders: No Adverse Reaction/Blood Tranf: No Family Medical History Diabetes mellitus FHx: ovarian cancer No Pertinent Family Hx Physical Exam Vital Signs Vital Signs - First Documented 01/04/22 01:20 Pulse 101 Resp 18 B/P (MAP) 162/93 (116) Pulse Ox 96 O2 Delivery Room Air Capillary Refill : Height, Weight, BMI Height: 5'5.00" Weight: 149lbs. 0.0oz. [id number]; 25.00 BMI Method:Stated General Appearance: WD/WN, no apparent distress HEENT: normal ENT inspection Neck: normal inspection Cardiovascular: regular rate, rhythm, no edema, no murmur Respiratory: lungs clear, normal breath sounds, no respiratory distress Gastrointestinal: normal bowel sounds, soft, tenderness (Mild in the suprapubic region) Extremities: normal inspection, no pedal edema Neurologic/Psychiatric: alert, normal mood/affect, oriented x 3 Skin: normal color, warm/dry Progress/Results/Core Measures Suspected Sepsis SIRS Temperature: Pulse: 101 Respiratory Rate: 18 Blood Pressure 162 /93 Mean: 116 Results/Orders Lab Results Laboratory Tests Test 01/04/22 01:19 Range/Units Urine Color ORANGE Urine Clarity SL CLOUDY Urine pH 7.0 5-9 Urine Specific [place] 1.020 1.016-1.022 Urine Protein 2+ H NEGATIVE Urine Glucose (UA) 1+ H NEGATIVE Urine Ketones TRACE H NEGATIVE Urine Nitrite POSITIVE H NEGATIVE Urine Bilirubin NEGATIVE NEGATIVE Urine Urobilinogen >=8.0 < = 1.0 MG/DL Urine Leukocyte Esterase 2+ H NEGATIVE Urine RBC (Auto) TRACE-I H NEGATIVE Urine RBC 0-2 /HPF Urine WBC 25-50 H /HPF Urine Squamous Epithelial Cells 0-2 /HPF Urine Crystals NONE /LPF Urine Bacteria MODERATE H /HPF Urine Casts NONE /LPF Urine Mucus NEGATIVE /LPF Urine Culture Indicated YES My Orders Orders - JONATHAN HUDSON MD Ua Culture If Indicated (01/04/22 01:11) Urine Culture (01/04/22 01:19) Hyoscyamine Sl Tablet (Levsin Sl Tablet) (01/04/22 03:30) Ceftriaxone (Rocephin) (01/04/22 03:30) Lidocaine 1% Inj 20 Ml (Xylocaine 1% Inj (01/04/22 03:30) Medications Given in ED Current Medications Medications Dose Ordered Sig/Lance Route Start Time Stop Time Status Last Admin Dose Admin Ceftriaxone Sodium 1,000 mg ONCE ONCE IM 01/04/22 03:30 01/04/22 03:31 DC 01/04/22 03:31 1,000 MG Hyoscyamine Sulfate 0.125 mg ONCE ONCE SL 01/04/22 03:30 01/04/22 03:31 DC 01/04/22 03:31 0.125 MG Lidocaine HCl 2.1 ml ONCE ONCE INJ 01/04/22 03:30 01/04/22 03:31 DC 01/04/22 03:31 2.1 ML Vital Signs/I&O 01/04/22 01:20 Pulse 101 Resp 18 B/P (MAP) 162/93 (116) Pulse Ox 96 O2 Delivery Room Air Capillary Refill : Blood Pressure Mean: 116 Progress Note : Progress Note Patient offered a Rocephin injection for aggressive treatment which she accepted. Levsin given for cramping. See discharge instructions. Departure Impression Primary Impression: Urinary tract infection Qualified Codes: N39.0 - Urinary tract infection, site not specified Additional Impression: Bladder spasms Disposition: HOME, SELF-CARE Condition: Improved Departure-Patient Inst. Decision time for Depature: 03:24 Referrals: NO,LOCAL PHYSICIAN (PCP/Family) Primary Care Physician Patient Instructions: Urinary Tract Infection, Adult ED, Bladder Spasms (DC) Add. Discharge Instructions: Complete your antibiotic as prescribed. If you are not noticing significant improvement after 48 hours, you may contact the ER to review urine culture results. Drink plenty of clear liquids to stay well-hydrated and urinate often. Use Levsin (hyoscyamine) as prescribed for bladder spasms. You may use Tylenol (acetaminophen) and/or ibuprofen for general pain. Establish with a primary care provider as soon as possible. To prevent future urinary tract infections, drink plenty of clear liquids, wipe front to back, urinate often, and urinate after intercourse. Return to the ER if you have worsening symptoms or develop new symptoms such as fever despite following these instructions. All discharge instructions reviewed with patient and/or family. Voiced understanding. Scripts Hyoscyamine Sulfate (Levsin-Sl) 0.125 Mg Tab.subl 0.125 MG SL Q4H PRN for SPASMS, #10 TAB 0 Refills Prov: JONATHAN HUDSON MD 01/04/22 Cephalexin (Cephalexin) 500 Mg Tablet 500 MG PO TID, #20 TAB Prov: JONATHAN HUDSON MD 01/04/22 JONATHAN HUDSON MD Jan 04, 2022 03:28
[2022-01-04] MEDS ORDERED: LIDOCAINE 1% INJ 20 ML VIAL INJ ONE (03:30)
[2022-01-04] MEDS ORDERED: HYOSCYAMINE 0.125 MG (LEVSIN) TAB SL ONE (03:30)
[2022-01-04] MEDS ORDERED: cefTRIAXone 1,000 MG VIAL IM ONE (03:30)
== END 2022-01-04 03:47 | disposition home or self-care (01) ==
LOC: EDUNIT# 01:05 → ER 01:08
DX: N39.0 Urinary tract infection, site not specified (principal); N32.89 Other specified disorders of bladder; F17.200 Nicotine dependence, unspecified, uncomplicated
CPT/HCPCS: 81000; 87077; 87088; 87186; 99284

== ENCOUNTER → 2022-08-22 | Outpatient (CLI) | payer OTHER, MEDICAID ==
[~2022-08-22] MED LIST changes: +CEPH500T PO; +HYOS0.1283 SL
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
== END ==
LOC: RAD 07:42
PROVIDERS: ATTEND Nurse Practitioner Family
DX: M54.50 Low back pain, unspecified (principal); M54.6 Pain in thoracic spine; M62.830 Muscle spasm of back
CPT/HCPCS: 72072; 72100